=== PATIENT | female | born 1955 | race Caucasian/White ===

== ENCOUNTER → 2016-11-02 | Outpatient (CLI) | payer BC ==
[~2016-11-02] MED LIST: ACET-749 PO; AMB/10 PO; CALCTAB7 PO; CLR10 PO; DXM/4 PO; GLC/500 PO; LISI-461 PO; LORA-741 PO; LVNIS150; MULT-506 PO; RANI150T3 PO; SIMV-151 PO; WARF5TAB90 PO
[2016-11-02 10:01] LABS: ESTIMATED AVERAGE GLUCOSE 183 mg/dl; HA1C FLAG Normal (Normal)
== END | disposition home or self-care (01) ==
LOC: C.LAB 14:33
PROVIDERS: ATTEND Internal Medicine
DX: E11.9 Type 2 diabetes mellitus without complications (principal)

== ENCOUNTER → 2016-11-25 | Outpatient (CLI) | payer BC ==
[~2016-11-25] MED LIST changes: +OPTIRAY 320 IV PRN
--- NOTE | 2016-11-25 13:24 | DIAGNOSTIC IMAGING REPORT ---
CT SCAN OF THE ABDOMEN AND PELVIS WITH IV CONTRAST CLINICAL HISTORY: Ovarian cancer. COMPARISON STUDY: Abdominal CT dated 08/04/2016 and 09/11/2014. TECHNIQUE: Following the IV administration of 119 cc of Optiray 320, CT scan of the abdomen and pelvis is performed from the lung bases to the proximal femora. Images are reviewed in the axial, sagittal, and coronal planes. IV contrast was administered without complication. Automated dose control exposure was utilized. The examination is degraded by streak artifact from the left arm which could not be elevated above the abdomen. FINDINGS: Lung bases: The heart is top normal in size and without pericardial effusion. Scarring versus atelectasis is noted in the lingula. The lung bases are otherwise clear. There is a small hiatal hernia. Liver: The contrast-enhanced liver is enlarged, measuring 20.5 cm in length. The liver demonstrates diffusely diminished attenuation consistent with severe hepatic steatosis. There is no intrahepatic biliary ductal dilatation. The hepatic veins and portal veins are patent. Gallbladder: Surgically absent noting clips in the gallbladder fossa. Spleen: Normal in size and attenuation. The low-density splenic lesion seen on 08/04/2016 has decreased in size, now measuring 1.3 cm (previously measured 2.1 cm). Pancreas: Moderately atrophic. Adrenal glands: Unremarkable. Kidneys: The contrast enhanced kidneys demonstrate cortical atrophy and are without hydronephrosis. The kidneys enhance symmetrically. There is an 8.7 cm cyst in the interpolar left kidney. Abdominal vasculature: The abdominal aorta is normal in course and caliber noting scattered foci of atherosclerotic calcification. Bowel: The small bowel and colon are normal in course and caliber. There is mild colonic diverticulosis without CT evidence of acute diverticulitis. The appendix is well-visualized and normal. Peritoneum: There is no intraperitoneal free air or abdominal ascites. Findings suggest a history of previous ventral hernia repair. A small seroma in the ventral abdominal pannus has almost completely resolved from 08/04/2016. Lymphadenopathy: Metastatic lymphadenopathy has significantly improved as compared to 08/04/2016. The enlarged right cardiophrenic lymph node has almost completely resolved, now measuring up to 5 mm as seen on image #49 (previously measured 1.4 x 1.9 cm.) Left periaortic adenopathy and right pelvic sidewall adenopathy have resolved. A left external iliac chain node is significantly decreased in size, measuring 1.2 x 1.5 cm (previously measured 2.3 x 1.5 cm.) Pelvic viscera: The bladder is normal as visualized. The uterus is surgically absent. The cervical cuff is normal as imaged. The previously identified pelvic mass seen anterior to the rectum on 08/04/2016 has almost completely resolved. This now measures 0.8 x 1.3 cm (previously measured 2.6 x 3.5 cm). There is a fat-containing right inguinal hernia. Skeletal structures: The skeletal structures are osteopenic. Mild lumbosacral spondylosis is observed. No lytic or blastic lesions are seen. IMPRESSION: 1. Positive response to treatment, with near complete to complete resolution of the metastatic foci identified on 08/04/2016. See above. 2. The low-attenuation splenic lesion has significantly decreased in size from previous. 3. Hepatomegaly and hepatic steatosis. 4. Mild colonic diverticulosis without CT evidence of acute diverticulitis. 5. Additional changes as above. Electronically signed by: Mark Lux M.D. 11/25/2016 1:23 PM Dictated Date/Time: 11/25/2016 1:12 PM
--- NOTE | 2016-11-25 13:33 | DIAGNOSTIC IMAGING REPORT ---
CT OF THE CHEST WITH IV CONTRAST CLINICAL HISTORY: Ovarian cancer. COMPARISON STUDY: Chest CT August 04, 2016. TECHNIQUE: Following IV administration of 119 mL of Optiray-320, helical axial images of the chest were obtained. Images were viewed in the axial, sagittal and coronal planes. IV contrast was administered without complication. FINDINGS: A right internal jugular [id number] is in place. Thrombus along the catheter tip within the proximal SVC is noted. The thrombus measures 2.4 x 1.7 x 0.9 cm. In retrospect, this thrombus was probably present on prior exam but has increased in size. Mild cardiomegaly is noted. There is no pericardial effusion. The previously described right anterior diaphragmatic lymph node shown image 191 of [id number] has markedly decreased in size since exam of August 04, 2016. This node now measures 0.7 x 0.6 cm. It previously measured 1.6 x 1.6 cm. A splenic lesion is better depicted on the abdominal CT but is also decreased in size. No enlarged thoracic lymph nodes are present. The central airways are patent. There are no suspicious pulmonary nodule. No pneumothorax or pleural effusion is present. No suspicious osseous lesions are identified. No pulmonary emboli are identified on this examination. IMPRESSION: 1. 2.4 x 1.7 x 0.9 cm thrombus along the tip of the right internal jugular [id number]-[id number] within the proximal SVC. In retrospect, this thrombus was probably present on prior exam of August 04, 2016 but has increased in size. No pulmonary emboli identified. 2. Marked interval decrease in size of the previously described right anterior diaphragmatic lymph node as well as interval decrease in size of the splenic lesion. The findings represents a significant treatment response. Electronically signed by: Errol Leonardo M.D. 11/25/2016 1:31 PM Dictated Date/Time: 11/25/2016 1:11 PM
== END | disposition home or self-care (01) ==
LOC: C.CTS 12:15
PROVIDERS: ATTEND Nurse Practitioner Family
DX: C56.9 Malignant neoplasm of unspecified ovary (principal)

== ENCOUNTER → 2016-12-29 | Outpatient (CLI) | payer BC ==
[~2016-12-29] MED LIST changes: -LVNIS150; -OPTIRAY 320 IV PRN
[2016-12-29 09:49] LABS: ESTIMATED AVERAGE GLUCOSE 166 mg/dl; HA1C FLAG Normal (Normal)
== END | disposition home or self-care (01) ==
LOC: C.LAB 19:09
PROVIDERS: ATTEND Physician Assistant
DX: E11.9 Type 2 diabetes mellitus without complications (principal)

== ENCOUNTER → 2017-03-07 | Outpatient (CLI) | payer BC ==
[~2017-03-07] MED LIST changes: +OPTIRAY 320 IV PRN
--- NOTE | 2017-03-07 16:02 | DIAGNOSTIC IMAGING REPORT ---
CT ABD/PELVIS IV AND ORAL CONT CLINICAL HISTORY: Ovarian carcinoma COMPARISON STUDY: 11/25/2016 TECHNIQUE: Following the IV administration of 93 mL of Optiray-320, CT scan of the abdomen and pelvis was performed from the lung bases to the proximal femurs. Images are reviewed in the axial, sagittal, and coronal planes. IV contrast was administered without complication. CT DOSE: 1837.07 mGy.cm FINDINGS: Lower chest: The heart is normal in size and configuration, without pericardial effusion. The lung bases and pleural spaces are clear. Liver: There is hepatic steatosis. No focal masses are visualized. The portal vein is patent. Gallbladder: Surgically absent Spleen: Normal in size and attenuation. Pancreas: Unremarkable. Adrenal glands: Unremarkable. Kidneys: There is a stable 8.4 cm left renal cyst. Bowel: There are no transition zones indicate bowel obstruction. There is colonic diverticulosis. There are no acute peridiverticular inflammatory changes. The appendix appears normal. Peritoneum: There is no intraperitoneal free air or abdominal ascites. There is a small fat-containing right inguinal hernia. Vasculature: The abdominal aorta is normal in course and caliber. Adenopathy: The left external iliac lymph node has further decreased in size currently measuring 13 x 10 mm. Pelvic viscera: The uterus is surgically absent. The previously described nodule anterior the rectum measures 10 x 3 mm. Skeletal structures: No destructive osseous lesions are seen. IMPRESSION: 1. Hepatic steatosis 2. Further reduction in the size of the soft tissue nodule anterior to the rectum which currently measures 10 x 3 mm 3. Further decrease in the size of the left external iliac lymph node which probably measures 13 x 10 mm. No evidence of progressive lymphadenopathy. 4. No evidence of progressive metastatic disease Electronically signed by: Vinicius Maloney M.D. 03/07/2017 4:00 PM Dictated Date/Time: 03/07/2017 3:11 PM
--- NOTE | 2017-03-08 09:20 | DIAGNOSTIC IMAGING REPORT ---
CT OF THE CHEST WITH IV CONTRAST CLINICAL HISTORY: Ovarian cancer. COMPARISON STUDY: Chest CT November 25, 2016. TECHNIQUE: Following IV administration of 93 mL of Optiray-320, helical axial images of the chest were obtained. Images were viewed in the axial, sagittal and coronal planes. IV contrast was administered without complication. FINDINGS: Suspected thrombus along the tip of the right internal jugular Hkalsu-i-Lptn is similar to exam of November 25, 2016. The pulmonary arteries are suboptimally evaluated on this exam but there is no large central pulmonary embolus. The heart is mildly enlarged. There is no pericardial effusion. No enlarged axillary, mediastinal or hilar lymph nodes are present. The previously described right anterior diaphragmatic lymph node has continued to decrease in size. This now measures 4 mm in size. It previously measured 7 x 6 mm. The abdomen and pelvis will be reported separately but the previously described splenic lesion has decreased in size. This now measures 9 mm. It previously measured 1 cm. There are no suspicious osseous lesions. There are no suspicious pulmonary nodules. There is no pneumothorax or pleural effusion. IMPRESSION: 1. Findings consistent with a continued treatment response with interval decrease in size of the previously described right anterior diaphragmatic lymph node and the splenic lesion. 2. No significant change in suspected thrombus along the tip of the right internal jugular [id number] within the proximal SVC since prior exam. Electronically signed by: Errol Leonardo M.D. 03/08/2017 9:18 AM Dictated Date/Time: 03/07/2017 3:18 PM
== END | disposition home or self-care (01) ==
LOC: C.CTS 14:20
PROVIDERS: ATTEND Nurse Practitioner Family
DX: C56.9 Malignant neoplasm of unspecified ovary (principal); R91.8 Other nonspecific abnormal finding of lung field; K76.0 Fatty (change of) liver, not elsewhere classified

== ENCOUNTER → 2017-05-11 | Outpatient (CLI) | payer BC ==
[~2017-05-11] MED LIST changes: -CLR10 PO; -DXM/4 PO; -OPTIRAY 320 IV PRN; -RANI150T3 PO
--- NOTE | 2017-05-11 14:56 | MAMMOGRAPHY REPORT ---
BILATERAL DIGITAL SCREENING MAMMOGRAM TOMOSYNTHESIS WITH CAD: 05/11/2017 CLINICAL HISTORY: Routine screening. Patient has no complaints. TECHNIQUE: Breast tomosynthesis in addition to standard 2D mammography was performed. Current study was also evaluated with a Computer Aided Detection (CAD) system. COMPARISON: Comparison is made to exams dated: 01/27/2016 mammogram, 01/19/2016 mammogram, 01/16/2015 m ammogram, 08/27/2013 mammogram, 08/10/2012 mammogram, and 08/09/2011 mammogram - [facility]. BREAST COMPOSITION: The tissue of both breasts is almost entirely fatty. FINDINGS: No suspicious masses, calcifications, or areas of architectural distortion are noted in ei ther breast. There has been no significant interval change compared to prior exams. IMPRESSION: ACR BI-RADS CATEGORY 1: NEGATIVE There is no mammographic evidence of malignancy. A 1 year screening mammogram is recommended. The pa tient will receive written notification of the results. Approximately 10% of breast cancers are not detected with mammography. A negative mammographic report should not delay biopsy if a clinically suggestive mass is present. Tammy Rosa M.D. /:05/11/2017 13:20:34 Product Inspection Supervisor: Iraida Silva, M, [facility] letter sent: Normal 1/2 BI-RADS Code: ACR BI-RADS Category 1: Negative
== END | disposition home or self-care (01) ==
LOC: C.MAMM 12:20
PROVIDERS: ATTEND Obstetrics & Gynecology
DX: Z12.31 Encounter for screening mammogram for malignant neoplasm of breast (principal)

== ENCOUNTER → 2017-11-03 | Outpatient (CLI) | payer OTHER ==
[~2017-11-03] MED LIST changes: -ACET-749 PO
== END | disposition home or self-care (01) ==
LOC: C.LAB 13:39
PROVIDERS: ATTEND Obstetrics & Gynecology
DX: Z85.43 Personal history of malignant neoplasm of ovary (principal)

== ENCOUNTER → 2018-05-14 | Outpatient (CLI) | payer OTHER ==
[~2018-05-14] MED LIST changes: -WARF5TAB90 PO
--- NOTE | 2018-05-15 14:44 | MAMMOGRAPHY REPORT ---
BILATERAL DIGITAL SCREENING MAMMOGRAM TOMOSYNTHESIS WITH CAD: 05/14/2018 CLINICAL HISTORY: Routine screening. Patient has no complaints. TECHNIQUE: The study was acquired using full field digital technology and interpreted from soft copy. Breast tomosynthesis in addition to standard 2D mammography was performed. Current study was also ev aluated with a Computer Aided Detection (CAD) system. COMPARISON: Comparison is made to exams dated: 05/11/2017 mammogram, 01/27/2016 mammogram, 01/19/2016 ma mmogram, 01/16/2015 mammogram, 01/27/2016 ultrasound, and 08/10/2012 mammogram - [facility] enter. BREAST COMPOSITION: The tissue of both breasts is almost entirely fatty. FINDINGS: There are stable intramammary lymph nodes in the upper outer posterior left breast. A port ion of a MediPort hub is incompletely visualized in the superior, far posterior right breast, project ing over the pectoralis muscle on the MLO view. No suspicious mass, architectural distortion or clust er of microcalcifications is seen. IMPRESSION: ACR BI-RADS CATEGORY 1: NEGATIVE There is no mammographic evidence of malignancy. A 1 year screening mammogram is recommended.( 019) The patient will receive written notification of the results. Some breast cancers are not detected with mammography. A negative mammographic report should not benitez y biopsy if a clinically suggestive mass is present. Erica Monreal M.D. ay/:05/14/2018 16:14:50 Director Of Patient Financial Services: RT Sylvia(Iraida)(M), [facility] letter sent: Normal 1/2 BI-RADS Code: ACR BI-RADS Category 1: Negative
== END | disposition home or self-care (01) ==
LOC: C.MAMM 12:04
PROVIDERS: ATTEND Obstetrics & Gynecology
DX: Z12.31 Encounter for screening mammogram for malignant neoplasm of breast (principal)

== ENCOUNTER 2021-08-03 14:00 | Inpatient (IN) ==
--- NOTE | 2021-08-03 14:42 | Emergency Department Note ---
History of Present Illness General Chief complaint: Shortness of Breath/Dyspnea Stated complaint: BLOOD CLOT IN LUNG, SOB Time Seen by Provider: 08/03/21 14:20 Source: patient History of Present Illness Provider complaint: Chest pain and shortness of breath Onset (ago): week(s) 2 Location: chest Radiation: non-radiation Pain Consistency: + constant Maximum Pain Intensity: 7 Quality: + other (Like a knot in her chest) Relieved By: + none Exacerbated By: + other (Shortness of breath worsened with exertion) Associated symptoms: + chest pain, + cough and + shortness of breath; no fever/chills or no nausea/vomiting This is an 85-year-old female presents with chest pain and shortness of breath for the past 2 weeks. She describes the pain as a knot in her chest. It is located in the middle of her chest without radiation. She rates it a 7 out of 10 in severity. It is associated with shortness of breath. Her shortness of breath gets worse when she walks around. She has had a cough with the symptoms and was treated for a bronchitis. She had a negative Covid test 2 weeks ago. She had a CAT scan of the chest and abdomen pelvis today due to her history of lung cancer and she was found to have clots in her lungs. She does have a prior history of PE about 4 years ago. This occurred after she had a hysterectomy for ovarian cancer. She was on Coumadin for a time but is no longer on any anticoagulants. She did tolerate heparin as well as Coumadin well. No history of bleeding. She has noticed swelling to both of her feet over the past 2 weeks as well. She had some diarrhea which is now resolved. She denies any fever, abdominal pain, vomiting, urinary symptoms or black or bloody stools. Home Medications Medication Instructions Recorded Confirmed Type lisinopril 10 mg tablet 10 mg PO QAM 08/27/18 08/03/21 History lorazepam 0.5 mg tablet 0.5 mg PO TID PRN 08/27/18 08/03/21 History metformin 500 mg tablet 1,000 mg PO BID 08/27/18 08/03/21 History multivitamin 1 tab PO QAM 08/27/18 08/03/21 History simvastatin 20 mg tablet 20 mg PO PM 08/27/18 08/03/21 History zolpidem 10 mg tablet 1 tab PO HS 08/27/18 08/03/21 History prochlorperazine maleate 5 mg 5 mg PO TID PRN 06/18/21 08/03/21 History tablet (Compazine) olanzapine 2.5 mg tablet 2.5 mg PO HS 08/03/21 08/03/21 History oxycodone 5 mg tablet 5 mg PO .EVERY 4-6 HOURS PRN 08/03/21 08/03/21 History pantoprazole 40 mg tablet,delayed 40 mg PO QAM 08/03/21 08/03/21 History release prednisone 20 mg tablet 20 mg PO DAILY 08/03/21 08/03/21 History Allergies Allergy/AdvReac Type Severity Reaction Status Date / Time No Known Allergies Allergy Verified 08/03/21 15:53 Past Med/Surg History Medical History Anxiety CKD (chronic kidney disease), stage III Degenerative disc disease Diabetes mellitus, type 2 History of anesthesia reaction difficulty waking after cataract surgery Hyperlipidemia Hypertension Metastatic disease ovarian cancer with 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 Treated with systemic chemotherapy. Continued surveillance and finding of lymphadenopathy/nodule of the pelvis February 23, 2018 Status post fine-needle aspiration April 18, 2018 revealing metastatic adenocarcinoma consistent with ovarian origin. Status post completion of stereotactic body radiation therapy June 04, 2018. 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 Treated with systemic chemotherapy. Continued surveillance and finding of lymphadenopathy/nodule of the pelvis February 23, 2018 Status post fine-needle aspiration April 18, 2018 revealing metastatic adenocarcinoma consistent with ovarian origin." Surgical History History of bilateral cataract extraction History of cholecystectomy History of esophagogastroduodenoscopy (EGD) History of tonsillectomy and adenoidectomy History of tooth extraction wisdom teeth History of total abdominal hysterectomy and bilateral salpingo-oophorectomy 2013 Hx of inguinal hernia repair unsure which side Family History Grandmother Family history of diabetes mellitus maternal Social History Smoking Status: Former smoker Smoking End Date: quit 20 years ago; Second Hand Exposure: Yes (parents smoked); Hx Alcohol Use: No Hx Substance Use: No Preferred Language: Bur[place]ian Communication Ability: Effective Medication Care Manager Required: No Beliefs That Will Affect Care: None Current Living Situation: Alone Other Information That Helps Us Care for You: No Feels Safe at Home: Yes Safety Concerns: Feels Safe At This Time Assistive Devices: Glasses Review of Systems See HPI for pertinent positives & negatives. and A total of 10 systems reviewed and were otherwise negative Physical Exam Vital Signs Vital Signs - 24 hr 08/03/21 14:02 08/03/21 14:15 08/03/21 14:33 Temperature 36.4 C L Temperature Source Temporal Artery Scan Pulse Rate 108 H 108 H Pulse Rate from SpO2 Sensor Pulse Rhythm Regular Respiratory Rate 20 20 Respiratory Effort / Characteristics Non-Labored Spontaneous Respiratory Depth Normal Blood Pressure 106/71 Blood Pressure Mean 82 Blood Pressure Position Sitting Pulse Oximetry 93 93 Oxygen Delivery Method Room Air Room Air Room Air Sepsis Recent Fever Within 48 Hours No Sepsis New/Unexplained Change in Mental Status N/A Sepsis Action Taken by Nursing No Action Required 08/03/21 15:00 Temperature Temperature Source Pulse Rate 107 H Pulse Rate from SpO2 Sensor 104 H Pulse Rhythm Respiratory Rate 17 Respiratory Effort / Characteristics Respiratory Depth Blood Pressure 112/93 Blood Pressure Mean 99 Blood Pressure Position Pulse Oximetry 96 Oxygen Delivery Method Room Air Sepsis Recent Fever Within 48 Hours Sepsis New/Unexplained Change in Mental Status Sepsis Action Taken by Nursing Constitutional: Vital signs reviewed. Blood pressure is 137/84. Eyes: Pupils are equal round reactive to light. Conjunctiva are noninjected. ENT: Pharynx is clear without erythema or exudate. Mucous membranes are moist. Neck supple without meningeal signs. Respiratory: Clear to auscultation bilaterally. Breath sounds are equal bilaterally. Cardiovascular: Tachycardic. Heart rate 108. Regular rhythm. GI: Soft, nondistended and nontender. Bowel sounds are present. Musculoskeletal: Bilateral pedal edema. No lower extremity tenderness. Integumentary: No cyanosis. or jaundice. Neurological: The patient is awake and alert. No focal deficits. Psychiatric: Normal affect. Not anxious appearing. Course Administered Medications Heparin Sodium/Dextrose (Heparin Sodium/Dextrose) 25,000 units in 500 mls @ 24 mls/hr IV .[id number] [facility]; Protocol Stop: 09/02/21 15:14 Last Admin: 08/03/21 15:02 Dose: 1,200 units/hr, 24 mls/hr Documented by: [id number] Cosigned by: [id number] Sodium Chloride (Nss 1000ml) 1,000 mls @ 80 mls/hr IV .[id number] [facility] Stop: 09/02/21 18:29 Last Admin: 08/03/21 18:52 Dose: 80 mls/hr Documented by: [id number] Discontinued Medications Heparin Sodium (Porcine) (Heparin Sod (Porcine) 1000 Unit/Ml) 1 units IV NOW ONE Stop: 08/03/21 15:04 Last Admin: 08/03/21 15:02 Dose: 5,000 units Documented by: [id number] Cosigned by: [id number] Heparin Sodium/Dextrose (Heparin Iv Adult Wt-Based Standard With Bolus Protocol) 1 ea IV NOW STA; Protocol Stop: 08/03/21 14:49 Last Admin: 08/03/21 15:05 Dose: Not Given Documented by: [id number] Critical Care Time Critical Care Time: Yes Total Critical Care Time: 40 I have personally spent approximately 40 minutes of critical care time in the direct management of this patient. This includes bedside care, interpretation of diagnostic studies, and testing, discussion with consultants, patient, and family members, and other required patient management activities. These minutes are in excess of all separately billable procedures. Medical Decision Making Differential Diagnosis Pulmonary emboli, DVT, saddle embolus, right heart strain, pulmonary infarct Medical Records Attestation: I reviewed the patient's medical records. I did perform a limited focused review of portions of the patient's old chart on the electronic medical record. The patient had a CT scan of the chest and abdomen pelvis today which showed the followin. Extensive bilateral pulmonary emboli including a saddle embolus with mild right-sided heart strain. 2. Interval development of small bilateral pleural effusions. 3. Interval progression of the metastatic disease within the chest, abdomen, and pelvis as described above. 4. Interval development of mild right hydronephrosis to the level of the ureteropelvic junction. No ureteral stones identified. Metastatic disease at the ureteropelvic junction would be the diagnosis of exclusion. 5. A small right lower lobe pulmonary infarct. Home Medications Current Medication List: was personally reviewed by me Laboratory Data Attestation: I reviewed the patient's lab results. Result diagrams: 08/03/21 14:16 08/03/21 14:16 Lab Results 08/03/21 08/03/21 08/03/21 Range/Units 14:16 14:16 14:16 WBC 9.51 (4.8-10.8) K/uL RBC 3.00 L (4.2-5.4) M/uL Hgb 10.8 L (12.0-16.0) g/dL Hct 32.9 L (37-47) % MCV 109.7 H (80-100) fL MCH 36.0 H (25-34) pg MCHC 32.8 (32-36) g/dL RDW Std Deviation 80.9 H (36.4-46.3) fL RDW Coeff of Cely 20.1 H (11.5-14.5) % Plt Count 196 (130-400) K/uL MPV 10.2 (7.4-10.4) fL Immature Gran % (Auto) 0.2 % Neut % (Auto) 78.7 % Lymph % (Auto) 13.0 % Rowan % (Auto) 7.6 % Eos % (Auto) 0.4 % Baso % (Auto) 0.1 % Neut # (Auto) 7.48 H (1.4-6.5) K/uL Lymph # (Auto) 1.24 (1.2-3.4) K/uL Rowan # (Auto) 0.72 H (0.11-0.59) K/uL Eos # (Auto) 0.04 (0-0.5) K/uL Baso # (Auto) 0.01 (0-0.2) K/uL Immature Gran # (Auto) 0.02 (0.00-0.02) K/uL Polychromasia 1+ Anisocytosis Present Tear Drop Cells 1+ Ovalocytes 1+ PT 10.4 (9.0-12.0) Seconds INR 1.0 (0.9-1.1) APTT 21.8 (21.0-31.0) Seconds PTT Ratio 0.8 Sodium 133 L (136-145) mmol/L Potassium 4.3 (3.5-5.1) mmol/L Chloride 102 (98-107) mmol/L Carbon Dioxide 22 (21-32) mmol/L Anion Gap 9.0 (3-11) BUN 40 H (7-18) mg/dl Creatinine 1.55 H (0.6-1.2) mg/dl Est Cr Clr Drug Dosing 37.7 ml/min Est GFR ( Amer) 39.7 ml/min Est GFR (Non-Af Amer) 34.3 ml/min BUN/Creatinine Ratio 26.1 H (10-20) Glucose 121 H (70-99) mg/dl Calcium 9.1 (8.5-10.1) mg/dl Total Bilirubin 0.5 (0.2-1) mg/dl AST 47 H (15-37) U/L ALT 16 (12-78) U/L Alkaline Phosphatase 113 (45-117) U/L Troponin I < 0.015 (0-0.045) ng/ml NT-Pro-B Natriuret Pep 223 (0-900) pg/ml Total Protein 6.4 (6.4-8.2) gm/dl Albumin 2.5 L (3.4-5.0) gm/dl Globulin 3.9 (2.5-4.0) gm/dl Albumin/Globulin Ratio 0.6 L (0.9-2) COVID-19 Eval Order SARS-CoV-2 (PCR) (Negative) 08/03/21 08/03/21 Range/Units 14:20 14:20 WBC (4.8-10.8) K/uL RBC (4.2-5.4) M/uL Hgb (12.0-16.0) g/dL Hct (37-47) % MCV (80-100) fL MCH (25-34) pg MCHC (32-36) g/dL RDW Std Deviation (36.4-46.3) fL RDW Coeff of Cely (11.5-14.5) % Plt Count (130-400) K/uL MPV (7.4-10.4) fL Immature Gran % (Auto) % Neut % (Auto) % Lymph % (Auto) % Rowan % (Auto) % Eos % (Auto) % Baso % (Auto) % Neut # (Auto) (1.4-6.5) K/uL Lymph # (Auto) (1.2-3.4) K/uL Rowan # (Auto) (0.11-0.59) K/uL Eos # (Auto) (0-0.5) K/uL Baso # (Auto) (0-0.2) K/uL Immature Gran # (Auto) (0.00-0.02) K/uL Polychromasia Anisocytosis Tear Drop Cells Ovalocytes PT (9.0-12.0) Seconds INR (0.9-1.1) APTT (21.0-31.0) Seconds PTT Ratio Sodium (136-145) mmol/L Potassium (3.5-5.1) mmol/L Chloride (98-107) mmol/L Carbon Dioxide (21-32) mmol/L Anion Gap (3-11) BUN (7-18) mg/dl Creatinine (0.6-1.2) mg/dl Est Cr Clr Drug Dosing ml/min Est GFR ( Amer) ml/min Est GFR (Non-Af Amer) ml/min BUN/Creatinine Ratio (10-20) Glucose (70-99) mg/dl Calcium (8.5-10.1) mg/dl Total Bilirubin (0.2-1) mg/dl AST (15-37) U/L ALT (12-78) U/L Alkaline Phosphatase (45-117) U/L Troponin I (0-0.045) ng/ml NT-Pro-B Natriuret Pep (0-900) pg/ml Total Protein (6.4-8.2) gm/dl Albumin (3.4-5.0) gm/dl Globulin (2.5-4.0) gm/dl Albumin/Globulin Ratio (0.9-2) COVID-19 Eval Order Covid19 at [facility] SARS-CoV-2 (PCR) NEGATIVE (Negative) ECG Data Attestation: I personally reviewed and interpreted this ECG as follows: Indication: + chest pain and + SOB/dyspnea Rate (beats per minute): 102 Rhythm: + sinus tachycardia ECG ST segments: + T-wave inversions; no ST elevation ECG Findings: + Other (Low voltage QRS); no PVCs Comparison ECG Date: no prior available MDM Narrative I did evaluate the patient as noted above. She complains of a 2-week history of cough, chest pain and shortness of breath. She states she gets very short of breath from just walking short distances. She has a prior history of DVT and was on Coumadin after her hysterectomy 4 years ago. She denies any history of brain mets or any headaches or neurologic symptoms. I did discuss risks and benefits of anticoagulation with her and her family member and she was agreeable to treatment. I did discuss case with Dr. Khalil of pulmonology/critical care. As patient is hemodynamically stable at this time he did not feel the patient required transfer for embolectomy or TPA. Her port was accessed. I did start her on heparin IV with a bolus and continuous drip. I did place an order for continuous cardiac monitoring. The monitor showed sinus tachycardia at a rate of 102 bpm. I did order and personally review the patient's 12-lead EKG as described above. She does have T wave inversions in the septal leads with no ST elevations. A prior EKG is not available. I did discuss case with Dr. Madrid who approved a stat echocardiogram at the bedside. I did order and review the patient's blood work as noted in the electronic medical record. CBC demonstrates a chronic anemia with a hemoglobin 10.8. Platelet count is 196. Coags are unremarkable. CMP demonstrates a elevated creatinine at 1.55 with a BUN of 40. Sodium is 133. Troponin is negative. I did discuss the case with the hospitalist and medical case worker. Stat echocardiogram at the bedside was perf ormed and did not show any signs of significant right heart strain. The patient remained hemodynamically stable. She was admitted to the ICU for further care. Impression & Plan Acute saddle pulmonary embolism, Ovarian ca, Pulmonary emboli, Embolism, pulmonary with infarction, Chronic anemia, Elevated serum creatinine Discharge Plan Visit Data Chief Complaint: Shortness of Breath/Dyspnea Stated Complaint: BLOOD CLOT IN LUNG, SOB ED Provider: Fer Ramos Discharge Problem: Acute saddle pulmonary embolism, Ovarian ca, Pulmonary emboli, Embolism, pulm onary with infarction, Chronic anemia, Elevated serum creatinine Patient Disposition: Admitted As Inpatient Discharge Instructions Interventions: ED Discharge Assessment Last Done: 08/03/21 17:56 Discharge Problem: Acute saddle pulmonary embolism Qualifiers: Acute cor pulmonale presence: with acute cor pulmonale Qualified Code(s): I26.02 - Saddle embolus of pulmonary artery with acute cor pulmonale Ovarian ca Qualifiers: Laterality: unspecified laterality Qualified Code(s): C56.9 - Malignant neoplasm of unspecified ovary Pulmonary emboli Qualifiers: Pulmonary embolism type: unspecified Chronicity: acute Acute cor pulmonale presence: with acute cor pulmonale Qualified Code(s): I26.09 - Other pulmonary embolism with acute cor pulmonale
[2021-08-03] MEDS ORDERED: Heparin IV Adult Wt-Based Standard WITH Bolus Protocol IV STA (14:48)
[2021-08-03] MEDS: HEPARIN SODIUM/DEXTROSE 25,000 UNITS/500 ML BAG IV SCH (15:02)
[2021-08-03] MEDS ORDERED: HEPARIN SOD (PORCINE) 1000 UNIT/ML IV ONE (15:03)
[2021-08-03 15:04] LABS: Basophils # (auto) 0.01 K/uL (0-0.2); Basophils % (auto) 0.1 %; Eosinophils # (auto) 0.04 K/uL (0-0.5); Eosinophils % (auto) 0.4 %; Hematocrit (blood only) 32.9 % (37-47); Hemoglobin 10.8 g/dL (12.0-16.0); Immature Granulocytes # (auto) 0.02 K/uL (0.00-0.02); Immature Granulocytes % (auto) 0.2 %; Lymphocytes # (auto) 1.24 K/uL (1.2-3.4); Mean Corpuscular Hgb Conc 32.8 g/dL (32-36); Mean Corpuscular Volume 109.7 fL (80-100); Mean Platelet Volume 10.2 fL (7.4-10.4); Monocytes # (auto) 0.72 K/uL (0.11-0.59); Monocytes % (auto) 7.6 %; Neutrophils # (auto) 7.48 K/uL (1.4-6.5); Neutrophils % (auto) 78.7 %; Platelet Count 196 K/uL (130-400); RDW Coefficient of Variation 20.1 % (11.5-14.5); RDW Standard Deviation 80.9 fL (36.4-46.3); White Blood Count 9.51 K/uL (4.8-10.8)
[2021-08-03 15:14] LABS: Alanine Aminotransferase 16 U/L (12-78); Albumin Level 2.5 gm/dl (3.4-5.0); Aspartate Aminotransferase 47 U/L (15-37); BUN Creatinine Ratio 26.1 (10-20); Blood Urea Nitrogen 40 mg/dl (7-18); Calcium 9.1 mg/dl (8.5-10.1); Carbon Dioxide 22 mmol/L (21-32); Chloride 102 mmol/L (98-107); Creatinine Clr Calc Pharmacy 37.7 ml/min; Est GFR (African American) 39.7 ml/min; Est GFR (Non-African American) 34.3 ml/min; Glucose 121 mg/dl (70-99); Potassium 4.3 mmol/L (3.5-5.1); Sodium 133 mmol/L (136-145)
[2021-08-03 15:19] LABS: Partial Thromboplastin Ratio 0.8; Partial Thromboplastin Time 21.8 Seconds (21.0-31.0); Prothrombin Time 10.4 Seconds (9.0-12.0)
[2021-08-03 15:20] LABS: Albumin Globulin Ratio 0.6 (0.9-2); Alkaline Phosphatase 113 U/L (45-117); Bilirubin,Total 0.5 mg/dl (0.2-1); Globulin 3.9 gm/dl (2.5-4.0); NT Pro B Type Natriuretic Pept 223 pg/ml (0-900); Total Protein 6.4 gm/dl (6.4-8.2); Troponin I < 0.015 ng/ml (0-0.045)
[2021-08-03 15:31] LABS: Anisocytosis Present; Ovalocytes 1+; Polychromasia 1+; Tear Drop Cells 1+
--- NOTE | 2021-08-03 15:52 | History & Physical Report ---
Date of Service August 03, 2021 Assessment & Plan (1) Acute saddle pulmonary embolism: Plan: -Admit to ICU -Patient presenting by referral of outpatient oncologist after scheduled CT chest/ABD/pelvis showed acute saddle pulmonary embolism with mild right heart strain -In the ED, patient is hemodynamically stable and saturating well on room air -IV heparin has been started -Echo pending (2) Ovarian ca: (3) Metastatic disease: Plan: -Initial diagnosis in 2013 -Current treatment plan is p.o. Votrient -however on hold due to recent fatigue -Follows with Dr. 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 Patient reports being diagnosed with bronchitis a few weeks ago. She was placed on Augmentin. She reports improvement in cough however shortness of breath has gotten worse. She reports ongoing fatigue and poor appetite. She was placed on prednisone to try and stimulate her appetite which did not help. She was also told to hold Votrient for two weeks to see if that would improve her symptoms as well. Patient denies chest pain. No lightheadedness, dizziness, diaphoresis, or syncopal events. No abdominal pain, vomiting, or diarrhea. Denies fever and chills. No urinary symptoms. In the ED, patient is hemodynamically stable. She was started on IV heparin. Allergies Allergy/AdvReac Type Severity Reaction Status Date / Time No Known Allergies Allergy Verified 08/03/21 15:53 Home Medications Medication Instructions Recorded Confirmed Type lisinopril 10 mg tablet 10 mg PO QAM 08/27/18 08/03/21 History lorazepam 0.5 mg tablet 0.5 mg PO TID PRN 08/27/18 08/03/21 History metformin 500 mg tablet 1,000 mg PO BID 08/27/18 08/03/21 History multivitamin 1 tab PO QAM 08/27/18 08/03/21 History simvastatin 20 mg tablet 20 mg PO PM 08/27/18 08/03/21 History zolpidem 10 mg tablet 1 tab PO HS 08/27/18 08/03/21 History prochlorperazine maleate 5 mg 5 mg PO TID PRN 06/18/21 08/03/21 History tablet (Compazine) olanzapine 2.5 mg tablet 2.5 mg PO HS 08/03/21 08/03/21 History oxycodone 5 mg tablet 5 mg PO .EVERY 4-6 HOURS PRN 08/03/21 08/03/21 History pantoprazole 40 mg tablet,delayed 40 mg PO QAM 08/03/21 08/03/21 History release prednisone 20 mg tablet 20 mg PO DAILY 08/03/21 08/03/21 History Past Med/Surg History Medical History Anxiety CKD (chronic kidney disease), stage III Degenerative disc disease Diabetes mellitus, type 2 History of anesthesia reaction difficulty waking after cataract surgery Hyperlipidemia Hypertension Metastatic disease ovarian cancer with 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 Treated with systemic chemotherapy. Continued surveillance and finding of lymphadenopathy/nodule of the pelvis February 23, 2018 Status post fine-needle aspiration April 18, 2018 revealing metastatic adenocarcinoma consistent with ovarian origin. Status post completion of stereotactic body radiation therapy June 04, 2018. 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 Treated with systemic chemotherapy. Continued surveillance and finding of lymphadenopathy/nodule of the pelvis February 23, 2018 Status post fine-needle aspiration April 18, 2018 revealing metastatic adeno carcinoma consistent with ovarian origin." Surgical History History of bilateral cataract extraction History of cholecystectomy History of esophagogastroduodenoscopy (EGD) History of tonsillectomy and adenoidectomy History of tooth extraction wisdom teeth History of total abdominal hysterectomy and bilateral salpingo-oophorectomy 2013 Hx of inguinal hernia repair unsure which side Family History Grandmother Family history of diabetes mellitus maternal Social History Smoking Status: Former smoker Smoking End Date: quit 20 years ago; Second Hand Exposure: Yes (parents smoked); Hx Alcohol Use: No Hx Substance Use: No Preferred Language: Divehi Communication Ability: Effective Grain Trader Required: No Beliefs That Will Affect Care: None Current Living Situation: Alone Other Information That Helps Us Care for You: No Feels Safe at Home: Yes Safety Concerns: Feels Safe At This Time Assistive Devices: None Review of Systems Review of Systems: ROS per HPI, all other systems reviewed and negative Physical Exam Physical Exam: please refer to Dr. Li's addendum for physical exam Results & Data Results & Data ([facility]) Vital Signs (Past 12 Hours) Vital Signs Temp Pulse Resp BP Pulse Ox 08/03/21 15:00 107 H 17 112/93 96 08/03/21 14:33 108 H 20 93 08/03/21 14:02 36.4 C L 108 H 20 106/71 93 Laboratory Results Short CBC 08/03/21 Range/Units 14:16 WBC 9.51 (4.8-10.8) K/uL Hgb 10.8 L (12.0-16.0) g/dL Hct 32.9 L (37-47) % Plt Count 196 (130-400) K/uL BMP 08/03/21 14:16 Sodium 133 L Potassium 4.3 Chloride 102 Carbon Dioxide 22 BUN 40 H Creatinine 1.55 H Glucose 121 H Calcium 9.1 Cardiac Enzymes 08/03/21 Range/Units 14:16 Troponin I < 0.015 (0-0.045) ng/ml Liver Function 08/03/21 Range/Units 14:16 Total Bilirubin 0.5 (0.2-1) mg/dl AST 47 H (15-37) U/L ALT 16 (12-78) U/L Alkaline Phosphatase 113 (45-117) U/L Albumin 2.5 L (3.4-5.0) gm/dl Diagnostic Findings CT CHEST/ABD/PELVIS IMPRESSION: 1. Extensive bilateral pulmonary emboli including a saddle embolus with mild right-sided heart strain. 2. Interval development of small bilateral pleural effusions. 3. Interval progression of the metastatic disease within the chest, abdomen, and pelvis as described above. 4. Interval development of mild right hydronephrosis to the level of the ureteropelvic junction. No ureteral stones identified. Metastatic disease at the ureteropelvic junction would be the diagnosis of exclusion. 5. A small right lower lobe pulmonary infarct. Code Status & VTE Plan VTE Prophylaxis Plan VTE Prophylaxis will be ordered: Yes Supervising Physician Co-Signing Physician Notes Pt is 65 y/o F with hx of Metastatic Ovarian Ca, hx of PE (2015- was on Coumadin), HTn, HLD, DMII, CKD, Anxiety admitted for Saddle PE. Pt has been having cough and exertional SOB for 3 weeks. Exam: NAD, well developed Card: Normal S1/S2, no murmur Lungs: R sided chest port in place, CTA Abd: mild distention, soft and NT LE: mild pitting edema of the RLE but no erythema or warmth Psych: AAOx3 A/P: Saddle PE: -pt is not hypoxic -started on heparin gtt -admitted to ICU for now ---- if pt does well overnight will transfer to PCU -Echo: 60-65% and trop neg - will get a doppler of the RLE ANNIE: -last Cr as outpt was 1.27 -will monitor BMP Metastatic Ovarian Ca: -[facility]s [facility] -currently not on any treatment -will need chronic AC treatment due to current PE Agree with other plans as above by SHARITA Armstrong (1) Acute saddle pulmonary embolism Acute cor pulmonale presence: with acute cor pulmonale Qualified Code(s): I26.02 - Saddle embolus of pulmonary artery with acute cor pulmonale
[2021-08-03] MEDS ORDERED: DEXTROSE 50% 50 ML SYRINGE IV PRN (18:24)
[2021-08-03] MEDS ORDERED: CARBOHYDRATES FOR HYPOGLYCEMIA PO PRN (18:24)
[2021-08-03] MEDS ORDERED: ICU PROTOCOL FOR HYPERGLYCEMIA PRN (18:24)
[2021-08-03] MEDS ORDERED: GLUCOSE 40% GEL 15 GM TUBE PO PRN (18:24)
[2021-08-03] MEDS ORDERED: GLUCOSE 10 TABS/TUBE PO PRN (18:24)
[2021-08-03] MEDS ORDERED: GLUCAGON FOR INJ 1 MG VIAL SQ PRN (18:24)
[2021-08-03] MEDS: SODIUM CHLORIDE 0.9% 1000ML 1,000 ML IV SCH (18:52)
[2021-08-03] MEDS: INSULIN ASPART 100 UNITS/ML 3 ML PEN SC SCH ×2 (20:12→21:02)
--- NOTE | 2021-08-03 20:33 | Critical Care Consultation ---
Date of Consultation August 03, 2021 Assessment & Plan (1) Acute saddle pulmonary embolism: Impression: 65-year-old female with metastatic ovarian cancer presents to the ICU following discovery of acute saddle PE and currently on heparin drip. Neuro - [facility] ICU: Negative Anxietycontinue Zyprexa Cardiac - HTNhold lisinopril for now Tachycardiamild tachycardia with rate in the low 100s likely secondary to pulmonary embolism. No evidence of right heart strain on echo and troponin with in normal limits Continuous monitor on telemetry Respiratory - Acute saddle PECT chest showed extensive bilateral pulmonary emboli including a saddle embolus with mild right heart strain, small right lower lobe pulmonary infarct. Interval progression of metastatic disease within the chest abdomen pelvis was also noted -TTE without evidence of cor pulmonale and troponin negative, hemodynamically stable, no current indication for lysis -Continue with heparin drip for now -No current respiratory distress -Continuous monitoring on pulse ox GI - Diabetic diet Continue PPI RENAL/LYTES - ANNIE on CKD stage IIIcreatinine 1.55 with baseline of 1.13 on this admission -Suspect poor p.o. intake likely playing a role, patient is remained hemodynamically stable without episode of hypotension -CT abdomen and pelvis did show mild right hydronephrosis to ureteropelvic junction with no ureteral stones identified. Would question whether this is related to her metastatic disease -Continue with gentle fluid resuscitation -Trend BMP and monitor, consider nephrology consult if worsening -Hold lisinopril, renally adjust medications and avoid nephrotoxins - Strict I's and O's ENDO - DM type IIhold Metformin favor of sliding scale -ICU hyperglycemic protocol HEME - H&H stable, monitor routine CBCs ID - No indication for infectious process at this time LINES/IV ACCESS - Peripheral IVs DVT PROPHYLAXIS - SCDs, heparin drip Thank you for allowing us to participate in the care of this patient. Please refer to my attending physician's documentation for any further recommendations. 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 Patient recently underwent treatment for bronchitis with 10 days of Augmentin after she had reports of cough and shortness of breath. Recently shortness of breath had gotten worse and she felt increasingly fatigued, which was worsened with activity. She also complains of recent loss of appetite and weight loss and she had been placed on prednisone to try and stimulate appetite which she states did not improve. She is on Votrient and was held for 2 weeks to see if her symptoms improved. She was placed on heparin drip in the emergency department. Transthoracic echo did not show evidence of right heart strain and she is currently hemodynamically stable without respiratory distress. Patient did state that she had DVT and PE in the past and was on Coumadin at that time. Will monitor in ICU overnight, can likely downgrade tomorrow if patient remains hemodynamically stable Currently patient denies headaches, dizziness, fever, sore throat, productive cough, chest pain or palpitations. She does report some mild abdominal discomfort in the right lower quadrant of her abdomen which she states is an ongoing issue and thought to be related to her cancer. She had a recent episodes of diarrhea when she was on Augmentin but subsided once her 10-day regimen was complete. She states that she has severe dyspnea with activity and ambulation. Patient also states that she has had some edema in her lower extremities bilaterally which is new. She has a lower extremity Doppler pending. Allergies Allergy/AdvReac Type Severity Reaction Status Date / Time No Known Allergies Allergy Verified 08/03/21 15:53 Home Medications Medication Instructions Recorded Confirmed Type lisinopril 10 mg tablet 10 mg PO QAM 08/27/18 08/03/21 History lorazepam 0.5 mg tablet 0.5 mg PO TID PRN 08/27/18 08/03/21 History metformin 500 mg tablet 1,000 mg PO BID 08/27/18 08/03/21 History multivitamin 1 tab PO QAM 08/27/18 08/03/21 History simvastatin 20 mg tablet 20 mg PO PM 08/27/18 08/03/21 History zolpidem 10 mg tablet 1 tab PO HS 08/27/18 08/03/21 History prochlorperazine maleate 5 mg 5 mg PO TID PRN 06/18/21 08/03/21 History tablet (Compazine) olanzapine 2.5 mg tablet 2.5 mg PO HS 08/03/21 08/03/21 History oxycodone 5 mg tablet 5 mg PO .EVERY 4-6 HOURS PRN 08/03/21 08/03/21 History pantoprazole 40 mg tablet,delayed 40 mg PO QAM 08/03/21 08/03/21 History release prednisone 20 mg tablet 20 mg PO DAILY 08/03/21 08/03/21 History Patient History Medical History Anxiety CKD (chronic kidney disease), stage III Degenerative disc disease Diabetes mellitus, type 2 History of anesthesia reaction difficulty waking after cataract surgery Hyperlipidemia Hypertension Metastatic disease ovarian cancer with 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 Treated with systemic chemotherapy. Continued surveillance and finding of lymphadenopathy/nodule of the pelvis February 23, 2018 Status post fine-needle aspiration April 18, 2018 revealing metastatic adenocarcinoma consistent with ovarian origin. Status post completion of stereotactic body radiation therapy June 04, 2018. 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 Treated with systemic chemotherapy. Continued surveillance and finding of lymphadenopathy/nodule of the pelvis February 23, 2018 Status post fine-needle aspiration April 18, 2018 revealing metastatic adenocarcinoma consistent with ovarian origin." Surgical History History of bilateral cataract extraction History of cholecystectomy History of esophagogastroduodenoscopy (EGD) History of tonsillectomy and adenoidectomy History of tooth extraction wisdom teeth History of total abdominal hysterectomy and bilateral salpingo-oophorectomy 2014 Hx of inguinal hernia repair unsure which side Family History Grandmother Family history of diabetes mellitus maternal Social History Smoking Status: Former smoker Smoking End Date: quit 20 years ago; Second Hand Exposure: Yes (parents smoked); Hx Alcohol Use: No Hx Substance Use: No Preferred Language: Surinamese Communication Ability: Effective Yarn Finisher Required: No Beliefs That Will Affect Care: None Current Living Situation: Alone Other Information That Helps Us Care for You: No Feels Safe at Home: Yes Safety Concerns: Feels Safe At This Time Assistive Devices: None Review of Systems Review of Systems: All systems reviewed & are unremarkable except as noted in HPI & below Physical Exam Constitutional: cooperative and comfortable Eyes: PERRL, conjunctivae normal, anicteric sclerae ENMT: external ear and nose normal, oropharynx normal Neck: trachea midline, no thyromegaly Respiratory: normal respiratory effort, lungs clear to auscultation Cardiovascular: RRR, no murmur, no edema Rate/Rhythm: + tachycardic Heart Sounds: normal S1 and normal S2 Extremities: normal capillary refill and + edema (+1 edema bilateral lower extremities) Gastrointestinal (Abdomen): normal bowel sounds, soft, nontender, no hepatosplenomegaly Musculoskeletal: no cyanosis or clubbing, extremities motor strength 5/5 Skin: no rashes, warm and dry Neurologic: PERRL, EOMI, accommodation nl, no face palsy, no dysarthria Psychiatric: A+Ox3, euthymic affect Results & Data Results & Data ([facility]) Vital Signs (Past 12 Hours) Vital Signs Temp Pulse Pulse Resp BP BP Pulse Ox 08/03/21 18:31 100 H 08/03/21 18:29 36.6 C 100 H 14 131/90 96 08/03/21 18:00 101 H 19 131/72 97 08/03/21 17:56 99 H 18 106/74 99 08/03/21 17:30 99 H 18 106/74 99 08/03/21 17:00 105 H 18 166/87 H 96 08/03/21 16:30 98 H 19 136/85 97 08/03/21 16:00 111 H 20 134/87 100 08/03/21 15:30 102 H 22 124/75 97 08/03/21 15:00 107 H 17 112/93 96 08/03/21 14:33 108 H 20 93 08/03/21 14:02 36.4 C L 108 H 20 106/71 93 Coding Level of Care Code 41510 Inpt Consult Level 3 Diagnoses Chronic anemia D64.9 DVT prophylaxis Z29.9 CKD (chronic kidney disease), stage III N18.30 Diabetes mellitus, type 2 E11.9 Metastatic disease C79.9 Acute saddle pulmonary embolism I26.02 Acute cor pulmonale presence: with acute cor pulmonale (1) Acute saddle pulmonary embolism Acute cor pulmonale presence: with acute cor pulmonale Qualified Code(s): I26.02 - Saddle embolus of pulmonary artery with acute cor pulmonale
--- NOTE | 2021-08-03 20:59 | Ultrasound Report ---
BILATERAL LOWER EXTREMITY VENOUS DOPPLER HISTORY: Acute pain and swelling of the lower legs PE, right leg swelling COMPARISON STUDY: None. FINDINGS: Occlusive and partially occlusive thrombus is noted within the proximal aspect of the right superfici al femoral vein extending into the deep veins of the calf, likely acute. Nonocclusive thrombus in the left popliteal vein extends the posterior tibial vein. IMPRESSION: 1. Occlusive and partially occlusive likely acute deep venous thrombus of the right lower extremity. 2. Nonocclusive thrombi of the left lower extremity, possibly chronic. ACT 112: Negative or not required by law. Electronically signed by: Mariano Hurd M.D. 08/03/2021 8:58 PM
[2021-08-03] MEDS: OLANZAPINE 2.5 MG TAB PO SCH (21:01)
[2021-08-03] MEDS: SIMVASTATIN 20 MG TAB PO SCH (21:02)
[2021-08-03] MEDS: ZOLPIDEM TARTRATE 10 MG TAB PO SCH (21:02)
[2021-08-03 22:08] LABS: Partial Thromboplastin Ratio 4.2
[2021-08-03 22:11] LABS: Partial Thromboplastin Time 109.4 Seconds (21.0-31.0)
[2021-08-03] MEDS ORDERED: HEPARIN 100 UNIT/ML 5ML FLUSH FLUSH PRN (22:43)
[2021-08-04] MEDS ORDERED: SIMETHICONE 40 MG/0.6 ML 30ML PO PRN (00:35)
[2021-08-04 04:42] LABS: Hematocrit (blood only) 29.4 % (37-47); Hemoglobin 9.6 g/dL (12.0-16.0); Mean Corpuscular Hemoglobin 35.4 pg (25-34); Mean Corpuscular Hgb Conc 32.7 g/dL (32-36); Mean Corpuscular Volume 108.5 fL (80-100); Mean Platelet Volume 9.8 fL (7.4-10.4); Platelet Count 147 K/uL (130-400); RDW Coefficient of Variation 20.3 % (11.5-14.5); RDW Standard Deviation 80.6 fL (36.4-46.3); Red Blood Count 2.71 M/uL (4.2-5.4); White Blood Count 5.24 K/uL (4.8-10.8)
[2021-08-04 04:59] LABS: BUN Creatinine Ratio 28.5 (10-20); Calcium 8.1 mg/dl (8.5-10.1); Creatinine Clr Calc Pharmacy 47.7 ml/min; Est GFR (African American) 54.2 ml/min; Est GFR (Non-African American) 46.7 ml/min; Potassium 4.2 mmol/L (3.5-5.1)
[2021-08-04 05:05] LABS: Partial Thromboplastin Ratio 2.3
[2021-08-04 05:19] LABS: Partial Thromboplastin Time 59.4 Seconds (21.0-31.0)
--- NOTE | 2021-08-04 05:27 | Electrocardiogram Report ---
Test Reason : Blood Pressure : / mmHG Vent. Rate : 102 BPM Atrial Rate : 102 BPM P-R Int : 144 ms QRS Dur : 080 ms QT Int : 334 ms P-R-T Axes : 093 055 045 degrees QTc Int : 435 ms Sinus tachycardia Low voltage QRS Nonspecific T wave abnormality Abnormal ECG No previous ECGs available Confirmed by Jorden Armstrong ([id number]) on 08/04/2021 5:27:09 AM Referred By: ED Confirmed By:Jorden Armstrong
[2021-08-04 05:30] LABS: Magnesium 1.5 mg/dl (1.8-2.4); Phosphorus 3.9 mg/dl (2.5-4.9)
[2021-08-04 06:11] LABS: Basophils # (auto) 0.01 K/uL (0-0.2); Basophils % (auto) 0.2 %; Eosinophils # (auto) 0.07 K/uL (0-0.5); Eosinophils % (auto) 1.3 %; Immature Granulocytes # (auto) 0.01 K/uL (0.00-0.02); Immature Granulocytes % (auto) 0.2 %; Lymphocytes # (auto) 1.08 K/uL (1.2-3.4); Lymphocytes % (auto) 20.1 %; Monocytes # (auto) 0.51 K/uL (0.11-0.59); Monocytes % (auto) 9.5 %; Neutrophils # (auto) 3.68 K/uL (1.4-6.5); Neutrophils % (auto) 68.7 %
[2021-08-04 06:41] LABS: Anisocytosis Present
[2021-08-04] MEDS: SODIUM CHLORIDE 0.9% 1000ML 1,000 ML IV SCH (07:23)
[2021-08-04] MEDS: INSULIN ASPART 100 UNITS/ML 3 ML PEN SC SCH ×4 (09:20→21:39)
[2021-08-04] MEDS: PANTOprazole 40 MG TAB PO SCH (09:20)
--- NOTE | 2021-08-04 11:38 | Critical Care Progress Note ---
Date of Service August 04, 2021 Assessment & Plan (1) Acute saddle pulmonary embolism: Plan: Impression: 65-year-old female with metastatic ovarian cancer presents to the ICU following discovery of acute saddle PE and currently on heparin drip. Neuro - [facility] ICU: Negative Anxietycontinue Zyprexa Cardiac - HTNcontinue home meds. Respiratory - Acute saddle PECT chest showed extensive bilateral pulmonary emboli including a saddle embolus with mild right heart strain, small right lower lobe pulmonary infarct. Interval progression of metastatic disease within the chest abdomen pelvis was also noted -TTE without evidence of cor pulmonale and troponin negative, hemodynamically stable, no current indication for lysis -Continue with heparin drip for now -No current respiratory distress -Continuous monitoring on pulse ox GI - Diabetic diet Continue PPI RENAL/LYTES - ANNIE resolved. - Strict I's and O's ENDO - DM type IIhold Metformin favor of sliding scale -ICU hyperglycemic protocol HEME - H&H stable, monitor routine CBCs. Followed by oncology for history of ovarian cancer. Recommend palliative care consultation. ID - No indication for infectious process at this time LINES/IV ACCESS - Peripheral IVs DVT PROPHYLAXIS - SCDs, heparin drip Patient stable for transfer to med telemetry. (2) Chronic anemia: (3) DVT prophylaxis: (4) CKD (chronic kidney disease), stage III: (5) Diabetes mellitus, type 2: (6) Metastatic disease: Admission and Anticipated Discharge Date Admission Date: August 03, 2021 Subjective Patient seen and examined at bedside. No significant overnight events. Hemodynamically stable on room air. Review of Systems Review of Systems: All systems reviewed & are unremarkable except as noted in HPI & below Physical Exam Constitutional: cooperative and comfortable Eyes: PERRL, conjunctivae normal, anicteric sclerae ENMT: external ear and nose normal, oropharynx normal Neck: trachea midline, no thyromegaly Respiratory: normal respiratory effort, lungs clear to auscultation Cardiovascular: RRR, no murmur, no edema Rate/Rhythm: + tachycardic Heart Sounds: normal S1 and normal S2 Extremities: normal capillary refill and + edema (+1 edema bilateral lower extremities) Gastrointestinal (Abdomen): normal bowel sounds, soft, nontender, no hepatosplenomegaly Musculoskeletal: no cyanosis or clubbing, extremities motor strength 5/5 Skin: no rashes, warm and dry Neurologic: PERRL, EOMI, accommodation nl, no face palsy, no dysarthria Psychiatric: A+Ox3, euthymic affect Results & Data Results & Data ([facility]) Vital Signs (Past 12 Hours) Vital Signs Temp Pulse Resp BP Pulse Ox 08/04/21 05:00 89 20 112/81 95 08/04/21 04:00 98.1 F 92 H 21 121/85 95 08/04/21 03:00 92 H 25 H 97/72 L 92 08/04/21 02:00 98.1 F 95 H 25 H 111/75 91 08/04/21 01:00 96 H 26 H 91/66 L 91 08/04/21 00:00 99 H 25 H 103/70 91 Coding Level of Care Code 83590 Subseq Hosp Care Lvl 2 Diagnoses Acute saddle pulmonary embolism I26.02 Acute cor pulmonale presence: with acute cor pulmonale Chronic anemia D64.9 DVT prophylaxis Z29.9 CKD (chronic kidney disease), stage III N18.30 Diabetes mellitus, type 2 E11.9 Metastatic disease C79.9 (1) Acute saddle pulmonary embolism Acute cor pulmonale presence: with acute cor pulmonale Qualified Code(s): I26.02 - Saddle embolus of pulmonary artery with acute cor pulmonale
[2021-08-04] MEDS: MAGNESIUM SULFATE / D5W 1 GM/100 ML BAG IV SCH ×2 (11:44→13:32)
[2021-08-04] MEDS: PROMETHAZINE HCL 12.5 MG in SODIUM CHLORIDE 0.9% 50 ML IV PRN ×2 (12:37→22:55)
[2021-08-04] MEDS: HEPARIN SODIUM/DEXTROSE 25,000 UNITS/500 ML BAG IV SCH (17:09)
--- NOTE | 2021-08-04 17:14 | Hospitalist Progress Note ---
Date of Service August 04, 2021 delayed entry date of service noted above Assessment & Plan (1) Acute saddle pulmonary embolism: Plan: per SHARITA Rojas's notes with addendum: -Admit to ICU -Patient presenting by referral of outpatient oncologist after scheduled CT chest/ABD/pelvis showed acute saddle pulmonary embolism with mild right heart strain -In the ED, patient is hemodynamically stable and saturating well on room air -IV heparin has been started 08/04 stable overall BP and respiratory status stable echo: no pulmonary hypertension, RV function normal continue IV heparin Oncologist consulted Dysphagia to solids - Speech therapist consulted - for Barium swallow and VFS tomorrow clear liquids for now (2) Ovarian ca: (3) Metastatic disease: Plan: -Initial diagnosis in 2013 -Current treatment plan is p.o. Votrient -however on hold due to recent fatigue -Follows with Dr. Weinberg and Misti Zamorano PA-C -Unfortunately CT shows progression of disease (4) Diabetes mellitus, type 2: Plan: -Hgb A1c 5.4 03/2021 -Hold oral agents, NovoLog per protocol while hospitalized (5) CKD (chronic kidney disease), stage III: Plan: -Baseline creatinine runs in the low 1's -Creatinine 1.5 on admission crea back to baseline after IV fluids (6) DVT prophylaxis: Plan: -On IV heparin as above Admission and Anticipated Discharge Date Admission Date: August 03, 2021 Subjective ff up for saddle PE, etc seen resting in bed, sitting up, not in distress states she feels improved less dyspnea, no chest pain, dizziness, palpitations no bleeding reports dysphagia to solids for weeks now also had some nausea today no other symptoms Review of Systems Review of Systems: all noted and negative except for above Physical Exam Physical Exam: General- oriented x 3, not in distress, speaks in sentences with no effort or accessory muscle use Head- atraumatic Eyes- PERRL, EOMI, anicteric ENT- oropharynx clear Neck- supple, no JVD, no adenopathy, no thyromegaly; carotids +2/2, no bruits appreciated Lungs- clear to auscultation bilaterally, no rales/wheezes Heart- normal rate, regular rhythm; no murmur, no gallop, no rub appreciated Abdomen- normal bowel sounds, nondistended, soft, nontender, no masses or hepatosplenomegaly Extremities- no pretibial edema, no calf tenderness; peripheral pulses intact Neuro- alert, oriented x 3; CN 2-12 grossly intact; motor 5/5 bilaterally;sensation 100% on all extremities; no other gross focal neurologic deficits Skin- warm & dry Results & Data Results & Data ([facility]) Vital Signs (Past 12 Hours) Vital Signs Pulse Resp BP Pulse Ox 08/04/21 14:00 110 H 26 H 96 08/04/21 13:00 110 H 39 H 97 08/04/21 12:00 114 H 23 115/84 96 08/04/21 11:00 102 H 30 H 115/73 96 08/04/21 10:00 100 H 26 H 107/77 96 08/04/21 09:00 93 H 24 124/79 96 08/04/21 08:00 92 H 44 H 111/77 95 08/04/21 07:00 93 H 15 125/77 94 08/04/21 06:00 92 H 28 H 94 all noted and reviewed including below (1) Ovarian ca Laterality: unspecified laterality Qualified Code(s): C56.9 - Malignant neoplasm of unspecified ovary (2) Acute saddle pulmonary embolism Acute cor pulmonale presence: with acute cor pulmonale Qualified Code(s): I26.02 - Saddle embolus of pulmonary artery with acute cor pulmonale
--- NOTE | 2021-08-04 18:16 | Consultation Report ---
CONSULTATION FOR HEMATOLOGY DATE OF SERVICE: 08/04/2021 REASON FOR CONSULT: PE in the setting of metastatic ovarian cancer. HISTORY OF PRESENT ILLNESS: Ms. Hoskins is a pleasant 65-year-old female with history of metastatic ovarian cancer for which she has received multiple therapies. She was initially diagnosed with stage IIIC ovarian cancer in 2013, for which she is status post cytoreductive surgery on 06/19/2014. This was followed by adjuvant IV/IP cisplatin/Taxol for 6 cycles, which she completed in 10/2014. In 07/2016, she was found to have metastatic disease, for which she resumed systemic therapy with carboplatin/paclitaxel with great response to treatment. She unfortunately recurred in 02/2018 in the pelvic cul-de-sac and received SBRT completed in 05/2018. Since then, she has had multiple recurrences, for which she was treated with carboplatin/Doxil followed by maintenance rucaparib and more recently Votrient. Recently, developed multiple symptoms including dyspnea on exertion, weight loss, poor appetite and lower extremity swelling, thought to possibly be due to chemotherapy related side effects and so Votrient was discontinued. CT chest, abdomen and pelvis was ordered for restaging, which was performed yesterday. CT scan revealed extensive bilateral PE including a saddle embolus with mild right heart strain, interval development of small bilateral pleural effusions, progression of the metastatic disease in her chest, abdomen and pelvis, small right lower lobe pulmonary infarct and interval development of mild right hydronephrosis to the level of the ureteropelvic junction. Given the findings of saddle embolus, she was called by oncology to present to the ED where she was started on therapeutic UFH.. During my evaluation of patient today, she complains of dyspnea on exertion, which started about 1 month ago. Also, complains of lower extremity swelling, worse on the right side, which also started around the same time. She also endorses poor appetite and more than 20 pounds weight loss over the past 1 month as well as occasional diarrhea. Denies chest pain, abdominal pain, fever, chills, headaches, dizziness, or any other symptoms. PAST MEDICAL HISTORY: CKD stage III, diabetes mellitus type 2, hyperlipidemia, hypertension, metastatic ovarian cancer, history of DVT/PE. PAST SURGICAL HISTORY: History of cholecystectomy, tonsillectomy and adenoidectomy, NATHANAEL/BSO. MEDICATIONS PRIOR TO ADMISSION: 1. Lisinopril 10 mg p.o. daily. 2. Lorazepam 0.5 mg t.i.d. p.r.n. 3. Metformin 1000 mg p.o. b.i.d. 4. Multivitamin 1 tab p.o. daily. 5. Simvastatin 20 mg p.o. daily. 6. Zolpidem 10 mg p.o. at night. 7. Compazine 5 mg p.o. t.i.d. p.r.n. 8. Olanzapine 2.5 mg as needed for nausea. 9. Oxycodone 5 mg p.o. every 4-6 hours as needed for pain. 10. Pantoprazole 40 mg p.o. daily. 11. Prednisone 20 mg p.o. daily. ALLERGIES: No known drug allergies. SOCIAL HISTORY: Former smoker. Quit smoking about 20 years ago. Denies alcohol or illicit drug use. FAMILY HISTORY: Nonsignificant. REVIEW OF SYSTEMS: CONSTITUTIONAL: Endorses fatigue and weight loss. Denies fever or chills. EYES: Negative for change in vision. ENT: Negative for epistaxis, sore throat or nasal discharge. CARDIOVASCULAR: Denies chest pain, palpitations, dizziness, or diaphoresis. RESPIRATORY: Endorses dyspnea on exertion. Denies hemoptysis or cough. GASTROINTESTINAL: Endorses diarrhea and nausea. Denies vomiting. SKIN: Denies rash. GENITOURINARY: Denies urinary frequency, urgency, hematuria or dysuria. NEUROLOGIC: Denies headaches, dizziness, seizure activity or weakness. LYMPHATICS/HEMATOLOGIC: Denies abnormal bleeding or new adenopathy. MUSCULOSKELETAL: Denies any new joint pain or back pain. PHYSICAL EXAMINATION: VITAL SIGNS: Blood pressure 112/81, heart rate 89, respiratory rate 20, saturation on room air 95%. CONSTITUTIONAL: Appears comfortable, in no obvious painful or respiratory distress. EYES: Conjunctivae normal, anicteric. ENT: External exam negative for masses. NECK: Negative for masses or adenopathy. RESPIRATORY: Lung sounds were generally clear bilaterally. CARDIOVASCULAR: Heart was regular rate and rhythm without significant murmur, gallops or rubs. GASTROINTESTINAL: Normal bowel sounds. Soft, nontender with no palpable hepatosplenomegaly. LYMPHATIC SYSTEM: There was no palpable peripheral lymphadenopathy. EXTREMITIES: Mild bilateral pitting edema. LABORATORY STUDIES: Significant for normal white count of 5.24 with hemoglobin of 9.6, MCV of 108.5, and platelet count was within normal limits at 145. IMAGING STUDIES: CT chest, abdomen and pelvis on 08/03/2021 1. Extensive bilateral pulmonary emboli including a saddle embolus with mild right heart strain. 2. Interval development of small bilateral pleural effusions. 3. Interval progression of the metastatic disease within the chest, abdomen and pelvis as described above. 4. Interval development of mild right hydronephrosis to the level of the ureteropelvic junction. 5. A small right lower lobe pulmonary infarct. Venous Doppler study performed on 08/03/2021 1. Occlusive and partially occlusive likely acute deep vein thrombus of the right lower extremity. 2. Nonocclusive thrombi of the left lower extremity, possibly chronic. IMPRESSION: 1. Bilateral pulmonary emboli with saddle embolus. 2. Metastatic ovarian carcinoma with disease progression following multiple lines of treatment. 3. Acute right lower extremity deep venous thrombosis and chronic left lower extremity deep venous thrombosis. PLAN: Appreciate great care by ICU team. Would recommend continuing with therapeutic unfractionated heparin drip for another 24 hours and if she remains hemodynamically stable, can switch to therapeutic low-molecular weight heparin/Lovenox weight-based dosing, which I would recommend she continues for at least 1 month prior to considering possibility of switching to DOAC, such as apixaban or rivaroxaban, most especially given large clot burden noted on imaging. Regarding her ovarian cancer, which appears to have progressed on Votrient, we will plan to see the patient back in oncology clinic next week to discuss starting next line of systemic therapy . Thank you for this consult. Job ID: [id number] [facility]ORTH HOSPITALDenise
[2021-08-04] MEDS: ZOLPIDEM TARTRATE 10 MG TAB PO SCH (21:32)
[2021-08-04] MEDS: SIMVASTATIN 20 MG TAB PO SCH (21:32)
[2021-08-04] MEDS: OLANZAPINE 2.5 MG TAB PO SCH (21:32)
[2021-08-05 06:32] LABS: Partial Thromboplastin Ratio 2.4
[2021-08-05 07:03] LABS: Partial Thromboplastin Time 64.3 Seconds (21.0-31.0)
[2021-08-05] MEDS: PANTOprazole 40 MG TAB PO SCH (08:24)
[2021-08-05] MEDS: INSULIN ASPART 100 UNITS/ML 3 ML PEN SC SCH ×4 (08:24→20:07)
[2021-08-05 10:18] LABS: Basophils # (auto) 0.01 K/uL (0-0.2); Basophils % (auto) 0.2 %; Eosinophils # (auto) 0.05 K/uL (0-0.5); Eosinophils % (auto) 0.9 %; Hematocrit (blood only) 29.5 % (37-47); Hemoglobin 9.6 g/dL (12.0-16.0); Immature Granulocytes # (auto) 0.02 K/uL (0.00-0.02); Immature Granulocytes % (auto) 0.4 %; Lymphocytes # (auto) 0.96 K/uL (1.2-3.4); Lymphocytes % (auto) 17.2 %; Mean Corpuscular Hemoglobin 35.4 pg (25-34); Mean Corpuscular Hgb Conc 32.5 g/dL (32-36); Mean Corpuscular Volume 108.9 fL (80-100); Mean Platelet Volume 9.7 fL (7.4-10.4); Monocytes # (auto) 0.55 K/uL (0.11-0.59); Monocytes % (auto) 9.9 %; Neutrophils # (auto) 3.99 K/uL (1.4-6.5); Neutrophils % (auto) 71.4 %; Platelet Count 163 K/uL (130-400); RDW Coefficient of Variation 20.2 % (11.5-14.5); RDW Standard Deviation 80.4 fL (36.4-46.3); Red Blood Count 2.71 M/uL (4.2-5.4); White Blood Count 5.58 K/uL (4.8-10.8)
[2021-08-05 10:22] LABS: BUN Creatinine Ratio 26.9 (10-20); Calcium 7.9 mg/dl (8.5-10.1); Creatinine Clr Calc Pharmacy 49.7 ml/min; Est GFR (Non-African American) 49.2 ml/min
[2021-08-05 10:38] LABS: Macrocytosis Present; Ovalocytes 1+
--- NOTE | 2021-08-05 12:37 | Hospitalist Progress Note ---
Date of Service August 05, 2021 Assessment & Plan (1) Acute saddle pulmonary embolism: Plan: per SHARITA Rojas's notes with addendum: -Admit to ICU -Patient presenting by referral of outpatient oncologist after scheduled CT chest/ABD/pelvis showed acute saddle pulmonary embolism with mild right heart strain -In the ED, patient is hemodynamically stable and saturating well on room air -IV heparin has been started 08/05 remains stable overall BP and respiratory status stable echo: no pulmonary hypertension, RV function normal Oncologist Dr. Rose recommends to transition to Lovenox BID x 1 month, then NOACs as outpatient Dysphagia to solids - Speech therapist consulted - for Barium swallow and VFS clear liquids for now (2) Ovarian ca: (3) Metastatic disease: Plan: -Initial diagnosis in 2013 -Current treatment plan is p.o. Votrient -however on hold due to recent fatigue -Follows with Dr. Weinberg and Misti Zamorano PA-C -Unfortunately CT shows progression of disease (4) Diabetes mellitus, type 2: Plan: -Hgb A1c 5.4 03/2021 -Hold oral agents, NovoLog per protocol while hospitalized (5) CKD (chronic kidney disease), stage III: Plan: -Baseline creatinine runs in the low 1's -Creatinine 1.5 on admission crea back to baseline after IV fluids (6) DVT prophylaxis: Plan: -On IV heparin as above Admission and Anticipated Discharge Date Admission Date: August 03, 2021 Subjective ff up for saddle PE, etc seen resting in bed, sitting up in good spirits states she continues to feel better no chest pain, dyspnea, palpitations, dizziness no bleeding tolerating clear liquids well no other symptoms Review of Systems Review of Systems: all noted and negative except for above Physical Exam Physical Exam: General- oriented x 3, not in distress, speaks in sentences with no effort or accessory muscle use Eyes- anicteric Neck- no JVD Lungs- clear breath sounds bilaterally, no rales/wheezes Heart- normal rate, regular rhythm; no murmurs Abdomen- normal bowel sounds, nondistended, soft, nontender Extremities- no pretibial edema, no calf tenderness Neuro- alert, oriented x 3; no gross focal neurologic deficits Skin- warm & dry Results & Data Results & Data ([facility]) Vital Signs (Past 12 Hours) Vital Signs Temp Pulse Resp BP Pulse Ox 08/05/21 11:22 36.5 C 103 H 17 127/85 94 08/05/21 07:13 36.6 C 92 H 18 119/79 95 08/05/21 03:32 36.7 C 91 H 22 112/70 94 all noted and reviewed including below (1) Acute saddle pulmonary embolism Acute cor pulmonale presence: with acute cor pulmonale Qualified Code(s): I26.02 - Saddle embolus of pulmonary artery with acute cor pulmonale (2) Ovarian ca Laterality: unspecified laterality Qualified Code(s): C56.9 - Malignant neoplasm of unspecified ovary
[2021-08-05] MEDS: ENOXAPARIN 80 MG/0.8 ML SYR SQ SCH ×2 (13:32→20:07)
--- NOTE | 2021-08-05 14:05 | Fluoroscopy Report ---
FL barium swallow CLINICAL HISTORY: globus sensation with solids x few weeks TECHNIQUE: The patient was observed drinking thick and thin barium under fluoroscopic observation in both the upright and recumbent positions. Total fluoroscopy time: 1.5 minutes. COMPARISON: None available at the time of this dictation. FINDINGS: The patient had no problem initiating the swallowing mechanism. There was no evidence of aspiration. Dysmotility was seen with incomplete clearance of esophageal contents. There was no evidence of strictures, filling defects, or outpouchings. Contrast flowed readily from t he esophagus into the stomach. No hiatal hernia was identified. There was no evidence of gastroesopha geal reflux. The patient was unable to swallow a 13 mm barium pill. IMPRESSION: Dysphagia is seen with incomplete clearance of contrast from the esophagus. The patient did not attem pt swallowing the pill. ACT 112: Negative or not required by law. Electronically signed by: Roberto Carlos Sutherland M.D. 08/05/2021 2:03 PM
[2021-08-05] MEDS: ONDANSETRON INJ 2 MG/ML 2 ML VIAL IV PRN (19:19)
[2021-08-05] MEDS: ZOLPIDEM TARTRATE 10 MG TAB PO SCH (20:06)
[2021-08-05] MEDS: SIMVASTATIN 20 MG TAB PO SCH (20:06)
[2021-08-05] MEDS: OLANZAPINE 2.5 MG TAB PO SCH (20:06)
[2021-08-06] MEDS: PROMETHAZINE HCL 12.5 MG in SODIUM CHLORIDE 0.9% 50 ML IV PRN ×3 (01:46→20:13)
[2021-08-06 07:31] LABS: Basophils # (auto) 0.01 K/uL (0-0.2); Basophils % (auto) 0.2 %; Eosinophils # (auto) 0.03 K/uL (0-0.5); Eosinophils % (auto) 0.6 %; Hematocrit (blood only) 28.2 % (37-47); Hemoglobin 9.2 g/dL (12.0-16.0); Immature Granulocytes # (auto) 0.01 K/uL (0.00-0.02); Immature Granulocytes % (auto) 0.2 %; Lymphocytes # (auto) 0.73 K/uL (1.2-3.4); Lymphocytes % (auto) 14.3 %; Mean Corpuscular Hemoglobin 35.1 pg (25-34); Mean Corpuscular Hgb Conc 32.6 g/dL (32-36); Mean Corpuscular Volume 107.6 fL (80-100); Mean Platelet Volume 9.6 fL (7.4-10.4); Monocytes # (auto) 0.42 K/uL (0.11-0.59); Monocytes % (auto) 8.2 %; Neutrophils % (auto) 76.5 %; Platelet Count 174 K/uL (130-400); RDW Coefficient of Variation 19.9 % (11.5-14.5); RDW Standard Deviation 78.1 fL (36.4-46.3); Red Blood Count 2.62 M/uL (4.2-5.4)
[2021-08-06] MEDS: ONDANSETRON INJ 2 MG/ML 2 ML VIAL IV PRN (07:41)
[2021-08-06 07:56] LABS: BUN Creatinine Ratio 24.2 (10-20); Calcium 8.4 mg/dl (8.5-10.1); Est GFR (African American) 46.6 ml/min; Est GFR (Non-African American) 40.2 ml/min; Magnesium 1.9 mg/dl (1.8-2.4); Potassium 3.9 mmol/L (3.5-5.1)
[2021-08-06 08:17] LABS: Partial Thromboplastin Ratio 1.2; Partial Thromboplastin Time 32.6 Seconds (21.0-31.0)
[2021-08-06] MEDS: INSULIN ASPART 100 UNITS/ML 3 ML PEN SC SCH ×4 (08:20→21:00)
[2021-08-06] MEDS: SODIUM CHLORIDE 0.9% 1000ML 1,000 ML IV SCH ×2 (08:32→20:15)
[2021-08-06] MEDS: PANTOprazole 40 MG TAB PO SCH (08:32)
[2021-08-06] MEDS: ENOXAPARIN 80 MG/0.8 ML SYR SQ SCH ×2 (08:33→20:59)
--- NOTE | 2021-08-06 12:37 | Progress Notes ---
HEMATOLOGY FOLLOWUP NOTE DATE OF SERVICE: 08/06/2021 DIAGNOSES: 1. Bilateral pulmonary emboli with saddle embolus. 2. Metastatic ovarian cancer with disease progression following multiple lines of therapy. 3. Acute right lower extremity deep venous thrombosis and chronic left lower extremity deep venous thrombosis. SUBJECTIVE: Ania states that her shortness of breath has significantly improved. She is currently on therapeutic low-molecular heparin with Lovenox 80 mg subcutaneously b.i.d. She complains of difficulty swallowing, which started several weeks ago. States that difficulty swallowing is with both solids and liquids. Also, endorses one episode of diarrhea today. She had barium swallow performed yesterday, which revealed dysphagia with incomplete clearance of contrast from the esophagus. She otherwise denies chest pain, abdominal pain, fever, chills, or any other symptoms. OBJECTIVE: GENERAL: A middle-aged lady sitting up in bed, in no obvious respiratory or painful distress. VITAL SIGNS: Temperature 36.7 degrees Celsius, pulse rate 101, respiratory rate 20, pulse oximetry on room air 94%, blood pressure 118/73. LABORATORY DATA: White cell count 5, hemoglobin 9.2, platelet count 174,000. BUN 33 and creatinine 1.36. RADIOGRAPHIC DATA: Barium swallow performed on 08/05/2021 revealed dysphagia with incomplete clearance of contrast from the esophagus. The patient did not attempt swallowing the pill. CT chest, abdomen and pelvis performed on 08/03/2021 revealed thickening of the distal esophagus near the GE junction consistent with serosal deposits of metastatic disease along with extensive bilateral PE including saddle embolus with mild right heart strain, disease progression in the chest, abdomen and pelvis as well as Interval development of small bilateral pleural effusions. IMPRESSION: 1. Dysphagia. 2. Extensive bilateral pulmonary emboli with saddle embolus. 3. Bilateral deep venous thrombosis. 4. Metastatic ovarian carcinoma with disease progression. PLAN: Suspect that her dysphagia is possibly due to GE junction narrowing from serosal deposit of metastatic disease. Would recommend evaluation by gastroenterology as she will probably need EGD with biopsy as well as possible stent placement /dilation depending on EGD findings. Otherwise, recommend continuing therapeutic Lovenox as mentioned in the initial consult note for at least 1 month, after which we will consider switching to a NOAC as an outpatient. She is scheduled to see me next week to start single agent paclitaxel given evidence of disease progression on recent scan. Thank you. Please feel free to call if you have any further questions. Job ID: [id number] FERNANDO
--- NOTE | 2021-08-06 14:20 | Hospitalist Progress Note ---
Date of Service August 06, 2021 Assessment & Plan (1) Acute saddle pulmonary embolism: Plan: Acute Saddle Pulmonary Embolism per SHARITA Rojas's notes with addendum: -Admit to ICU -Patient presenting by referral of outpatient oncologist after scheduled CT chest/ABD/pelvis showed acute saddle pulmonary embolism with mild right heart strain -In the ED, patient is hemodynamically stable and saturating well on room air -IV heparin has been started 08/06 remains stable overall BP and respiratory status stable no hypoxia, even with ambulation echo: no pulmonary hypertension, RV function normal Oncologist Dr. Rose recommends to transition to Lovenox BID x 1 month, then NOACs as outpatient tolerating Lovenox now Dysphagia to solids - Ba swallow: Dysphagia is seen with incomplete clearance of contrast from the esophagus. The patient did not attempt swallowing the pill. - Speech Eval: Esoph dysmotility - on regular diet did not tolerate solids or liquids today - CT abd/pelv: Thickening of the distal esophagus near the gastroesophageal junction consistent with a serosal deposit of metastatic disease. - will consult GI, discussed with LAUREN Calvin NPO for now (2) Ovarian ca: (3) Metastatic disease: Plan: -Initial diagnosis in 2013 -Current treatment plan is p.o. Votrient -however on hold due to recent fatigue -Follows with Dr. Weinberg and Misti Zamorano PA-C -Unfortunately CT shows progression of disease (4) Diabetes mellitus, type 2: Plan: -Hgb A1c 5.4 03/2021 -Hold oral agents, NovoLog per protocol while hospitalized (5) CKD (chronic kidney disease), stage III: Plan: -Baseline creatinine runs in the low 1's -Creatinine 1.5 on admission - crea 1.3 IV NSS ordered (6) DVT prophylaxis: Plan: -On IV heparin as above Admission and Anticipated Discharge Date Admission Date: August 03, 2021 Subjective ff up for acute PE, dysphagia, etc seen resting in bed, comfortable not in distress however, unable to eat since this morning had 2 bites of egg for breakfast, but threw up after had 2-3 spoons of broth, then became nauseated no abdominal pain had 1 BM today, liquid no chest pain, dyspnea, palpitations, dizziness ambulated in the hallways, no hypoxia or any symptoms no other symptoms Review of Systems Review of Systems: all noted and negative except for above Physical Exam Physical Exam: General- oriented x 3, not in distress, speaks in sentences with no effort or accessory muscle use Eyes- anicteric Neck- no JVD Lungs- clear BS BL Heart- normal rate, regular rhythm; no murmurs Abdomen- normal bowel sounds, nondistended, soft, nontender Extremities- no pretibial edema, no calf tenderness Neuro- alert, oriented x 3; no gross focal neurologic deficits Skin- warm & dry Results & Data Results & Data ([facility]) Vital Signs (Past 12 Hours) Vital Signs Temp Pulse Pulse Pulse Pulse Resp Resp 08/06/21 11:57 36.7 C 101 H 20 08/06/21 10:37 129 H 119 H 105 H 26 H 08/06/21 07:31 36.6 C 90 18 08/06/21 03:38 36.6 C 96 H 17 Resp Resp BP Pulse Ox Pulse Ox Pulse Ox Pulse Ox 08/06/21 11:57 118/73 94 08/06/21 10:37 28 H 24 96 95 94 08/06/21 07:31 115/74 93 08/06/21 03:38 106/74 96 (1) Acute saddle pulmonary embolism Acute cor pulmonale presence: with acute cor pulmonale Qualified Code(s): I26.02 - Saddle embolus of pulmonary artery with acute cor pulmonale (2) Ovarian ca Laterality: unspecified laterality Qualified Code(s): C56.9 - Malignant neoplasm of unspecified ovary
--- NOTE | 2021-08-06 15:56 | Gastrointestinal Consultation ---
Date of Consultation August 06, 2021 Assessment & Plan (1) Dysphagia: (2) Nausea & vomiting: (3) Metastatic disease: This is a 65 y/o female with h/o metastatic ovarian cancer admitted w/ acute saddle PE, GI consulted for dysphagia to solids/liquids, n/v; consider EGD/ ? stent. Barium swallow indicated incomplete clearance of contrast from the esophagus. CT imaging concerning for distal esophageal thickening near the GE; ? serosal mets vs esophagitis. Her symptoms by history seem intermittent as she was able to tolerate solid foods the other day but not today. On exam abd is soft; resting comfortably in bed. - Given her acute PE she would be considered high risk for anesthesia. - We will do trial of IV PPI bolus then gtt over the weekend to see if this improves her symptoms. If improved would continue PPI. If she does not improve will need to involve anesthesia and pulmonary input as to appropriateness/clearance/timing for possible EGD. - Can have clear liquids - Antiemetics PRN - Appreciate primary team mgmt of her co-morbids - Will re-evaluate her on Monday Thank you for allowing us to participate in the care of this patient. Please call with any acute changes, questions or concerns. Please see addendum below with additional recommendation from my supervising physician. Supervising Physician Co-Signing Physician Notes I performed a history and physical examination of the patient today, including specifically on physical exam - soft abdomen. I have discussed the patient's management with the advanced practitioner. Please refer to the nurse practitioner's note for the documented findings and plan of care. Dysphagia with CT scan showing thickened distal esophagus, DDx esophagitis Vs malignancy. Trial of IV PPI. If not improved then EGD on Monday. History of Present Illness Reason for Consultation: dysphagia, nausea/vomiting, ovarian CA Requesting Physician: Dr. Steinberg Attending Physician: Reyes Nunn MD History of Present Illness This is a 65 y/o female with h/o metastatic ovarian cancer dx'd 2013, DM, CKD, admitted with acute saddle pulmonary embolus, and GI asked to evaluate for dysphagia. Initially was on heparin now on Lovenox. She describes several weeks of intermittent symptoms of gagging, dysphagia to solids/liquids and nausea/vomiting. Symptoms can be intermittent; the other day tolerated roast beef and carrots; today she couldn't tolerate eggs and broth. Had barium swallow w/ incomplete clearance of contrast from the esophagus. CT indicated distal esophageal thickening near the GE junction c/w serosal deposit of mets; has progression of metastatic disease in the chest/abd/pelvis. Currently no n/v, abd pain. Having cough and SOB w/ PE. No melena, hematochezia, hematemesis. Having brown formed stool. Satting well on RA; slightly tachy pulse 101. Stable chronic anemia. Allergies Allergy/AdvReac Type Severity Reaction Status Date / Time No Known Allergies Allergy Verified 08/03/21 15:53 Home Medications Medication Instructions Recorded Confirmed Type lisinopril 10 mg tablet 10 mg PO QAM 08/27/18 08/03/21 History lorazepam 0.5 mg tablet 0.5 mg PO TID PRN 08/27/18 08/03/21 History metformin 500 mg tablet 1,000 mg PO BID 08/27/18 08/03/21 History multivitamin 1 tab PO QAM 08/27/18 08/03/21 History simvastatin 20 mg tablet 20 mg PO PM 08/27/18 08/03/21 History zolpidem 10 mg tablet 1 tab PO HS 08/27/18 08/03/21 History prochlorperazine maleate 5 mg 5 mg PO TID PRN 06/18/21 08/03/21 History tablet (Compazine) olanzapine 2.5 mg tablet 2.5 mg PO HS 08/03/21 08/03/21 History oxycodone 5 mg tablet 5 mg PO .EVERY 4-6 HOURS PRN 08/03/21 08/03/21 History pantoprazole 40 mg tablet,delayed 40 mg PO QAM 08/03/21 08/03/21 History release prednisone 20 mg tablet 20 mg PO DAILY 08/03/21 08/03/21 History enoxaparin 80 mg/0.8 mL 80 mg SUBCUT BID 30 Days #48 ml 08/05/21 Rx subcutaneous syringe (Lovenox) Patient History Medical History Anxiety CKD (chronic kidney disease), stage III Degenerative disc disease Diabetes mellitus, type 2 History of anesthesia reaction difficulty waking after cataract surgery Hyperlipidemia Hypertension Metastatic disease ovarian cancer with 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 Treated with systemic chemotherapy. Continued surveillance and finding of lymphadenopathy/nodule of the pelvis February 23, 2018 Status post fine-needle aspiration April 18, 2018 revealing metastatic adenocarcinoma consistent with ovarian origin. Status post completion of stereotactic body radiation therapy June 04, 2018. 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 Treated with systemic chemotherapy. Continued surveillance and finding of lymphadenopathy/nodule of the pelvis February 23, 2018 Status post fine-needle aspiration April 18, 2018 revealing metastatic adenocarcinoma consistent with ovarian origin." Surgical History History of bilateral cataract extraction History of cholecystectomy History of esophagogastroduodenoscopy (EGD) History of tonsillectomy and adenoidectomy History of tooth extraction wisdom teeth History of total abdominal hysterectomy and bilateral salpingo-oophorectomy 2013 Hx of inguinal hernia repair unsure which side Family History Grandmother Family history of diabetes mellitus maternal Social History Smoking Status: Former smoker Smoking End Date: quit 20 years ago; Second Hand Exposure: Yes (parents smoked); Hx Alcohol Use: No Hx Substance Use: No Preferred Language: Micronesian Communication Ability: Effective Certified Ophthalmic Surgical Assistant Required: No Beliefs That Will Affect Care: None marital status: Current Living Situation: Alone Other Information That Helps Us Care for You: No Feels Safe at Home: Yes Safety Concerns: Feels Safe At This Time Assistive Devices: Glasses Review of Systems Review of Systems: All systems reviewed & are unremarkable except as noted in Subjective Physical Exam Constitutional: WD/WN, vitals as above Eyes: sclera anicteric Cardiovascular: Rate/Rhythm: regular rhythm slightly tachycardic Gastrointestinal (Abdomen): normal bowel sounds, soft, nontender, no hepatosplenomegaly Skin: no rashes, warm and dry Psychiatric: A+Ox3, euthymic affect Results & Data ([facility]) Vital Signs (Past 12 Hours) Vital Signs Temp Pulse Pulse Pulse Pulse Resp Resp 08/06/21 15:45 36.4 C L 101 H 18 08/06/21 11:57 36.7 C 101 H 20 08/06/21 10:37 129 H 119 H 105 H 26 H 08/06/21 07:31 36.6 C 90 18 Resp Resp BP Pulse Ox Pulse Ox Pulse Ox Pulse Ox 08/06/21 15:45 117/75 95 08/06/21 11:57 118/73 94 08/06/21 10:37 28 H 24 96 95 94 08/06/21 07:31 115/74 93 Laboratory Results 08/06/21 08/06/21 08/06/21 Range/Units 16:11 11:28 07:39 WBC (4.8-10.8) K/uL RBC (4.2-5.4) M/uL Hgb (12.0-16.0) g/dL Hct (37-47) % MCV (80-100) fL MCH (25-34) pg MCHC (32-36) g/dL RDW Std Deviation (36.4-46.3) fL RDW Coeff of Cely (11.5-14.5) % Plt Count (130-400) K/uL MPV (7.4-10.4) fL Immature Gran % (Auto) % Neut % (Auto) % Lymph % (Auto) % Sharp % (Auto) % Eos % (Auto) % Baso % (Auto) % Neut # (Auto) (1.4-6.5) K/uL Lymph # (Auto) (1.2-3.4) K/uL Sharp # (Auto) (0.11-0.59) K/uL Eos # (Auto) (0-0.5) K/uL Baso # (Auto) (0-0.2) K/uL Immature Gran # (Auto) (0.00-0.02) K/uL APTT (21.0-31.0) Seconds PTT Ratio Sodium (136-145) mmol/L Potassium (3.5-5.1) mmol/L Chloride (98-107) mmol/L Carbon Dioxide (21-32) mmol/L Anion Gap (3-11) BUN (7-18) mg/dl Creatinine (0.6-1.2) mg/dl Est Cr Clr Drug Dosing ml/min Est GFR ( Amer) ml/min Est GFR (Non-Af Amer) ml/min BUN/Creatinine Ratio (10-20) Glucose (70-99) mg/dl POC Glucose 126 H 139 H 114 H (70-99) mg/dl Calcium (8.5-10.1) mg/dl Magnesium (1.8-2.4) mg/dl 08/06/21 08/06/21 08/06/21 Range/Units 06:41 06:41 06:41 WBC 5.10 (4.8-10.8) K/uL RBC 2.62 L (4.2-5.4) M/uL Hgb 9.2 L (12.0-16.0) g/dL Hct 28.2 L (37-47) % MCV 107.6 H (80-100) fL MCH 35.1 H (25-34) pg MCHC 32.6 (32-36) g/dL RDW Std Deviation 78.1 H (36.4-46.3) fL RDW Coeff of Cely 19.9 H (11.5-14.5) % Plt Count 174 (130-400) K/uL MPV 9.6 (7.4-10.4) fL Immature Gran % (Auto) 0.2 % Neut % (Auto) 76.5 % Lymph % (Auto) 14.3 % Sharp % (Auto) 8.2 % Eos % (Auto) 0.6 % Baso % (Auto) 0.2 % Neut # (Auto) 3.90 (1.4-6.5) K/uL Lymph # (Auto) 0.73 L (1.2-3.4) K/uL Sharp # (Auto) 0.42 (0.11-0.59) K/uL Eos # (Auto) 0.03 (0-0.5) K/uL Baso # (Auto) 0.01 (0-0.2) K/uL Immature Gran # (Auto) 0.01 (0.00-0.02) K/uL APTT 32.6 H (21.0-31.0) Seconds PTT Ratio 1.2 Sodium 136 (136-145) mmol/L Potassium 3.9 (3.5-5.1) mmol/L Chloride 105 (98-107) mmol/L Carbon Dioxide 22 (21-32) mmol/L Anion Gap 9.0 (3-11) BUN 33 H (7-18) mg/dl Creatinine 1.36 H (0.6-1.2) mg/dl Est Cr Clr Drug Dosing 42.0 ml/min Est GFR ( Amer) 46.6 ml/min Est GFR (Non-Af Amer) 40.2 ml/min BUN/Creatinine Ratio 24.2 H (10-20) Glucose 115 H (70-99) mg/dl POC Glucose (70-99) mg/dl Calcium 8.4 L (8.5-10.1) mg/dl Magnesium 1.9 (1.8-2.4) mg/dl 08/05/21 08/05/21 Range/Units 19:52 16:18 WBC (4.8-10.8) K/uL RBC (4.2-5.4) M/uL Hgb (12.0-16.0) g/dL Hct (37-47) % MCV (80-100) fL MCH (25-34) pg MCHC (32-36) g/dL RDW Std Deviation (36.4-46.3) fL RDW Coeff of Cely (11.5-14.5) % Plt Count (130-400) K/uL MPV (7.4-10.4) fL Immature Gran % (Auto) % Neut % (Auto) % Lymph % (Auto) % Sharp % (Auto) % Eos % (Auto) % Baso % (Auto) % Neut # (Auto) (1.4-6.5) K/uL Lymph # (Auto) (1.2-3.4) K/uL Sharp # (Auto) (0.11-0.59) K/uL Eos # (Auto) (0-0.5) K/uL Baso # (Auto) (0-0.2) K/uL Immature Gran # (Auto) (0.00-0.02) K/uL APTT (21.0-31.0) Seconds PTT Ratio Sodium (136-145) mmol/L Potassium (3.5-5.1) mmol/L Chloride (98-107) mmol/L Carbon Dioxide (21-32) mmol/L Anion Gap (3-11) BUN (7-18) mg/dl Creatinine (0.6-1.2) mg/dl Est Cr Clr Drug Dosing ml/min Est GFR ( Amer) ml/min Est GFR (Non-Af Amer) ml/min BUN/Creatinine Ratio (10-20) Glucose (70-99) mg/dl POC Glucose 146 H 136 H (70-99) mg/dl Calcium (8.5-10.1) mg/dl Magnesium (1.8-2.4) mg/dl Diagnostic Findings Barium swallow: FINDINGS: The patient had no problem initiating the swallowing mechanism. There was no evidence of aspiration. Dysmotility was seen with incomplete clearance of esophageal contents. There was no evidence of strictures, filling defects, or outpouchings. Contrast flowed readily from the esophagus into the stomach. No hiatal hernia was identified. There was no evidence of gastroesophageal reflux. The patient was unable to swallow a 13 mm barium pill. IMPRESSION: Dysphagia is seen with incomplete clearance of contrast from the esophagus. The patient did not attempt swallowing the pill. CT PE: Chest CT: Interval development of extensive bilateral pulmonary emboli involving the majority of the pulmonary arteries including a saddle embolus at the main pulmonary arteries. The main pulmonary artery is dilated up to 3.4 cm. There is flattening of the intraventricular septum suggestive of mild right-sided heart strain. The heart is normal in size. No hilar lymphadenopathy. There is a small hiatus hernia. Right jugular Port-A-Cath which terminates in the SVC. Small bilateral pleural effusions. Increase in size in the mid to distal paraesophageal lymphadenopathy consistent with metastatic disease. Increase in size in the lymph nodes/metastatic deposits within the pericardial/anterior diaphragmatic locations. Thickening of the distal esophagus near the gastroesophageal junction consistent with a serosal deposit of metastatic disease. No suspicious lytic or blastic osseous lesions. Small peripheral wedge- shaped density within the right lung base on image 194 measures 2 cm. This may demonstrate central cavitation. This favors a pulmonary infarct. Left basilar linear densities consistent with subsegmental atelectasis. No pneumothorax. The central airways are patent. Abdomen/pelvis CT: Significant progression of metastatic disease demonstrated by extensive omental/peritoneal/and serosal implants as well as progressive small to moderate ascites. This is consistent with peritoneal carcinomatosis. There is mild mass effect along the hepatic and liver surface due to the ascites. Hepatic and splenic metastatic lesions are again noted and are stable slightly increased in size. Large left renal cyst, unchanged. There is mild right hydronephrosis to the level of the ureteropelvic junction which is new from the prior study. This could be due to metastatic disease at the UPJ. Increase in size in the retroperitoneal and mesenteric lymph nodes consistent with metastatic disease. There is also progressive pelvic lymphadenopathy along the right pelvic sidewall consistent with metastatic disease. Serosal implants seen along the stomach consistent with metastatic disease. Peritoneal metastatic implant within the deep pelvis primarily along the vaginal cuff. The bladder is underdistended. Serosal implants within the transverse colon. The main portal vein is patent. Normal caliber abdominal aorta. Colonic diverticulosis. No evidence for acute diverticulitis. No bowel wall thickening or obstruction. Mild body wall edema. No suspicious lytic or blastic osseous lesions. Prior cholecystectomy. IMPRESSION: 1. Extensive bilateral pulmonary emboli including a saddle embolus with mild right-sided heart strain. 2. Interval development of small bilateral pleural effusions. 3. Interval progression of the metastatic disease within the chest, abdomen, and pelvis as described above. 4. Interval development of mild right hydronephrosis to the level of the ureteropelvic junction. No ureteral stones identified. Metastatic disease at the ureteropelvic junction would be the diagnosis of exclusion. 5. A small right lower lobe pulmonary infarct.
[2021-08-06] MEDS ORDERED: PANTOPRAZOLE BOLUS/DRIP 1 EA IV STA (16:17)
[2021-08-06] MEDS ORDERED: PANTOprazole 80 MG in DEXTROSE 5% 100 ML IV ONE (16:30)
[2021-08-06] MEDS: PANTOprazole 40 MG in DEXTROSE 5% 100 ML IV SCH ×2 (17:15→22:15)
[2021-08-06] MEDS: ZOLPIDEM TARTRATE 10 MG TAB PO SCH (20:59)
[2021-08-06] MEDS: OLANZAPINE 2.5 MG TAB PO SCH (20:59)
[2021-08-06] MEDS: SIMVASTATIN 20 MG TAB PO SCH (20:59)
[2021-08-07] MEDS: PANTOprazole 40 MG in DEXTROSE 5% 100 ML IV SCH ×4 (04:32→19:08)
[2021-08-07 06:31] LABS: Basophils # (auto) 0.01 K/uL (0-0.2); Basophils % (auto) 0.2 %; Eosinophils # (auto) 0.05 K/uL (0-0.5); Hematocrit (blood only) 26.5 % (37-47); Hemoglobin 8.6 g/dL (12.0-16.0); Immature Granulocytes # (auto) 0.02 K/uL (0.00-0.02); Immature Granulocytes % (auto) 0.4 %; Lymphocytes # (auto) 0.61 K/uL (1.2-3.4); Lymphocytes % (auto) 12.7 %; Mean Corpuscular Hemoglobin 35.5 pg (25-34); Mean Corpuscular Hgb Conc 32.5 g/dL (32-36); Mean Corpuscular Volume 109.5 fL (80-100); Mean Platelet Volume 9.4 fL (7.4-10.4); Monocytes # (auto) 0.47 K/uL (0.11-0.59); Monocytes % (auto) 9.8 %; Neutrophils # (auto) 3.63 K/uL (1.4-6.5); Neutrophils % (auto) 75.9 %; Platelet Count 178 K/uL (130-400); RDW Standard Deviation 80.8 fL (36.4-46.3); Red Blood Count 2.42 M/uL (4.2-5.4); White Blood Count 4.79 K/uL (4.8-10.8)
[2021-08-07 06:55] LABS: Anisocytosis Present; Polychromasia 1+; Tear Drop Cells 1+
[2021-08-07 07:00] LABS: BUN Creatinine Ratio 24.3 (10-20); Calcium 8.2 mg/dl (8.5-10.1); Creatinine Clr Calc Pharmacy 43.5 ml/min; Est GFR (African American) 47.4 ml/min; Est GFR (Non-African American) 40.9 ml/min; Potassium 3.7 mmol/L (3.5-5.1)
[2021-08-07] MEDS: ENOXAPARIN 80 MG/0.8 ML SYR SQ SCH ×2 (08:18→20:35)
[2021-08-07] MEDS: SODIUM CHLORIDE 0.9% 1000ML 1,000 ML IV SCH ×2 (08:18→20:00)
[2021-08-07] MEDS: INSULIN ASPART 100 UNITS/ML 3 ML PEN SC SCH ×4 (09:05→20:39)
[2021-08-07] MEDS: PROMETHAZINE HCL 12.5 MG in SODIUM CHLORIDE 0.9% 50 ML IV PRN (11:20)
--- NOTE | 2021-08-07 13:13 | Hospitalist Progress Note ---
Date of Service August 07, 2021 Assessment & Plan (1) Acute saddle pulmonary embolism: Plan: Acute Saddle Pulmonary Embolism per SHARITA Rojas's notes with addendum: -Admit to ICU -Patient presenting by referral of outpatient oncologist after scheduled CT chest/ABD/pelvis showed acute saddle pulmonary embolism with mild right heart strain -In the ED, patient is hemodynamically stable and saturating well on room air -IV heparin has been started 08/07 remains stable overall BP and respiratory status stable no hypoxia, even with ambulation echo: no pulmonary hypertension, RV function normal Oncologist Dr. Rose recommends to transition to Lovenox BID x 1 month, then NOACs as outpatient tolerating Lovenox n continue to monitor Dysphagia to solids - Ba swallow: Dysphagia is seen with incomplete clearance of contrast from the esophagus. The patient did not attempt swallowing the pill. - Speech Eval: Esoph dysmotility - on regular diet did not tolerate solids or liquids today - CT abd/pelv: Thickening of the distal esophagus near the gastroesophageal junction consistent with a serosal deposit of metastatic disease. - GI consulted trial of Protonix IV drip full liquid diet--> tolerating so far continue to monitor (2) Ovarian ca: (3) Metastatic disease: Plan: -Initial diagnosis in 2013 -Current treatment plan is p.o. Votrient -however on hold due to recent fatigue -Follows with Dr. Weinberg and Misti Zamorano PA-C -Unfortunately CT shows progression of disease (4) Diabetes mellitus, type 2: Plan: -Hgb A1c 5.4 03/2021 -Hold oral agents, NovoLog per protocol while hospitalized (5) CKD (chronic kidney disease), stage III: Plan: -Baseline creatinine runs in the low 1's -Creatinine 1.5 on admission - crea 1.3 IV NSS ordered (6) DVT prophylaxis: Plan: -On IV heparin as above Admission and Anticipated Discharge Date Admission Date: August 03, 2021 Subjective ff up for acute PE, dysphagia etc seen resting in bedside chair, comfortable states she feels improved this morning no nausea/vomiting, abdominal pain, tolerating full liquid diet no chest pain, dyspnea, palpitations, dizziness no other symptoms no bleeding Review of Systems Review of Systems: all noted and negative except for above Physical Exam Physical Exam: General- oriented x 3, not in distress, speaks in sentences with no effort or accessory muscle use Eyes- anicteric Neck- no JVD Lungs- clear BS BL Heart- normal rate, regular rhythm; no murmurs Abdomen- normal bowel sounds, nondistended, soft, nontender Extremities- no pretibial edema, no calf tenderness Neuro- alert, oriented x 3; no gross focal neurologic deficits Skin- warm & dry Results & Data Results & Data ([facility]) Vital Signs (Past 12 Hours) Vital Signs Temp Pulse Pulse Resp BP Pulse Ox 08/07/21 12:03 36.4 C L 92 H 20 116/73 96 08/07/21 08:00 87 08/07/21 07:47 36.9 C 86 17 121/77 94 08/07/21 03:36 36.7 C 88 19 111/66 92 all noted and reviewed including below (1) Acute saddle pulmonary embolism Acute cor pulmonale presence: with acute cor pulmonale Qualified Code(s): I26.02 - Saddle embolus of pulmonary artery with acute cor pulmonale (2) Ovarian ca Laterality: unspecified laterality Qualified Code(s): C56.9 - Malignant n eoplasm of unspecified ovary
[2021-08-07] MEDS: ACETAMINOPHEN 1,000 MG/100 ML VIAL IV PRN (19:08)
[2021-08-07] MEDS: SIMVASTATIN 20 MG TAB PO SCH (20:35)
[2021-08-07] MEDS: ZOLPIDEM TARTRATE 10 MG TAB PO SCH (20:35)
[2021-08-07] MEDS: OLANZAPINE 2.5 MG TAB PO SCH (20:35)
[2021-08-08] MEDS: PANTOprazole 40 MG in DEXTROSE 5% 100 ML IV SCH ×5 (01:36→21:04)
[2021-08-08 08:02] LABS: Basophils # (auto) 0.01 K/uL (0-0.2); Basophils % (auto) 0.2 %; Eosinophils # (auto) 0.07 K/uL (0-0.5); Eosinophils % (auto) 1.3 %; Hematocrit (blood only) 29.2 % (37-47); Hemoglobin 9.4 g/dL (12.0-16.0); Immature Granulocytes # (auto) 0.02 K/uL (0.00-0.02); Immature Granulocytes % (auto) 0.4 %; Lymphocytes # (auto) 0.72 K/uL (1.2-3.4); Mean Corpuscular Hemoglobin 35.5 pg (25-34); Mean Corpuscular Hgb Conc 32.2 g/dL (32-36); Mean Corpuscular Volume 110.2 fL (80-100); Mean Platelet Volume 9.6 fL (7.4-10.4); Monocytes # (auto) 0.49 K/uL (0.11-0.59); Monocytes % (auto) 8.8 %; Neutrophils # (auto) 4.24 K/uL (1.4-6.5); Neutrophils % (auto) 76.3 %; Platelet Count 204 K/uL (130-400); RDW Standard Deviation 80.1 fL (36.4-46.3); Red Blood Count 2.65 M/uL (4.2-5.4); White Blood Count 5.55 K/uL (4.8-10.8)
[2021-08-08] MEDS: INSULIN ASPART 100 UNITS/ML 3 ML PEN SC SCH ×4 (08:15→21:21)
[2021-08-08] MEDS: ENOXAPARIN 80 MG/0.8 ML SYR SQ SCH ×2 (08:17→22:02)
[2021-08-08 08:21] LABS: Anisocytosis Present; Macrocytosis Present; Polychromasia 1+; Tear Drop Cells 1+
[2021-08-08 08:27] LABS: BUN Creatinine Ratio 21.2 (10-20); Calcium 8.3 mg/dl (8.5-10.1); Creatinine Clr Calc Pharmacy 41.1 ml/min; Est GFR (African American) 43.8 ml/min; Est GFR (Non-African American) 37.8 ml/min; Potassium 3.7 mmol/L (3.5-5.1)
[2021-08-08] MEDS: SODIUM CHLORIDE 0.9% 1000ML 1,000 ML IV SCH (09:35)
--- NOTE | 2021-08-08 11:29 | XRay Report ---
XR chest 1V portable CLINICAL HISTORY: shortness of breath, r/o pulmonary edema, effusion TECHNIQUE: Single frontal radiograph of the chest was obtained. Comparison: None available at the time of this dictation. FINDINGS: Right portacatheter is seen. The cardiomediastinal silhouette is normal. There are bilateral lower susan ng airspace opacities. Bilateral small pleural effusions. IMPRESSION: Bilateral small pleural effusions are seen. Bilateral airspace opacities may represent atelectasis, p neumonia, and/or aspiration. ACT 112: Negative or not required by law. Electronically signed by: Roberto Carlos Sutherland M.D. 08/08/2021 11:28 AM
[2021-08-08] MEDS ORDERED: FUROSEMIDE INJ 20 MG/2 ML VIAL IV ONE (14:01)
--- NOTE | 2021-08-08 14:01 | Hospitalist Progress Note ---
Date of Service August 08, 2021 Assessment & Plan (1) Acute saddle pulmonary embolism: Plan: Acute Saddle Pulmonary Embolism per SAHRITA Rojas's notes with addendum: -Admit to ICU -Patient presenting by referral of outpatient oncologist after scheduled CT chest/ABD/pelvis showed acute saddle pulmonary embolism with mild right heart strain -In the ED, patient is hemodynamically stable and saturating well on room air -IV heparin has been started 08/07 remains stable overall BP and respiratory status stable no hypoxia, even with ambulation echo: no pulmonary hypertension, RV function normal Oncologist Dr. Rose recommends to transition to Lovenox BID x 1 month, then NOACs as outpatient tolerating Lovenox n continue to monitor Pleural Effusion - d/c IV fluids Lasix 20mg IV one dose monitor crea Dysphagia to solids - Ba swallow: Dysphagia is seen with incomplete clearance of contrast from the esophagus. The patient did not attempt swallowing the pill. - Speech Eval: Esoph dysmotility - on regular diet did not tolerate solids or liquids today - CT abd/pelv: Thickening of the distal esophagus near the gastroesophageal junction consistent with a serosal deposit of metastatic disease. - GI consulted trial of Protonix IV drip full liquid diet--> tolerating so far continue to monitor plan of care discussed with patient in detail and at length all questions answered she is understanding, agreeable, comfortable with the plan of care (2) Ovarian ca: (3) Metastatic disease: Plan: -Initial diagnosis in 2013 -Current treatment plan is p.o. Votrient -however on hold due to recent fatigue -Follows with Dr. Weinberg and Misti Zamorano PA-C -Unfortunately CT shows progression of disease (4) Diabetes mellitus, type 2: Plan: -Hgb A1c 5.4 03/2021 -Hold oral agents, NovoLog per protocol while hospitalized (5) CKD (chronic kidney disease), stage III: Plan: -Baseline creatinine runs in the low 1's -Creatinine 1.5 on admission - crea 1.4 (+) pleural effusion patient reports dyspnea on exertion monitor (6) DVT prophylaxis: Plan: -On IV heparin as above Admission and Anticipated Discharge Date Admission Date: August 03, 2021 Subjective ff up for acute PE, dysphagia, etc seen resting in bed, sitting up states she feels ok overall reports some dyspnea, with exertion, no cough/fever/chills no abdominal pain has occasional nausea, none since this morning tolerating clears no other symptoms Review of Systems Review of Systems: all noted and negative except for above Physical Exam Physical Exam: General- oriented x 3, not in distress, speaks in sentences with no effort or accessory muscle use Eyes- anicteric Neck- no JVD Lungs- mild rales at the bases no wheezing Heart- normal rate, regular rhythm; no murmurs Abdomen- normal bowel sounds, nondistended, soft, nontender Extremities- trace pretibial edema, no calf tenderness Neuro- alert, oriented x 3; no gross focal neurologic deficits Skin- warm & dry Results & Data Results & Data ([facility]) Vital Signs (Past 12 Hours) Vital Signs Temp Pulse Pulse Resp BP Pulse Ox 08/08/21 10:47 36.7 C 105 H 17 118/81 95 08/08/21 08:00 86 08/08/21 07:58 36.8 C 98 H 20 112/74 95 08/08/21 03:20 36.6 C 82 16 130/78 92 all noted and reviewed including below (1) Ovarian ca Laterality: unspecified laterality Qualified Code(s): C56.9 - Malignant neoplasm of unspecified ovary (2) Acute saddle pulmonary embolism Acute cor pulmonale presence: with acute cor pulmonale Qualified Code(s): I26.02 - Saddle embolus of pulmonary artery with acute cor pulmonale
[2021-08-08] MEDS: PROMETHAZINE HCL 12.5 MG in SODIUM CHLORIDE 0.9% 50 ML IV PRN (20:50)
[2021-08-08] MEDS: ZOLPIDEM TARTRATE 10 MG TAB PO SCH (22:02)
[2021-08-08] MEDS: SIMVASTATIN 20 MG TAB PO SCH (22:02)
[2021-08-08] MEDS: OLANZAPINE 2.5 MG TAB PO SCH (22:02)
[2021-08-09] MEDS: PANTOprazole 40 MG in DEXTROSE 5% 100 ML IV SCH ×5 (01:46→20:30)
[2021-08-09 07:05] LABS: Basophils # (auto) 0.02 K/uL (0-0.2); Basophils % (auto) 0.4 %; Eosinophils # (auto) 0.06 K/uL (0-0.5); Eosinophils % (auto) 1.2 %; Hematocrit (blood only) 28.5 % (37-47); Hemoglobin 9.2 g/dL (12.0-16.0); Immature Granulocytes # (auto) 0.01 K/uL (0.00-0.02); Immature Granulocytes % (auto) 0.2 %; Lymphocytes # (auto) 0.88 K/uL (1.2-3.4); Lymphocytes % (auto) 17.2 %; Mean Corpuscular Hemoglobin 35.4 pg (25-34); Mean Corpuscular Hgb Conc 32.3 g/dL (32-36); Mean Corpuscular Volume 109.6 fL (80-100); Mean Platelet Volume 9.6 fL (7.4-10.4); Monocytes # (auto) 0.48 K/uL (0.11-0.59); Monocytes % (auto) 9.4 %; Neutrophils # (auto) 3.67 K/uL (1.4-6.5); Neutrophils % (auto) 71.6 %; Platelet Count 202 K/uL (130-400); RDW Coefficient of Variation 19.8 % (11.5-14.5); White Blood Count 5.12 K/uL (4.8-10.8)
[2021-08-09 07:56] LABS: BUN Creatinine Ratio 20.1 (10-20); Creatinine Clr Calc Pharmacy 39.8 ml/min; Est GFR (African American) 41.7 ml/min
[2021-08-09] MEDS: ENOXAPARIN 80 MG/0.8 ML SYR SQ SCH ×2 (08:47→20:11)
[2021-08-09] MEDS: INSULIN ASPART 100 UNITS/ML 3 ML PEN SC SCH ×4 (08:49→21:12)
[2021-08-09] MEDS: ONDANSETRON INJ 2 MG/ML 2 ML VIAL IV PRN ×2 (08:54→23:39)
--- NOTE | 2021-08-09 09:12 | Gastroenterology Progress Note ---
Date of Service August 09, 2021 Assessment & Plan (1) Dysphagia: (2) Nausea & vomiting: (3) Metastatic disease: Plan: 65 y/o female with h/o metastatic ovarian cancer admitted w/ acute saddle PE, GI consulted for dysphagia to solids/liquids. Barium swallow indicated incomplete clearance of contrast from the esophagus. CT imaging concerning for distal esophageal thickening near the GE; ? serosal mets vs esophagitis. - Pulmonary evaluation - Anesthesia evaluation - Tentative plan for EGD in OR Monday - Can continue IV PPI as ordered - Antiemetics PRN - Continue supportive measures Thank you for allowing us to participate in the care of this patient. Please call with any acute changes, questions or concerns. Please see addendum below with additional recommendation from my supervising physician. Admission and Anticipated Discharge Date Admission Date: August 03, 2021 Supervising Physician Co-Signing Physician Notes I performed a history and physical examination of the patient today, including specifically on physical exam - soft abdomen. I have discussed the patient's management with the advanced practitioner. Please refer to the nurse practitioner's note for the documented findings and plan of care. Dysphagia did not improve despite IV PPI. Plan for EGD tomorrow in OR in case an esophageal stent is needed. Subjective Pt was seen and evaluated, chart reviewed. Persistent symptoms despite adequate trial of IV PPI. Solid and liquids dysphagia. Review of Systems Review of Systems: All systems reviewed & are unremarkable except as noted in HPI & below Physical Exam Constitutional: WD/WN, vitals as above Neck: trachea midline, no thyromegaly Respiratory: normal respiratory effort, lungs clear to auscultation Cardiovascular: RRR, no murmur, no edema Gastrointestinal (Abdomen): normal bowel sounds, soft, nontender, no hepatosplenomegaly Skin: no rashes, warm and dry Results & Data ([facility]) Vital Signs (Past 12 Hours) Vital Signs Temp Pulse Pulse Resp BP Pulse Ox 08/09/21 07:40 36.5 C 90 16 116/80 96 08/09/21 03:21 36.7 C 87 20 98/62 L 94 08/09/21 00:01 99 H 08/08/21 23:36 36.7 C 105 H 19 118/81 95 Laboratory Results 08/09/21 08/09/21 08/09/21 Range/Units 07:07 06:21 06:21 WBC 5.12 (4.8-10.8) K/uL RBC 2.60 L (4.2-5.4) M/uL Hgb 9.2 L (12.0-16.0) g/dL Hct 28.5 L (37-47) % MCV 109.6 H (80-100) fL MCH 35.4 H (25-34) pg MCHC 32.3 (32-36) g/dL RDW Std Deviation 80.0 H (36.4-46.3) fL RDW Coeff of Cely 19.8 H (11.5-14.5) % Plt Count 202 (130-400) K/uL MPV 9.6 (7.4-10.4) fL Immature Gran % (Auto) 0.2 % Neut % (Auto) 71.6 % Lymph % (Auto) 17.2 % [place] % (Auto) 9.4 % Eos % (Auto) 1.2 % Baso % (Auto) 0.4 % Neut # (Auto) 3.67 (1.4-6.5) K/uL Lymph # (Auto) 0.88 L (1.2-3.4) K/uL [place] # (Auto) 0.48 (0.11-0.59) K/uL Eos # (Auto) 0.06 (0-0.5) K/uL Baso # (Auto) 0.02 (0-0.2) K/uL Immature Gran # (Auto) 0.01 (0.00-0.02) K/uL Sodium 138 (136-145) mmol/L Potassium 4.0 (3.5-5.1) mmol/L Chloride 109 H (98-107) mmol/L Carbon Dioxide 21 (21-32) mmol/L Anion Gap 8.0 (3-11) BUN 30 H (7-18) mg/dl Creatinine 1.49 H (0.6-1.2) mg/dl Est Cr Clr Drug Dosing 39.8 ml/min Est GFR ( Amer) 41.7 ml/min Est GFR (Non-Af Amer) 36.0 ml/min BUN/Creatinine Ratio 20.1 H (10-20) Glucose 104 H (70-99) mg/dl POC Glucose 131 H (70-99) mg/dl Calcium 8.0 L (8.5-10.1) mg/dl 08/08/21 08/08/21 08/08/21 Range/Units 20:35 16:09 11:11 WBC (4.8-10.8) K/uL RBC (4.2-5.4) M/uL Hgb (12.0-16.0) g/dL Hct (37-47) % MCV (80-100) fL MCH (25-34) pg MCHC (32-36) g/dL RDW Std Deviation (36.4-46.3) fL RDW Coeff of Cely (11.5-14.5) % Plt Count (130-400) K/uL MPV (7.4-10.4) fL Immature Gran % (Auto) % Neut % (Auto) % Lymph % (Auto) % [place] % (Auto) % Eos % (Auto) % Baso % (Auto) % Neut # (Auto) (1.4-6.5) K/uL Lymph # (Auto) (1.2-3.4) K/uL [place] # (Auto) (0.11-0.59) K/uL Eos # (Auto) (0-0.5) K/uL Baso # (Auto) (0-0.2) K/uL Immature Gran # (Auto) (0.00-0.02) K/uL Sodium (136-145) mmol/L Potassium (3.5-5.1) mmol/L Chloride (98-107) mmol/L Carbon Dioxide (21-32) mmol/L Anion Gap (3-11) BUN (7-18) mg/dl Creatinine (0.6-1.2) mg/dl Est Cr Clr Drug Dosing ml/min Est GFR ( Amer) ml/min Est GFR (Non-Af Amer) ml/min BUN/Creatinine Ratio (10-20) Glucose (70-99) mg/dl POC Glucose 113 H 119 H 177 H (70-99) mg/dl Calcium (8.5-10.1) mg/dl
--- NOTE | 2021-08-09 09:34 | Pulmonology Progress Note ---
Date of Service August 09, 2021 Assessment & Plan (1) Acute saddle pulmonary embolism: Plan: Impression: 65-year-old female with metastatic ovarian cancer initially admitted to ICU with saddle PE. There was no right heart strain and patient was only tr eated with heparin drip and downgraded on 08/04/2021 --Acute hypoxic respiratory failure Secondary to acute saddle PE CT chest showed extensive bilateral pulmonary emboli including a saddle embolus with mild right heart strain, small right lower lobe pulmonary infarct. Interval progression of metastatic disease within the chest abdomen pelvis was also noted -TTE without evidence of cor pulmonale and troponin negative, hemodynamically stable, no current indication for lysis Plan: In a patient who had saddle PE recently I would recommend to defer any elective procedures for at least 3 months but in patient's case she has significant dysphagia and she is not able to eat. If the EGD is going to change diagnosis and/or is therapeutic for something would recommend holding Lovenox for at least 12 hours prior to the procedure Transition to heparin drip and holding heparin if 4 hours prior to the procedure can also be thought of Patient will be moderate to high risk given the recent saddle PE This information was relayed to the patient as well All questions queries of the patient were answered in depth Case discussed with RN Please note the above document was generated using voice recognition software. It may contain grammatical, syntax or spelling errors.Any formal questions or concerns about the content, text or information contained within the body of this dictation should be directly addressed to the provider for clarification. Acute cor pulmonale presence: with acute cor pulmonale Qualified Code(s): I26.02 - Saddle embolus of pulmonary artery with acute cor pulmonale (2) Metastatic disease: (3) Acute respiratory failure with hypoxia: Admission and Anticipated Discharge Date Admission Date: August 03, 2021 Subjective 65-year-old with past medical history of stage IV metastatic ovarian CA init faith presented to hospital with shortness of breath and was found to have saddle PE No heart strain was appreciated on the 2D echo and patient was treated conservatively with heparin drip She was transferred out of the ICU 08/04/2021 Pulmonary were consulted as patient had dysphagia and is planned to have EGD tomorrow At the time of examination patient was saturating 94% on room air She was not in any respiratory distress She did state she gets short of breath on exertion. Denies any chest pain, no dizziness, no palpitation at that time No dysuria, no hematuria, no hematochezia She does complain of dysphagia which can be to solids or liquids. She has been burping a lot Denies any significant odynophagia Social history: [id number] smoking history quit at the age of 38 Review of Systems Review of Systems: All systems reviewed & are unremarkable except as noted in Subjective Physical Exam Physical Exam: Constitutional: No acute distress HEENT: EOMI, PERRLA Respiratory system: Decreased air entry bilaterally, no wheeze, no rhonchi, no crackles CVS: S1-S2 positive, no murmurs or gallops, right-sided Port-A-Cath Abdomen: Soft, nontender, nondistended, positive bowel sounds x4 Extremities: +2 pulses bilaterally radialis/ dorsalis pedis, no cyanosis, no edema Neuro: Awake alert oriented x3 Psych: Normal mood and affect G/U: No Chan Skin: no rashes, warm and dry Lymphatic: no cervical or axillary lymphadenopathy Results & Data Results & Data ([facility]) Vital Signs (Past 12 Hours) Vital Signs Temp Pulse Pulse Resp BP Pulse Ox 08/09/21 07:40 36.5 C 90 16 116/80 96 08/09/21 03:21 36.7 C 87 20 98/62 L 94 08/09/21 00:01 99 H 08/08/21 23:36 36.7 C 105 H 19 118/81 95 08/09/21 06:21 08/09/21 06:21 PG Care Time/CCT Total # of Minutes Spent Total Time Spent with Patient: Total time spent is greater than 50% in coordination of care (as documented) at patient's floor/unit and/or counseling patient: Coding [place] [address] Subseq Hosp Care Lvl 3 Patient Type Established Diagnoses Acute saddle pulmonary embolism I26.02 Acute cor pulmonale presence: with acute cor pulmonale Metastatic disease C79.9 Acute respiratory failure with hypoxia J96.01
[2021-08-09] MEDS ORDERED: FUROSEMIDE INJ 20 MG/2 ML VIAL IV ONE (17:17)
--- NOTE | 2021-08-09 17:27 | Hospitalist Progress Note ---
Date of Service August 09, 2021 Assessment & Plan (1) Acute saddle pulmonary embolism: Plan: Acute Saddle Pulmonary Embolism per SHARITA Rojas's notes with addendum: -Admit to ICU -Patient presenting by referral of outpatient oncologist after scheduled CT chest/ABD/pelvis showed acute saddle pulmonary embolism with mild right heart strain -In the ED, patient is hemodynamically stable and saturating well on room air -IV heparin has been started 08/09 remains stable overall BP and respiratory status stable no hypoxia, even with ambulation echo: no pulmonary hypertension, RV function normal Oncologist Dr. Rose recommends to transition to Lovenox BID x 1 month, then NOACs as outpatient tolerating Lovenox Discussing with GI, if patient is going to have EGD tomorrow, will need to hold Lovenox dose tonight Pleural Effusion - d/c IV fluids Lasix 20mg IV additional dose today Creatinine 1.4 monitor crea Dysphagia to solids - Ba swallow: Dysphagia is seen with incomplete clearance of contrast from the esophagus. The patient did not attempt swallowing the pill. - Speech Eval: Esoph dysmotility - on regular diet did not tolerate solids or liquids today - CT abd/pelv: Thickening of the distal esophagus near the gastroesophageal junction consistent with a serosal deposit of metastatic disease. - GI consulted trial of Protonix IV drip full liquid diet--> tolerating so far -Pulmonary service consulted for possible EGD tomorrow, recommend holding Lovenox tonight if patient was to proceed with EGD Discussed with GI, they are confirming plans for EGD tomorrow plan of care discussed with patient in detail and at length all questions answered she is understanding, agreeable, comfortable with the plan of care (2) Ovarian ca: (3) Metastatic disease: Plan: -Initial diagnosis in 2013 -Current treatment plan is p.o. Votrient -however on hold due to recent fatigue -Follows with Dr. Weinberg and Misti Zamorano PA-C -Unfortunately CT shows progression of disease (4) Diabetes mellitus, type 2: Plan: -Hgb A1c 5.4 03/2021 -Hold oral agents, NovoLog per protocol while hospitalized (5) CKD (chronic kidney disease), stage III: Plan: -Baseline creatinine runs in the low 1's -Creatinine 1.5 on admission - crea 1.4 (+) pleural effusion patient reports dyspnea on exertion monitor (6) DVT prophylaxis: Plan: -On IV heparin as above Admission and Anticipated Discharge Date Admission Date: August 03, 2021 Subjective Follow-up for acute PE, dysphagia, etc. Seen resting in bed, comfortable, not in distress Has mild dyspnea on exertion No chest pain, palpitations, bleeding Tolerating full liquid diet in small quantities at a time No abdominal pain, has loose stools No fevers or chills No other symptoms Review of Systems Review of Systems: all noted and negative except for above Physical Exam Physical Exam: General- oriented x 3, not in distress, speaks in sentences with no effort or accessory muscle use Eyes- anicteric Neck- no JVD Lungs-mild decreased breath sounds at the bases, no crackles or wheezing Heart- normal rate, regular rhythm; no murmurs Abdomen- normal bowel sounds, nondistended, soft, nontender Extremities-mild pretibial edema, no calf tenderness Neuro- alert, oriented x 3; no gross focal neurologic deficits Skin- warm & dry Results & Data Results & Data ([facility]) Vital Signs (Past 12 Hours) Vital Signs Temp Pulse Pulse Resp BP Pulse Ox 08/09/21 16:00 95 H 08/09/21 15:10 36.7 C 96 H 17 123/84 95 08/09/21 10:58 36.8 C 96 H 19 121/81 96 08/09/21 08:00 97 H 08/09/21 07:40 36.5 C 90 16 116/80 96 all noted and reviewed including below (1) Acute saddle pulmonary embolism Acute cor pulmonale presence: with acute cor pulmonale Qualified Code(s): I26.02 - Saddle embolus of pulmonary artery with acute cor pulmonale (2) Ovarian ca Laterality: unspecified laterality Qualified Code(s): C56.9 - Malignant neoplasm of unspecified ovary
--- NOTE | 2021-08-09 18:42 | Anesthesiology Consultation ---
Date of Service August 09, 2021 The patient was admitted on 08/03/21 with acute pulmonary saddle embolism. She is hemodynamically stable now. Pulmonology evaluated her and recommends to wait at least three months before any elective procedure. However, the patient is unable to eat due to significant dysphagia making the procedure urgent. She is a moderate to high risk for anesthesia so her procedure will be done in the main OR rather than the endoscopy suite. Assessment & Plan Chart Review Chart Review: Acceptable Risk for Surgery (necessary procedure) and Patient NOT seen in Pre Admission Testing Consults Requested none pulmonology and medicine are following the patient ASA ASA4 History Surgery Operation Date: 08/10/21 07:00 Proposed Procedures p Esophagogastroduodenoscopy - Goyo Villareal MD Operation Date: 08/10/21 08:30 Proposed Procedures p Esophagogastroduodenoscopy Dr Villareal - Goyo Villareal MD Height/Weight Height: 5 ft 5 in Weight: 86.5 kg Allergies Allergy/AdvReac Type Severity Reaction Status Date / Time No Known Allergies Allergy Verified 08/03/21 15:53 Medications Home Medications Medication Instructions Recorded Confirmed Last Taken lisinopril 10 mg tablet 10 mg PO QAM 08/27/18 08/03/21 08/03/21 lorazepam 0.5 mg tablet 0.5 mg PO TID PRN 08/27/18 08/03/21 08/22/18 21:00 metformin 500 mg tablet 1,000 mg PO BID 08/27/18 08/03/21 08/02/21 on hold for testing multivitamin 1 tab PO QAM 08/27/18 08/03/21 08/03/21 simvastatin 20 mg tablet 20 mg PO PM 08/27/18 08/03/21 08/02/21 zolpidem 10 mg tablet 1 tab PO HS 08/27/18 08/03/21 08/02/21 prochlorperazine maleate 5 mg 5 mg PO TID PRN 06/18/21 08/03/21 Unknown tablet (Compazine) olanzapine 2.5 mg tablet 2.5 mg PO HS 08/03/21 08/03/21 08/02/21 oxycodone 5 mg tablet 5 mg PO .EVERY 4-6 HOURS PRN 08/03/21 08/03/21 Unknown pantoprazole 40 mg tablet,delayed 40 mg PO QAM 08/03/21 08/03/21 08/03/21 release prednisone 20 mg tablet 20 mg PO DAILY 08/03/21 08/03/21 Unknown enoxaparin 80 mg/0.8 mL 80 mg SUBCUT BID 30 Days #48 ml 08/05/21 Unknown subcutaneous syringe (Lovenox) Active Medications Generic Name Dose Route Start Last Admin Trade Name Freq PRN Reason Stop Dose Admin Enoxaparin Sodium 80 mg 08/05/21 13:30 08/09/21 08:47 Enoxaparin 80 Mg/0.8 Ml Syr SQ 09/04/21 13:29 80 mg BID FERNANDO Administration Promethazine HCl 12.5 mg/ 50.5 mls @ 202 mls/hr 08/04/21 12:06 08/08/21 21:05 Sodium Chloride IV 09/03/21 12:05 Infused Q6H PRN Infusion Nausea And Vomiting Pantoprazole Sodium 40 mg/ 100 mls @ 20 mls/hr 08/06/21 16:45 08/09/21 17:02 Dextrose IV 09/05/21 16:44 8 mg/hr Q5H FERNANDO 20 mls/hr Administration 8 MG/HR Acetaminophen 1,000 mg in 100 mls @ 400 mls/hr 08/07/21 18:39 08/07/21 19:23 Ofirmev IV 08/10/21 18:38 Infused Q8H PRN Infusion pain/fever Protocol Insulin Aspart 0 units 08/03/21 18:30 08/09/21 17:02 Insulin Aspart 100 Units/Ml 3 Ml Pen SC 09/02/21 18:29 Not Given ACHS FERNANDO Olanzapine 2.5 mg 08/03/21 21:00 08/08/21 22:02 Olanzapine 2.5 Mg Tab PO 09/02/21 20:59 2.5 mg HS FERNANDO Administration Ondansetron HCl 4 mg 08/04/21 17:07 08/09/21 08:54 Ondansetron Inj 2 Mg/Ml 2 Ml Vial IV 09/03/21 17:06 4 mg Q6H PRN Administration Nausea And Vomiting Simethicone 125 mg 08/04/21 00:35 08/08/21 03:17 Simethicone 40 Mg/0.6 Ml 30ml PO 09/03/21 00:34 125 mg Q6H PRN Administration Gas or Constipation Simvastatin 20 mg 08/03/21 21:00 08/08/21 22:02 Simvastatin 20 Mg Tab PO 09/02/21 20:59 20 mg PM FERNANDO Administration Zolpidem Tartrate 10 mg 08/03/21 21:00 08/08/21 22:02 Zolpidem Tartrate 10 Mg Tab PO 09/02/21 20:59 10 mg HS FERNANDO Administration Past Medical History Medical History (Updated 08/09/21 @ 18:51 by Cas Cordon MD) Acute saddle pulmonary embolism 08/03/21 Anemia Anxiety CKD (chronic kidney disease), stage III Degenerative disc disease Diabetes mellitus, type 2 History of anesthesia reaction difficulty waking after cataract surgery Hyperlipidemia Hypertension Metastatic disease ovarian cancer with 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 Treated with systemic chemotherapy. Continued surveillance and finding of lymphadenopathy/nodule of the pelvis February 23, 2018 Status post fine-needle aspiration April 18, 2018 revealing metastatic adenocarcinoma consistent with ovarian origin. Status post completion of stereotactic body radiation therapy June 04, 2018. 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 Treated with systemic chemotherapy. Continued surveillance and finding of lymphadenopathy/nodule of the pelvis February 23, 2018 Status post fine-needle aspiration April 18, 2018 revealing metastatic lalita nocarcinoma consistent with ovarian origin." Past Family History Family History Grandmother Family history of diabetes mellitus maternal Past Surgical History Surgical History History of bilateral cataract extraction History of cholecystectomy History of esophagogastroduodenoscopy (EGD) History of tonsillectomy and adenoidectomy History of tooth extraction wisdom teeth History of total abdominal hysterectomy and bilateral salpingo-oophorectomy 2014 Hx of inguinal hernia repair unsure which side Social History Smoking Status: Former smoker Smoking End Date: quit 20 years ago Hx Alcohol Use: No Hx Substance Use: No substance use type: does not use Physical Exam Vital Signs Last Vital Signs Temp 36.7 C 08/09/21 15:10 Pulse 95 H 08/09/21 16:00 Resp 17 08/09/21 15:10 BP 123/84 08/09/21 15:10 Pulse Ox 95 08/09/21 15:10 Testing Laboratory Results 08/09/21 06:21 08/09/21 06:21 PT 10.4 Seconds (9.0-12.0) 08/03/21 14:16 INR 1.0 (0.9-1.1) 08/03/21 14:16 APTT 32.6 Seconds (21.0-31.0) H 08/06/21 06:41 08/09/21 08/09/21 08/09/21 16:14 11: 07:07 POC Glucose 125 H 125 H 131 H Electrocardiogram Date: 09/03/21 DICTATED BY:Jorden Armstrong MD Test Reason : Blood Pressure : / mmHG Vent. Rate : 102 BPM Atrial Rate : 102 BPM P-R Int : 144 ms QRS Dur : 080 ms QT Int : 334 ms P-R-T Axes : 093 055 045 degrees QTc Int : 435 ms Sinus tachycardia Low voltage QRS Nonspecific T wave abnormality Abnormal ECG No previous ECGs available Confirmed by Jorden Armstrong ([id number]) on 08/04/2021 5:27:09 AM Referred By: ED Confirmed By:Jorden Armstrong Signed By: 08/04/21 0527 Dictated:08/03/21 1417 Chest X-Ray Date: 08/08/21 XR chest 1V portable CLINICAL HISTORY: shortness of breath, r/o pulmonary edema, effusion TECHNIQUE: Single frontal radiograph of the chest was obtained. Comparison: None available at the time of this dictation. FINDINGS: Right portacatheter is seen. The cardiomediastinal silhouette is normal. There are bilateral lower lung airspace opacities. Bilateral small pleural effusions. IMPRESSION: Bilateral small pleural effusions are seen. Bilateral airspace opacities may represent atelectasis, pneumonia, and/or aspiration. ACT 112: Negative or not required by law. Electronically signed by: Roberto Carlos Sutherland M.D. 08/08/2021 11:28 AM Dictated:08/08/211122 Transcribed: 08/08/211122 Echocardiogram Date: 08/03/21 EF: 60-65 LV Function: normal mild pulmonic regurgitation, no evidence of pulmonary HTN Other Testing CHEST CT WITH INTRAVENOUS CONTRAST, ABDOMEN AND PELVIS CT WITH IV AND ORAL CONTRAST CT DOSE: 1427.89 mGy.cm HISTORY: Ovarian cancer. Follow-up. TECHNIQUE: Multiaxial CT images of the chest, abdomen and pelvis were performed following the use of intravenous and oral contrast. A dose lowering technique was utilized adhering to the principles of ALARA. COMPARISON STUDY: Chest CT and Abdomen and pelvis CT 05/10/2021. FINDINGS: Chest CT: Interval development of extensive bilateral pulmonary emboli involving the majority of the pulmonary arteries including a saddle embolus at the main pulmonary arteries. The main pulmonary artery is dilated up to 3.4 cm. There is flattening of the intraventricular septum suggestive of mild right-sided heart strain. The heart is normal in size. No hilar lymphadenopathy. There is a small hiatus hernia. Right jugular Port-A-Cath which terminates in the SVC. Small bilateral pleural effusions. Increase in size in the mid to distal paraesophageal lymphadenopathy consistent with metastatic disease. Increase in s ize in the lymph nodes/metastatic deposits within the pericardial/anterior diaphragmatic locations. Thickening of the distal esophagus near the gastroesophageal junction consistent with a serosal deposit of metastatic disease. No suspicious lytic or blastic osseous lesions. Small peripheral wedge-shaped density within the right lung base on image 194 measures 2 cm. This may demonstrate central cavitation. This favors a pulmonary infarct. Left basilar linear densities consistent with subsegmental atelectasis. No pneumothorax. The central airways are patent. Abdomen/pelvis CT: Significant progression of metastatic disease demonstrated by extensive omental/peritoneal/and serosal implants as well as progressive small to moderate ascites. This is consistent with peritoneal carcinomatosis. There is mild mass effect along the hepatic and liver surface due to the ascites. Hepatic and splenic metastatic lesions are again noted and are stable slightly increased in size. Large left renal cyst, unchanged. There is mild right hydronephrosis to the level of the ureteropelvic junction which is new from the prior study. This could be due to metastatic disease at the UPJ. Increase in size in the r etroperitoneal and mesenteric lymph nodes consistent with metastatic disease. There is also progressive pelvic lymphadenopathy along the right pelvic sidewall consistent with metastatic disease. Serosal implants seen along the stomach consistent with metastatic disease. Peritoneal metastatic implant within the deep pelvis primarily along the vaginal cuff. The bladder is underdistended. Serosal implants within the transverse colon. The main portal vein is patent. Normal caliber abdominal aorta. Colonic diverticulosis. No evidence for acute diverticulitis. No bowel wall thickening or obstruction. Mild body wall edema. No suspicious lytic or blastic osseous lesions. Prior cholecystectomy. IMPRESSION: 1. Extensive bilateral pulmonary emboli including a saddle embolus with mild right-sided heart strain. 2. Interval development of small bilateral pleural effusions. 3. Interval progression of the metastatic disease within the chest, abdomen, and pelvis as described above. 4. Interval development of mild right hydronephrosis to the level of the ureteropelvic junction. No ureteral stones identified. Metastatic disease at the ureteropelvic junction would be the diagnosis of exclusion. 5. A small right lower lobe pulmonary infarct. 6. These findings were discussed with Dr. Segundo at 1:35 PM on 08/03/2021. ACT 112: Negative or not required by law. Electronically signed by: Cas Arcos M.D. 08/03/2021 1:43 PM Dictated:08/03/21 1319 Transcribed: 08/03/21 1319
[2021-08-09] MEDS: PROMETHAZINE HCL 12.5 MG in SODIUM CHLORIDE 0.9% 50 ML IV PRN (20:10)
[2021-08-09] MEDS: ZOLPIDEM TARTRATE 10 MG TAB PO SCH (20:30)
[2021-08-09] MEDS: OLANZAPINE 2.5 MG TAB PO SCH (20:30)
[2021-08-09] MEDS: SIMVASTATIN 20 MG TAB PO SCH (20:31)
[2021-08-09] MEDS: ACETAMINOPHEN 1,000 MG/100 ML VIAL IV PRN (23:40)
[2021-08-10] MEDS: PROMETHAZINE HCL 12.5 MG in SODIUM CHLORIDE 0.9% 50 ML IV PRN ×3 (01:42→23:58)
[2021-08-10] MEDS: PANTOprazole 40 MG in DEXTROSE 5% 100 ML IV SCH ×4 (02:07→17:05)
[2021-08-10 06:22] LABS: Basophils # (auto) 0.02 K/uL (0-0.2); Basophils % (auto) 0.4 %; Eosinophils # (auto) 0.07 K/uL (0-0.5); Eosinophils % (auto) 1.4 %; Hematocrit (blood only) 29.2 % (37-47); Hemoglobin 9.5 g/dL (12.0-16.0); Immature Granulocytes # (auto) 0.04 K/uL (0.00-0.02); Immature Granulocytes % (auto) 0.8 %; Lymphocytes # (auto) 0.79 K/uL (1.2-3.4); Lymphocytes % (auto) 15.3 %; Mean Corpuscular Hemoglobin 35.7 pg (25-34); Mean Corpuscular Hgb Conc 32.5 g/dL (32-36); Mean Corpuscular Volume 109.8 fL (80-100); Mean Platelet Volume 9.7 fL (7.4-10.4); Monocytes # (auto) 0.46 K/uL (0.11-0.59); Monocytes % (auto) 8.9 %; Neutrophils # (auto) 3.77 K/uL (1.4-6.5); Neutrophils % (auto) 73.2 %; Platelet Count 203 K/uL (130-400); RDW Coefficient of Variation 20.1 % (11.5-14.5); RDW Standard Deviation 80.4 fL (36.4-46.3); Red Blood Count 2.66 M/uL (4.2-5.4); White Blood Count 5.15 K/uL (4.8-10.8)
[2021-08-10] MEDS: ONDANSETRON INJ 2 MG/ML 2 ML VIAL IV PRN ×2 (06:25→17:45)
[2021-08-10 06:50] LABS: Anisocytosis Present; Macrocytosis Present; Polychromasia 1+
[2021-08-10] MEDS: INSULIN ASPART 100 UNITS/ML 3 ML PEN SC SCH ×4 (07:41→20:56)
[2021-08-10 07:54] LABS: BUN Creatinine Ratio 19.6 (10-20); Calcium 8.3 mg/dl (8.5-10.1); Creatinine Clr Calc Pharmacy 35.3 ml/min; Est GFR (African American) 36.6 ml/min; Est GFR (Non-African American) 31.6 ml/min; Potassium 3.6 mmol/L (3.5-5.1)
[2021-08-10] MEDS ORDERED: fentaNYL citrate 100 MCG/2 ML VIAL ONE ×2 (09:01→10:53)
--- NOTE | 2021-08-10 09:08 | Gastroenterology Progress Note ---
Date of Service August 10, 2021 Assessment & Plan (1) Dysphagia: Plan: EGD today by Dr. Villareal (2) Nausea & vomiting: (3) Metastatic disease: Plan: 65 y/o female with h/o metastatic ovarian cancer admitted w/ acute saddle PE, GI consulted for dysphagia to solids/liquids. Barium swallow indicated incomplete clearance of contrast from the esophagus. CT imaging concerning for distal esophageal thickening near the GE; ? serosal mets vs esophagitis. EGD today by Dr. Villareal in the OR. Further recommendations to follow endoscopy. Thank you for allowing us to participate in the care of this patient. Please call with any acute changes, questions or concerns. Please see addendum below with additional recommendation from my supervising physician. Admission and Anticipated Discharge Date Admission Date: August 03, 2021 Supervising Physician Co-Signing Physician Notes I performed a history and physical examination of the patient today, including specifically on physical exam - soft abdomen. I have discussed the patient's management with the advanced practitioner. Please refer to the nurse practitioner's note for the documented findings and plan of care. Subjective 65 y/o female with h/o metastatic ovarian cancer admitted w/ acute saddle PE, GI consulted for progressive dysphagia to solids/liquids of one month duration. Barium swallow indicated incomplete clearance of contrast from the esophagus. CT imaging concerning for distal esophageal thickening near the GE; ? serosal mets vs esophagitis. No events overnight. Pt awake, alert this morning, Denies any CP, SOB. HR 80's, Normotensive, afebrile. Hbstable at 9.5. Passing brown soft BMs. Platelets 203. On Lovenox, most recent last evening. Review of Systems Review of Systems: ROS: Gen: + weight loss, + mild weakness; no fevers Eyes: No eye redness, or pain, no recent vision changes Resp: No SOB, no cough Cardio: No palpitations/irregular beats, no chest pain GI: + feels like foods get held up at the base of the neck and/or at the lower chest. No abdominal pain, no nausea/vomiting : Denies pain on urination Skin: No jaundice, itching or new rashes Physical Exam Constitutional: well developed, + ill appearing and cooperative Eyes: PERRL, conjunctivae normal, anicteric sclerae Respiratory: normal respiratory effort and able to speak in complete sentences; no respiratory distress, no labored breathing, does not use accessory muscles and no cough decreased breath sounds in the right lower posteriorly; no adventitious sounds Cardiovascular: RRR, no murmur, no edema Gastrointestinal (Abdomen): normal bowel sounds, soft, nontender, no hepatosplenomegaly Inspection/Auscultation: abdomen normal to inspection and normal bowel sounds; abdomen not distended and no abdominal edema Skin: no rashes, warm and dry normal turgor and + pallor Neurologic: PERRL, EOMI, accommodation nl, no face palsy, no dysarthria awake; not confused Psychiatric: A+Ox3, euthymic affect Orientation: alert, oriented x 3 and cooperative Results & Data ([facility]) Vital Signs (Past 12 Hours) Vital Signs Temp Pulse Pulse Resp BP Pulse Ox 08/10/21 07:56 36.5 C 88 18 117/76 95 08/10/21 07:11 88 08/10/21 01:37 35 C L 89 18 111/75 93 08/09/21 23:22 36.3 C L 106 H 19 127/85 95 08/09/21 23:00 93 H Laboratory Results WBC 5, Hb 9.5, Hct 29.2, Plts 203, Na 138, K 3.6, Cl 108, CO2 20, BUN 33, Cr 1.66, Plats 124. Diagnostic Findings Barium swallow 08/03/21:The patient had no problem initiating the swallowing mechanism. There was no evidence of aspiration. Dysmotility was seen with incomplete clearance of esophageal contents. There was no evidence of strictures, filling defects, or outpouchings. Contrast flowed readily from the esophagus into the stomach. No hiatal hernia was identified. There was no evidence of gastroesophageal reflux. The patient was unable to swallow a 13 mm barium pill. IMPRESSION: Dysphagia is seen with incomplete clearance of contrast from the esophagus. The patient did not attempt swallowing the pill.
--- NOTE | 2021-08-10 09:18 | History & Physical Bridge Note ---
Date of Service August 10, 2021 History & Physical Bridge Note I have examined the patient, reviewed the History & Physical and in the interval since the performance of the History & Physical I have noted the following changes of clinical significance: no changes noted EGD with possible esophageal stent placement. Patient was explained in detail regarding risks, benefits, limitations and alternatives of the above endoscopic procedure. Risks of intravenous sedation used for procedure were also explained. Risks include, but not limited to perforation, bleeding, infection, respiratory distress, cardiac arrest and . Patient is also aware about the possibility of missed lesion. Patient's questions were answered. The patient verbalized understanding the information and agreed to undergo the procedure.
[2021-08-10] MEDS ORDERED: ATROPINE SULFATE 0.1 MG/ML 10ML SYR IV PRN ×2 (09:49→10:54)
[2021-08-10] MEDS ORDERED: ePHEDrine sulfate 50 MG/ML AMP IV PRN ×2 (09:49→10:54)
--- NOTE | 2021-08-10 10:17 | Operative Report ---
Post Operative Report Pre & Post Diagnosis Operation Date: 08/10/21 07:00 Pre-Op Diagnosis: SADDLE EMBOLI Post-Op Diagnosis: SADDLE EMBOLI Operation Date: 08/10/21 08:30 <No data on this case meets the specified criteria> I identified the patient and participated in the time-out.: Yes Procedure Operation Date: 08/10/21 07:00 Actual Procedures p Esophagogastroduodenoscopy(Not Applicable) - Goyo Villareal MD Operation Date: 08/10/21 08:30 <No data on this case meets the specified criteria> Surgeon Goyo Villareal MD Escrow Assistant None Estimated Blood Loss 0 Findings See Below (distal Esophageal stenosis due to submucosal malignant infiltration) Specimens None Description of Procedure EGD with esophageal stent I attest to the content of the Intraoperative Record and any orders documented therein. Any exceptions are noted below.
[2021-08-10] MEDS ORDERED: LIDOCAINE 2% 2 ML VIAL/AMP(20MG/ML) INFIL ONE (10:34)
[2021-08-10] MEDS ORDERED: PROPOFOL IV EMULSION 10 MG/ML 20 ML VIAL IV ONE (10:34)
[2021-08-10] MEDS ORDERED: ONDANSETRON INJ 2 MG/ML 2 ML VIAL ONE (10:34)
--- NOTE | 2021-08-10 10:40 | GI REPORT ---
Patient Name: Ania Hoskins Procedure Date: 08/10/2021 9:10 AM Date of : 1955 Admit Type: Inpatient Age: 65 Gender: Female Attending MD: Goyo Villareal MD Procedure: Upper GI endoscopy Providers: Goyo Villareal MD Referring MD: Misti Zamorano Pa-c Indications: Dysphagia Medicines: Propofol per Anesthesia Complications: No immediate complications. Estimated Blood Loss: Estimated blood loss: none. Procedure: Pre-Anesthesia Assessment: - Prior to the procedure, a History and Physical was performed, and patient medications, allergies and sensitivities were reviewed. The patient's tolerance of previous anesthesia was reviewed. - The risks and benefits of the procedure and the sedation options and risks were discussed with the patient. All questions were answered and informed consent was obtained. - Patient identification and proposed procedure were verified prior to the procedure by the physician and the nurse. The procedure was verified in the procedure room. - Pre-procedure physical examination revealed no contraindications to sedation. After obtaining informed consent, the endoscope was passed under direct vision. Throughout the procedure, the patient's blood pressure, pulse, and oxygen saturations were monitored continuously. The Endoscope was introduced through the mouth, and advanced to the second part of duodenum. The upper GI endoscopy was accomplished without difficulty. The patient tolerated the procedure well. Findings: One extrinsic moderate (circumferential scarring or stenosis; an endoscope may pass) stenosis was found at the gastroesophageal junction with evidence of submucosal infiltration by underlying ovarian malignancy. This stenosis measured 8 mm (inner diameter) x 2 cm (in length). The stenosis was traversed. The Cardia was successfully injected with 2 mL of contrast for fluoroscopic marking. Placement of a long 0.035 inch Stiff Jagwire was attempted. This passed successfully. This was stented with a 20 mm x 12.5 cm Evolution partially covered controlled-release stent with a 25 mm flange under fluoroscopic guidance. For stent fixation, two hemostatic clips were successfully placed. Mildly congested mucosa was found in the gastric body, could also be malignant infiltration. The duodenal bulb and second portion of the duodenum were normal. 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 Esophageal stent was placed. - Gastritis. - Normal duodenal bulb and second portion of the duodenum. - No specimens collected. Recommendation: - [facility]. - Clear liquid diet for 2 days, then advance as tolerated to full liquid diet for 2 days then soft diet. - PO PPI. - There is high risk of stent migration to the stomach due to the nature and etiology of the stenosis. If this happens then patient will need to consider PEG tube placement. Goyo Villareal MD 08/10/2021 10:39:53 AM This report has been signed electronically. Note Initiated On: 08/10/2021 9:10 AM Number of Addenda: 0 I attest to the content of the Intraoperative Record and orders documented therein, exceptions below {[id number]}
[2021-08-10] MEDS ORDERED: fentaNYL citrate 100 MCG/2 ML VIAL IV PRN (10:53)
[2021-08-10] MEDS ORDERED: ONDANSETRON INJ 2 MG/ML 2 ML VIAL IV PRN (10:54)
[2021-08-10] MEDS: fentaNYL citrate 100 MCG/2 ML VIAL IV PRN ×3 (10:59→11:11)
--- NOTE | 2021-08-10 11:15 | Anesthesiology Progress Note ---
Date of Service August 10, 2021 Anesthesia Post Procedure Vital Signs Vital Signs: Temp Pulse Pulse Resp BP BP Pulse Ox 08/10/21 11:07 91 H 18 138/92 98 08/10/21 10:45 93 H 19 150/90 H 98 08/10/21 10:35 92 H 18 129/93 100 08/10/21 10:28 37.1 C 96 H 16 139/87 96 08/10/21 09:17 36.7 C 96 H 18 128/88 95 08/10/21 07:56 36.5 C 88 18 117/76 95 08/10/21 07:11 88 08/10/21 01:37 35 C L 89 18 111/75 93 08/09/21 23:22 36.3 C L 106 H 19 127/85 95 08/09/21 23:00 93 H 08/09/21 19:48 36.7 C 92 H 18 122/84 95 08/09/21 16:00 95 H 08/09/21 15:10 36.7 C 96 H 17 123/84 95 Pain Intensity Chest: Pain Intensity: 6 Tongue: Pain Intensity: 6 Throat: Pain Intensity: 6 Transfer of Care Handoff Completed per policy Notes Mental Status: alert / awake / arousable and participated in evaluation Patient Amnestic to Procedure: Yes Nausea / Vomiting: adequately controlled Pain: adequately controlled Airway Patency, RR, SpO2: stable & adequate BP & HR: stable & adequate Hydration State: stable & adequate Anesthetic Complications: no major complications apparent and Pt Satisfied with anesthetic care
[2021-08-10] MEDS: ENOXAPARIN 80 MG/0.8 ML SYR SQ SCH ×2 (12:52→20:42)
[2021-08-10] MEDS ORDERED: ALUMINUM/MAGNESIUM SUSP 30 ML UDC PO PRN (15:35)
--- NOTE | 2021-08-10 16:13 | Pulmonology Progress Note ---
Date of Service August 10, 2021 Assessment & Plan (1) Acute saddle pulmonary embolism: Plan: Impression: 65-year-old female with metastatic ovarian cancer initially admitted to ICU with saddle PE. There was no right heart strain and patient was only tr eated with heparin drip and downgraded on 08/04/2021 --Acute hypoxic respiratory failure Secondary to acute saddle PE CT chest showed extensive bilateral pulmonary emboli including a saddle embolus with mild right heart strain, small right lower lobe pulmonary infarct. Interval progression of metastatic disease within the chest abdomen pelvis was also noted -TTE without evidence of cor pulmonale and troponin negative, hemodynamically stable, no current indication for lysis Plan: Patient tolerated the esophageal stent placement well She was saturating 94% on room air after the procedure Rest of the management as per the primary team Recommend lifelong anticoagulation given the patient has metastatic cancer Lovenox would be preferred No further recommendation from pulmonary perspective. Will sign off. Please call directly with any questions Please note the above document was generated using voice recognition software. It may contain grammatical, syntax or spelling errors.Any formal questions or concerns about the content, text or information contained within the body of this dictation should be directly addressed to the provider for clarification. Acute cor pulmonale presence: with acute cor pulmonale Qualified Code(s): I26.02 - Saddle embolus of pulmonary artery with acute cor pulmonale (2) Metastatic disease: (3) Acute respiratory failure with hypoxia: Admission and Anticipated Discharge Date Admission Date: August 03, 2021 Subjective Patient seen and examined at bedside. Patient is status post OR and stent placement in the esophagus She denied any shortness of breath She has been complaining of nausea and vomiting which is especially worse after getting pain medication Denies any significant chest pain Was not able to tolerate anything by mouth so far She was saturating 94% room air at the time of examination Review of Systems Review of Systems: All systems reviewed & are unremarkable except as noted in Subjective Physical Exam Physical Exam: Constitutional: No acute distress HEENT: EOMI, PERRLA Respiratory system: Decreased air entry bilaterally, no wheeze, no rhonchi, no crackles CVS: S1-S2 positive, no murmurs or gallops, right-sided Port-A-Cath Abdomen: Soft, nontender, nondistended, positive bowel sounds x4 Extremities: +2 pulses bilaterally radialis/ dorsalis pedis, no cyanosis, no edema Neuro: Awake alert oriented x3 Psych: Normal mood and affect G/U: No Chan Skin: no rashes, warm and dry Lymphatic: no cervical or axillary lymphadenopathy Results & Data Results & Data ([facility]) Vital Signs (Past 12 Hours) Vital Signs Temp Pulse Pulse Resp BP BP Pulse Ox 08/10/21 15:42 36.5 C 88 17 122/87 96 08/10/21 12:30 37 C 88 16 137/72 98 08/10/21 11:35 36.4 C L 92 H 19 139/78 97 08/10/21 11:25 92 H 19 140/94 98 08/10/21 11:15 93 H 20 127/77 98 08/10/21 11:05 91 H 15 129/84 98 08/10/21 10:55 91 H 18 138/92 98 08/10/21 10:45 93 H 19 150/90 H 98 08/10/21 10:35 92 H 18 129/93 100 08/10/21 10:28 37.1 C 96 H 16 139/87 96 08/10/21 09:17 36.7 C 96 H 18 128/88 95 08/10/21 07:56 36.5 C 88 18 117/76 95 08/10/21 07:11 88 08/10/21 05:49 08/10/21 05:49 PG Care Time/CCT Total # of Minutes Spent Total Time Spent with Patient: Total time spent is greater than 50% in coordination of care (as documented) at patient's floor/unit and/or counseling patient: Coding Level of Care Code 78017 Subseq Hosp Care Lvl 2 Diagnoses Acute saddle pulmonary embolism I26.02 Acute cor pulmonale presence: with acute cor pulmonale Metastatic disease C79.9 Acute respiratory failure with hypoxia J96.01
--- NOTE | 2021-08-10 16:56 | Hospitalist Progress Note ---
Date of Service August 10, 2021 Assessment & Plan (1) Acute saddle pulmonary embolism: Plan: Acute Saddle Pulmonary Embolism per SHARITA Rojas's notes with addendum: -Admit to ICU -Patient presenting by referral of outpatient oncologist after scheduled CT chest/ABD/pelvis showed acute saddle pulmonary embolism with mild right heart strain -In the ED, patient is hemodynamically stable and saturating well on room air -IV heparin has been started 08/10/2021 remains stable overall BP and respiratory status stable no hypoxia, even with ambulation echo: no pulmonary hypertension, RV function normal Oncologist Dr. Rose recommends to transition to Lovenox BID x 1 month, then NOACs as outpatient tolerating Lovenox Dysphagia to solids - Ba swallow: Dysphagia is seen with incomplete clearance of contrast from the esophagus. The patient did not attempt swallowing the pill. - Speech Eval: Esoph dysmotility - on regular diet did not tolerate solids or liquids today - CT abd/pelv: Thickening of the distal esophagus near the gastroesophageal junction consistent with a serosal deposit of metastatic disease. - GI consulted trial of Protonix IV drip done over the weekend Still having dysphagia Status post EGD today: Positive esophageal stenosis, stent placed Clear liquids x2 days, full liquids x2 days per GI Continue to monitor Bilateral pleural Effusion -3 days ago patient was reporting dyspnea on exertion Repeat chest x-ray showing bilateral pleural effusion, Likely from IV fluids, Protonix - d/c IV fluids Given 2 doses of Lasix 20 mg IV for the past 2 days However creatinine is increasing to 1.6 Hold Lasix today We will consult nephrology (2) Ovarian ca: (3) Metastatic disease: Plan: -Initial diagnosis in 2013 -Current treatment plan is p.o. Votrient -however on hold due to recent fatigue -Follows with Dr. Weinberg and Misti Zamorano PA-C -Unfortunately CT shows progression of disease (4) Diabetes mellitus, type 2: Plan: -Hgb A1c 5.4 03/2021 -Hold oral agents, NovoLog per protocol while hospitalized (5) CKD (chronic kidney disease), stage III: Plan: -Baseline creatinine runs in the low 1's -Creatinine 1.5 on admission - crea 1.4 (+) pleural effusion patient reports dyspnea on exertion monitor (6) DVT prophylaxis: Plan: -On IV heparin as above Disposition Pending anticipate discharge to home medically stable Admission and Anticipated Discharge Date Admission Date: August 03, 2021 Subjective Follow-up for acute PE, severe dysphagia, etc. Seen sitting up in bed, comfortable, not in distress Still has some dyspnea on exertion, but no chest pain No bleeding Only tolerating some liquids No abdominal pain or nausea this morning Awaiting EGD this morning No other symptoms Review of Systems Review of Systems: all noted and negative except for above Physical Exam Physical Exam: General- oriented x 3, not in distress, speaks in sentences with no effort or accessory muscle use Eyes- anicteric Neck- no JVD Lungs-mild decreased breath sounds at the bases, no wheezing Heart- normal rate, regular rhythm; no murmurs Abdomen- normal bowel sounds, nondistended, soft, nontender Extremities-mild pretibial edema, no calf tenderness Neuro- alert, oriented x 3; no gross focal neurologic deficits Skin- warm & dry Results & Data Results & Data ([facility]) Vital Signs (Past 12 Hours) Vital Signs Temp Pulse Pulse Resp BP BP Pulse Ox 08/10/21 15:42 36.5 C 88 17 122/87 96 08/10/21 12:30 37 C 88 16 137/72 98 08/10/21 11:35 36.4 C L 92 H 19 139/78 97 08/10/21 11:25 92 H 19 140/94 98 08/10/21 11:15 93 H 20 127/77 98 08/10/21 11:05 91 H 15 129/84 98 08/10/21 10:55 91 H 18 138/92 98 08/10/21 10:45 93 H 19 150/90 H 98 08/10/21 10:35 92 H 18 129/93 100 08/10/21 10:28 37.1 C 96 H 16 139/87 96 08/10/21 09:17 36.7 C 96 H 18 128/88 95 08/10/21 07:56 36.5 C 88 18 117/76 95 08/10/21 07:11 88 all noted and reviewed including below (1) Acute saddle pulmonary embolism Acute cor pulmonale presence: with acute cor pulmonale Qualified Code(s): I26.02 - Saddle embolus of pulmonary artery with acute cor pulmonale (2) Ovarian ca Laterality: unspecified laterality Qualified Code(s): C56.9 - Malignant neoplasm of unspecified ovary
[2021-08-10] MEDS ORDERED: PROMETHAZINE HCL 12.5 MG in SODIUM CHLORIDE 0.9% 50 ML IV STA (17:55)
[2021-08-10] MEDS ORDERED: FOSAPREPITANT DIMEGLUMINE 115 MG in 0.9 % SODIUM CHLORIDE 111.1667 ML IV ONE (18:15)
[2021-08-10] MEDS ORDERED: LORazepam 0.25 MG/0.5 ML VIAL IV STA (20:56)
[2021-08-10] MEDS ORDERED: PANTOprazole 40 MG in SYRINGE 0 ML IV STA (20:56)
--- NOTE | 2021-08-10 21:13 | Consultation Report ---
NEPHROLOGY CONSULTATION NOTE DATE OF CONSULTATION: 08/10/2021. REASON FOR CONSULTATION: Acute renal failure. HISTORY OF PRESENT ILLNESS: The patient is a 65-year-old female who was admitted 6 days ago when she presented to the hospital because of some shortness of breath. She had an outpatient CT chest, abdomen and pelvis, which showed acute saddle pulmonary embolism with mild right heart strain. She did receive IV contrast on that day. 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 At this time, the patient does not appear to be in any major shortness of breath and is not even requiring any oxygen. She just had a GI procedure done and came from the operating room, and she is having some nausea and vomiting. She had EGD under sedation and esophageal stent placement. Because of the metastatic cancer, she has not been able to eat and is getting very malnourished. Creatinine 4 days ago was at baseline of 1.2 and since then has slowly gone up to 1.66 over a span of 4 days. She is making urine and in a 24-hour time period yesterday, she made 1020 mL of urine. 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 ALLERGIES: None. MEDICATIONS: Home medication list was reviewed in detail and it includes metformin, simvastatin, zolpidem, Compazine, olanzapine, oxycodone, Protonix, prednisone, lisinopril. Her current inpatient list was also reviewed in detail. She did have one dose of Lasix yesterday. FAMILY HISTORY: Negative for renal disease or dialysis. SOCIAL HISTORY: Former smoker, quit 20 years ago. She lives by herself at this time. She is not on any oxygen. No alcohol use. REVIEW OF SYSTEMS: As detailed in HPI, unless stated otherwise 12 systems reviewed and negative. Currently positive review of systems includes nausea, vomiting, some abdominal discomfort and some shortness of breath. PHYSICAL EXAMINATION: GENERAL: Elderly white female who looks lot older than her stated age. She appears malnourished. She is awake, alert and oriented. VITAL SIGNS: Blood pressure is 139/78, pulse rate 90-97% on 2 liter nasal cannula, respiratory rate 19. HEENT: Mucous membrane is dry. NECK: Supple. No jugular venous distention. CHEST: Bilateral decreased breath sounds at the bases. HEART: S1 and S2, regular. ABDOMEN: Distended with significant ascites. EXTREMITIES: Show 1+ edema in the right and trace on the left abdominal wall edema. NEUROLOGIC: Awake, alert and oriented. Moving all 4 extremities. LABORATORY TEST: Hemoglobin 9.5, platelet count 203, creatinine was 1.2 four days ago and since then steadily going up and this morning is 1.66, BUN is 33, chloride 108, bicarbonate 20. Sodium 138, potassium 3.6. Chest x-ray shows bilateral small pleural effusion. ASSESSMENT AND PLAN: A 65-year-old female with metastatic ovarian cancer and is very widespread, now admitted with acute saddle pulmonary embolism and right lower extremity deep venous thrombosis. I have been consulted for rising creatinine/acute renal failure. Acute renal failure: Creatinine was 1.2 four days ago and since then it has slowly gone up to 1.66. Considering that she has fairly massive pulmonary embolism, contrast exposure, Lasix exposure in a very susceptible patient, current rise of creatinine is to be expected. There was also mention of mild hydronephrosis on the CT scan, but I doubt this is the predominant cause as creatinine usually goes up very fast in case of hydronephrosis. I would continue to hold lisinopril and metformin. I do not think she needs any Lasix at this time, nor any IV fluid. Continue to do daily labs. I will continue to follow. expect the creat to rise in the coming days. Job ID: [id number] [facility]
[2021-08-10] MEDS: PANTOprazole 40 MG TAB PO SCH (21:50)
[2021-08-10] MEDS: SIMVASTATIN 20 MG TAB PO SCH (21:50)
[2021-08-11] MEDS: OLANZAPINE 2.5 MG TAB PO SCH ×2 (00:14→20:43)
[2021-08-11] MEDS: ZOLPIDEM TARTRATE 10 MG TAB PO SCH ×2 (00:14→20:42)
[2021-08-11] MEDS: ONDANSETRON INJ 2 MG/ML 2 ML VIAL IV PRN ×2 (03:14→10:57)
[2021-08-11 07:57] LABS: BUN Creatinine Ratio 20.4 (10-20); Calcium 8.6 mg/dl (8.5-10.1); Creatinine Clr Calc Pharmacy 32.3 ml/min; Est GFR (African American) 32.9 ml/min; Est GFR (Non-African American) 28.4 ml/min; Potassium 3.8 mmol/L (3.5-5.1)
[2021-08-11] MEDS: INSULIN ASPART 100 UNITS/ML 3 ML PEN SC SCH ×4 (08:02→21:32)
--- NOTE | 2021-08-11 09:49 | Nephrology Progress Note ---
Date of Service August 11, 2021 Assessment & Plan Admission and Anticipated Discharge Date Admission Date: August 03, 2021 Subjective No new issues. Feels weak. PHYSICAL EXAMINATION: GENERAL: Elderly white female who looks lot older than her stated age. She appears malnourished. She is awake, alert and oriented. HEENT: Mucous membrane is dry. NECK: Supple. No jugular venous distention. CHEST: Bilateral decreased breath sounds at the bases. HEART: S1 and S2, regular. ABDOMEN: Distended with significant ascites. EXTREMITIES: Show 1+ edema in the right and trace on the left abdominal wall edema. NEUROLOGIC: Awake, alert and oriented. Moving all 4 extremities. LABORATORY TEST: Creat up a bit to 1.8 today ASSESSMENT AND PLAN: A 65-year-old female with metastatic ovarian cancer and is very widespread, now admitted with acute saddle pulmonary embolism and right lower extremity deep venous thrombosis. I have been consulted for rising creatinine/acute renal failure. Acute renal failure: Creatinine was 1.2 four days ago and since then it has slowly gone up to 1.8 today. Considering that she has fairly massive pulmonary embolism, contrast exposure, Lasix exposure in a very susceptible patient, current rise of creatinine is to be expected. There was also mention of mild hydronephrosis on the CT scan, but I doubt this is the predominant cause as creatinine usually goes up very fast in case of hydronephrosis. I would continue to hold lisinopril and metformin. I do not think she needs any Lasix at this time, nor any IV fluid. Continue to do daily labs. I will continue to follow. expect the creat to rise in the coming days bu hopefully will peak soon and starts improving Results & Data ([facility]) Vital Signs (Past 12 Hours) Vital Signs Temp Pulse Pulse Resp BP Pulse Ox 08/11/21 07:43 35.0 C L 95 H 18 124/83 94 08/11/21 03:10 36.3 C L 98 H 20 100/74 93 08/10/21 23:37 36.5 C 90 18 108/73 94 08/10/21 23:00 97 H
[2021-08-11] MEDS: ENOXAPARIN 80 MG/0.8 ML SYR SQ SCH ×2 (09:55→20:42)
[2021-08-11] MEDS: PANTOprazole 40 MG TAB PO SCH ×2 (10:39→20:43)
[2021-08-11] MEDS ORDERED: CALCIUM CARBONATE 500 MG CHEWABLE TAB PO ONE (10:51)
[2021-08-11] MEDS: PROMETHAZINE HCL 12.5 MG in SODIUM CHLORIDE 0.9% 50 ML IV PRN ×2 (15:23→22:14)
--- NOTE | 2021-08-11 17:03 | CT Scan Report ---
CT chest diagnostic wo con CT DOSE: 237.27 mGy.cm HISTORY: Follow-up pleural effusion TECHNIQUE: Multiaxial CT images of the chest were performed without contrast. A dose lowering techni que was utilized adhering to the principles of ALARA. COMPARISON: Chest CT 08/03/2021. FINDINGS: Mild respiratory motion artifact. The central airways are patent. No pneumothorax. Stable 1 cm tubular density seen within the lateral segmental bronchus of the right middle lobe best seen on image 111. Increase in size in the small bilateral pleural effusions. Opacities within the bilateral lower lobes have also progressed and may represent compressive atelectasis from the pleural effusions . No pneumothorax. No suspicious lytic or blastic osseous lesions. Limited views the upper abdomen de monstrate progressive moderate ascites and multiple metastatic lesions within the liver and spleen. O mental/peritoneal spread of tumor within the upper abdomen is again noted. There is persistent thicke saurabh at the gastroesophageal junction with interval placement of a distal esophageal stent with trave rses the area of thickening. The stent is fluid-filled. The distal portion of the stent is not entire ly included on this study. The proximal to mid esophagus is also mildly distended and filled with flu id and gas. Normal caliber thoracic aorta. The heart is normal in size. Small anterior diaphragmatic lymph nodes remain unchanged. IMPRESSION: 1. Slight increase in size in the small bilateral pleural fusions and moderate ascites. 2. Metastatic disease within the chest and abdomen is again noted. 3. Interval placement of a distal esophageal stent which traverses the area of thickening at the ramona roesophageal junction. The stent is fluid-filled. The proximal esophagus is also mildly distended and fluid-filled. Therefore, this raises the possibility of a partial stent obstruction. Of note, the di stal portion of the stent is not included on this study. 4. Stable 1 cm tubular density within the lateral segmental bronchus of the right middle lobe. This f avors a partially impacted bronchus. However, this bears watching on future examinations. ACT 112: Negative or not required by law. Electronically signed by: Cas Arcos M.D. 08/11/2021 5:02 PM
[2021-08-11] MEDS ORDERED: METOCLOPRAMIDE HCL INJ 5 MG/ML 2 ML VIAL IV PRN (17:39)
[2021-08-11] MEDS ORDERED: LORazepam 0.5 MG TAB PO PRN (19:32)
[2021-08-11] MEDS: SIMVASTATIN 20 MG TAB PO SCH (20:43)
--- NOTE | 2021-08-11 23:46 | Hospitalist Progress Note ---
Date of Service August 11, 2021 Assessment & Plan (1) Acute saddle pulmonary embolism: Plan: Acute Saddle Pulmonary Embolism Present on admission notified by outpatient oncology after obtaining CTA chest due to worsening shortness of breath that showed acute saddle pulmonary embolism mild right heart strain In the ED, patient is hemodynamically stable and saturating well on room air Patient was admitted in the ICU for close monitor In the ED, patient is hemodynamically stable and saturating well on room air She was started on IV heparin drip and transition to Lovenox as per oncology Dr. Rose Oncologist Dr. Rose recommended to transition to Lovenox BID x 1 month, then NOACs as outpatient Clinically stable Dysphagia to solids -Ba swallow: Dysphagia is seen with incomplete clearance of contrast from the e sophagus. The patient did not attempt swallowing the pill. -Speech Eval: Esoph dysmotility - CT abd/pelv: Thickening of the distal esophagus near the gastroesophageal junction consistent with a serosal deposit of metastatic disease. - GI consulted - Status post EGD donewith Positive esophageal stenosis, stent placed -GI recommended clear liquids x2 days, full liquids x2 days per GI -Continue to have worsening nausea -Repeat CT abdomen/pelvis Interval placement of a distal esophageal stent which traverses the area of thickening at the gastroesophageal junction. The stent is fluid-filled. The proximal esophagus is also mildly distended and fluid-filled. Therefore, this raises the possibility of a partial stent obstruction. Of note, the distal portion of the stent is not included on this study. CT finding discussed with GI Dr. Quintanilla that recommended to continue monitor for worsening GI symptoms Continue clear liquid diet Bilateral pleural Effusion Repeat chest x-ray showing bilateral pleural effusion, CT chest showed Slight increase in size in the small bilateral pleural fusions and moderate ascites. Given 2 doses of Lasix 20 mg IV for the past 2 days, However creatinine is increasing to 1.8 Hold Lasix today Nephrology on board for fluid management Continue to hold Lasix for now (2) Ovarian ca: (3) Metastatic disease: Plan: -Initial diagnosis in 2013 -Current treatment plan is p.o. Votrient -however on hold due to recent fatigue -Follows with Dr. Weinberg and Misti Zamorano PA-C -Unfortunately CT shows progression of disease (4) Diabetes mellitus, type 2: Plan: -Hgb A1c 5.4 03/2021 -Hold oral agents, NovoLog per protocol while hospitalized (5) CKD (chronic kidney disease), stage III: Plan: ANNIE on CKD stage III -Baseline creatinine runs in the low 1's -Creatinine 1.5 on admission Creatinine worsening to 1.8 today Continue to hold Lasix, lisinopril and Metformin Nephrology on board (6) DVT prophylaxis: Plan: -On IV heparin as above Disposition Pending anticipate discharge to home medically stable Admission and Anticipated Discharge Date Admission Date: August 03, 2021 Subjective Patient was seen and examined for follow-up of nausea and vomiting Lying in bed in no acute distress Patient said she continues to have severe nausea She said Zofran, emend and Phenergan does not help She said she is having mild abdominal discomfort Denies any chest pain, palpitation, dizziness, shortness of breath. Review of Systems Review of Systems: All systems reviewed & are unremarkable except as noted in Subjective Physical Exam Physical Exam: General- No acute distress Head- atraumatic Eyes- PERRL, EOMI, ENT- oropharynx clear Neck- supple, no JVD Lungs- clear to auscultation Heart- regular rhythm; no murmur Abdomen- normal bowel sounds, soft, +mild tender with palpation Extremities- RLE edema Neuro- alert, oriented x 3; PERRL, EOMI; no facial palsy; no dysarthria Skin- warm & dry Results & Data Results & Data ([facility]) Vital Signs (Past 12 Hours) Vital Signs Temp Pulse Pulse Resp BP Pulse Ox 08/11/21 23:07 36.6 C 100 H 18 111/75 93 08/11/21 19:22 36.6 C 100 H 18 133/86 96 08/11/21 16:00 103 H 08/11/21 15:16 36.4 C L 103 H 16 114/75 95 (1) Ovarian ca Laterality: unspecified laterality Qualified Code(s): C56.9 - Malignant neoplasm of unspecified ovary (2) Acute saddle pulmonary embolism Acute cor pulmonale presence: with acute cor pulmonale Qualified Code(s): I26.02 - Saddle embolus of pulmonary artery with acute cor pulmonale
[2021-08-12] MEDS: ONDANSETRON INJ 2 MG/ML 2 ML VIAL IV PRN (04:22)
[2021-08-12] MEDS: PROMETHAZINE HCL 12.5 MG in SODIUM CHLORIDE 0.9% 50 ML IV PRN (07:21)
[2021-08-12 07:52] LABS: Hematocrit (blood only) 32.2 % (37-47); Hemoglobin 10.6 g/dL (12.0-16.0); Mean Corpuscular Hemoglobin 35.6 pg (25-34); Mean Corpuscular Hgb Conc 32.9 g/dL (32-36); Mean Corpuscular Volume 108.1 fL (80-100); Mean Platelet Volume 9.9 fL (7.4-10.4); Nucleated RBC # (auto) 0.03 K/uL (0-0); Nucleated RBC % (auto) 0.3 %; Platelet Count 256 K/uL (130-400); RDW Coefficient of Variation 20.4 % (11.5-14.5); RDW Standard Deviation 79.2 fL (36.4-46.3); Red Blood Count 2.98 M/uL (4.2-5.4)
[2021-08-12 08:38] LABS: BUN Creatinine Ratio 19.8 (10-20); Calcium 8.6 mg/dl (8.5-10.1); Creatinine Clr Calc Pharmacy 24.3 ml/min; Est GFR (African American) 23.4 ml/min; Est GFR (Non-African American) 20.2 ml/min; Potassium 4.2 mmol/L (3.5-5.1)
[2021-08-12 08:45] LABS: Albumin Globulin Ratio 0.5 (0.9-2); Bilirubin,Total 0.5 mg/dl (0.2-1); Globulin 3.9 gm/dl (2.5-4.0); Total Protein 5.9 gm/dl (6.4-8.2)
[2021-08-12] MEDS ORDERED: FOSAPREPITANT DIMEGLUMINE 115 MG in 0.9 % SODIUM CHLORIDE 111.1667 ML IV ONE (08:56)
--- NOTE | 2021-08-12 08:57 | Communication Note ---
Date of Service: August 12, 2021 Pt was seen this AM for persistent nausea,vomiting and fluid filled stent. She believes her symptoms are secondary to medication reaction from analgesia. She is now feeling better. Last emesis was around 0500. Is hungry and started clear tray this AM. Tolerated so far. Wants to go home. Recommend dose of emend. If nausea/vomiting improved, no GI contraindication to stent diet as tolerated and discharge home.
[2021-08-12] MEDS ORDERED: FOSAPREPITANT DIMEGLUMINE 150 MG in SODIUM CHLORIDE 0.9% 145 ML IV ONE (09:45)
[2021-08-12] MEDS: ENOXAPARIN 80 MG/0.8 ML SYR SQ SCH (10:39)
[2021-08-12] MEDS: PANTOprazole 40 MG TAB PO SCH (10:39)
[2021-08-12] MEDS: INSULIN ASPART 100 UNITS/ML 3 ML PEN SC SCH ×2 (11:16→13:02)
--- NOTE | 2021-08-12 12:00 | Progress Notes ---
HEMATOLOGY PROGRESS NOTE DATE OF SERVICE: 08/12/2021 DIAGNOSES: 1. Bilateral pulmonary emboli with saddle embolus. 2. Metastatic ovarian cancer with disease progression following multiple lines of treatment. 3. Acute right lower extremity deep venous thrombosis and chronic left lower extremity deep venous thrombosis. 4. Dysphagia secondary to esophageal stenosis due to submucosal malignant infiltration, status post stent placement. SUBJECTIVE: Ania states that she has been feeling a lot better since stent was placed on 08/10/2021. She is able to tolerate liquids now without nausea or vomiting. Yesterday, she had several episodes of nausea and vomiting, possibly due to a reaction from medication given prior to stent placement. She denies shortness of breath, chest pain or any other symptoms. Kidney function continues to worsen possibly pre renal/ contrast induced for which nephrology has been consulted OBJECTIVE: GENERAL: A middle-aged lady, sitting up in bed, in no obvious respiratory or painful distress. VITAL SIGNS: Blood pressure 115/79, pulse rate 100, respiratory rate 18, temperature 36.4, saturating 92% on room air. LABORATORY DATA: White cell count 11,000, hemoglobin 10.6, hematocrit 32.2, platelet count 256. Chemistry: Sodium 136, potassium 4.2, chloride 108, carbon dioxide 19, BUN 48 with creatinine of 2.4. IMPRESSION: 1. Gastroesophageal junction stenosis secondary to malignant infiltration, status post stent placement on 08/10/2021. 2. Extensive bilateral pulmonary embolism with saddle embolus. 3. Bilateral deep venous thrombosis. 4. Metastatic ovarian cancer with disease progression. 5. Acute kidney injury likely pre renal / BENJI PLAN: Given worsening kidney function and since Lovenox is renally cleared , it would be reasonable to switch from Lovenox to therapeutic dosing of apixaban 5mg po B.I.D most especially since PE symptoms have significantly improved in preparation for discharge. She is scheduled to be seen in oncology clinic on 08/18/2021 to start systemic therapy with paclitaxel. Thank you. Please feel free to call if you have any further questions. Job ID: [id number] [facility]
--- NOTE | 2021-08-12 15:02 | Hospitalist Progress Note ---
Date of Service August 12, 2021 Assessment & Plan (1) Acute saddle pulmonary embolism: Plan: Acute Saddle Pulmonary Embolism Present on admission notified by outpatient oncology after obtaining CTA chest due to worsening shortness of breath that showed acute saddle pulmonary embolism mild right heart strain In the ED, patient is hemodynamically stable and saturating well on room air Patient was admitted in the ICU for close monitor In the ED, patient is hemodynamically stable and saturating well on room air She was started on IV heparin drip and transition to Lovenox as per oncology Dr. Rose Oncologist Dr. Rose recommended to transition to Lovenox BID x 1 month, then NOACs as outpatient Due to worsening renal function, case discussed with Oncology Dr. Rose that recommended to discontinue lovenox and switching to therapeutic dosing of apixaban Follow up with Oncology outpatient Dysphagia to solids -Ba swallow: Dysphagia is seen with incomplete clearance of contrast from the esophagus. The patient did not attempt swallowing the pill. -Speech Eval: Esoph dysmotility - CT abd/pelv: Thickening of the distal esophagus near the gastroesophageal junction consistent with a serosal deposit of metastatic disease. - GI consulted - Status post EGD donewith Positive esophageal stenosis, stent placed -GI recommended clear liquids x2 days, full liquids x2 days per GI -Continue to have worsening nausea -Repeat CT abdomen/pelvis Interval placement of a distal esophageal stent which traverses the area of thickening at the gastroesophageal junction. The stent is fluid-filled. The proximal esophagus is also mildly distended and fluid-filled. Therefore, this raises the possibility of a partial stent obstruction. Of note, the distal portion of the stent is not included on this study. CT finding discussed with GI Dr. Quintanilla that recommended to continue monitor for worsening GI symptoms Tolerated clear liquid diet, will advanced as tolerated Bilateral pleural Effusion Repeat chest x-ray showing bilateral pleural effusion, CT chest showed Slight increase in size in the small bilateral pleural fusions and moderate ascites. Given 2 doses of Lasix 20 mg IV for the past 2 days, However creatinine is increasing to 1.8 Hold Lasix today Nephrology on board for fluid management Continue to hold Lasix for now (2) Ovarian ca: (3) Metastatic disease: Plan: -Initial diagnosis in 2013 -Current treatment plan is p.o. Votrient -however on hold due to recent fatigue -Follows with Dr. Weinberg and Misti Zamorano PA-C -Unfortunately CT shows progression of disease (4) Diabetes mellitus, type 2: Plan: -Hgb A1c 5.4 03/2021 -Hold oral agents, NovoLog per protocol while hospitalized (5) CKD (chronic kidney disease), stage III: Plan: ANNIE on CKD stage III -Baseline creatinine runs in the low 1's -Creatinine 1.5 on admission -Creatinine worsening from 1.8 to 2.4 today - Continue to hold Lasix, lisinopril and Metformin - Pt does not want to stay longer in the hospital event though creatinine worsening - Nephrology does not feel comfortable as well to for her to discharge - She will sign AMA - Pt was advised to check her BMP in 1 to 2 days (6) DVT prophylaxis: Plan: - Lovenox, will transition to Eliquis Disposition Pt signed AMA Admission and Anticipated Discharge Date Admission Date: August 03, 2021 Subjective Patient was seen and examined for follow-up of nausea and vomiting Sitting in chair with no distress with daughter at bedside Pt said that she feels much better today She said that she was able to tolerate diet She is very anxious to go home today even though her creatinine continues to climb with 2.4 today Spoke to nephrology and would like her to stay in the hospital until creatinine trending down Pt refused to stay and plan to sign AMA Denies any chest pain, palpitation, dizziness, shortness of breath. Review of Systems Review of Systems: All systems reviewed & are unremarkable except as noted in Subjective Physical Exam Physical Exam: General- No acute distress Head- atraumatic Eyes- PERRL, EOMI, ENT- oropharynx clear Neck- supple, no JVD Lungs- clear to auscultation Heart- regular rhythm; no murmur Abdomen- normal bowel sounds, soft, nontender Extremities- RLE edema Neuro- alert, oriented x 3; PERRL, EOMI; no facial palsy; no dysarthria Skin- warm & dry Results & Data Results & Data ([facility]) Vital Signs (Past 12 Hours) Vital Signs Temp Pulse Pulse Resp BP Pulse Ox 08/12/21 08:00 100 H 08/12/21 03:19 36.4 C L 99 H 18 115/79 92 (1) Ovarian ca Laterality: unspecified laterality Qualified Code(s): C56.9 - Malignant neoplasm of unspecified ovary (2) Acute saddle pulmonary embolism Acute cor pulmonale presence: with acute cor pulmonale Qualified Code(s): I26.02 - Saddle embolus of pulmonary artery with acute cor pulmonale
[2021-08-12] MEDS ORDERED: APIXABAN 5 MG TABLET PO SCH (21:00)
--- NOTE | 2021-08-25 09:43 | Discharge Summary ---
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 Patient reports being diagnosed with bronchitis a few weeks ago. She was placed on Augmentin. She reports improvement in cough however shortness of breath has gotten worse. She reports ongoing fatigue and poor appetite. She was placed on prednisone to try and stimulate her appetite which did not help. She was also told to hold Votrient for two weeks to see if that would improve her symptoms as well. Patient denies chest pain. No lightheadedness, dizziness, diaphoresis, or syncopal events. No abdominal pain, vomiting, or diarrhea. Denies fever and chills. No urinary symptoms. In the ED, patient is hemodynamically stable. She was started on IV heparin. Admission Exam Per Admitting Provider NAD, well developed Card: Normal S1/S2, no murmur Lungs: R sided chest port in place, CTA Abd: mild distention, soft and NT LE: mild pitting edema of the RLE but no erythema or warmth Psych: AAOx3 Principal Diagnosis Acute saddle pulmonary embolism: Dysphagia to solids Bilateral pleural Effusion Diabetes mellitus, type 2: ANNIE on CKD stage III Discharge Exam General- No acute distress Head- atraumatic Eyes- PERRL, EOMI, ENT- oropharynx clear Neck- supple, no JVD Lungs- clear to auscultation Heart- regular rhythm; no murmur Abdomen- normal bowel sounds, soft, nontender Extremities- RLE edema Neuro- alert, oriented x 3; PERRL, EOMI; no facial palsy; no dysarthria Skin- warm & dry Discharge Data Allergies Allergy/AdvReac Type Severity Reaction Status Date / Time No Known Allergies Allergy Verified 08/12/21 22:17 Consultations 08/03/21 15:06 ED Decision to Admit Stat 08/03/21 18:24 Consult Barrel Assembly Inspector Routine 08/06/21 13:33 Consult Gastroenterology Routine 08/09/21 08:28 Consult Pulmonology Routine 08/10/21 07:54 Consult Nephrology Routine Procedures Performed Operation Date: 08/10/21 07:00 Actual Procedures p Esophagogastroduodenoscopy(Not Applicable) - Goyo Villareal MD Operation Date: 08/10/21 08:30 <No data on this case meets the specified criteria> Ordered Studies 08/03/21 16:04 US venous doppler LE BI Routine 08/05/21 13:45 FL barium swallow Routine 08/10/21 07:56 CT chest diagnostic wo con Routine 08/10/21 09:30 FL esophageal dilatation Routine CT chest diagnostic wo con CT DOSE: 237.27 mGy.cm HISTORY: Follow-up pleural effusion TECHNIQUE: Multiaxial CT images of the chest were performed without contrast. A dose lowering technique was utilized adhering to the principles of ALARA. COMPARISON: Chest CT 08/03/2021. FINDINGS: Mild respiratory motion artifact. The central airways are patent. No pneumothorax. Stable 1 cm tubular density seen within the lateral segmental bronchus of the right middle lobe best seen on image 111. Increase in size in the small bilateral pleural effusions. Opacities within the bilateral lower lobes have also progressed and may represent compressive atelectasis from the pleural effusions. No pneumothorax. No suspicious lytic or blastic osseous lesions. Limited views the upper abdomen demonstrate progressive moderate ascites and multiple metastatic lesions within the liver and spleen. Omental/peritoneal spread of tumor within the upper abdomen is again noted. There is persistent thickening at the gastroesophageal junction with interval placement of a distal esophageal stent with traverses the area of thickening. The stent is fluid-filled. The distal portion of the stent is not entirely included on this study. The proximal to mid esophagus is also mildly distended and filled with fluid and gas. Normal caliber thoracic aorta. The heart is normal in size. Small anterior diaphragmatic lymph nodes remain unchanged. IMPRESSION: 1. Slight increase in size in the small bilateral pleural fusions and moderate ascites. 2. Metastatic disease within the chest and abdomen is again noted. 3. Interval placement of a distal esophageal stent which traverses the area of thickening at the gastroesophageal junction. The stent is fluid-filled. The proximal esophagus is also mildly distended and fluid-filled. Therefore, this raises the possibility of a partial stent obstruction. Of note, the distal portion of the stent is not included on this study. 4. Stable 1 cm tubular density within the lateral segmental bronchus of the right middle lobe. This favors a partially impacted bronchus. However, this bears watching on future examinations. ACT 112: Negative or not required by law. Electronically signed by: Cas Arcos M.D. 08/11/2021 5:02 PM Dictated:08/11/218 Transcribed: 08/11/211647 XR chest 1V portable CLINICAL HISTORY: shortness of breath, r/o pulmonary edema, effusion TECHNIQUE: Single frontal radiograph of the chest was obtained. Comparison: None available at the time of this dictation. FINDINGS: Right portacatheter is seen. The cardiomediastinal silhouette is normal. There are bilateral lower lung airspace opacities. Bilateral small pleural effusions. IMPRESSION: Bilateral small pleural effusions are seen. Bilateral airspace opacities may represent atelectasis, pneumonia, and/or aspiration. ACT 112: Negative or not required by law. Electronically signed by: Roberto Carlos Sutherland M.D. 08/08/2021 11:28 AM Dictated:08/08/21 1123 Transcribed: 08/08/21 1123 FL barium swallow CLINICAL HISTORY: globus sensation with solids x few weeks TECHNIQUE: The patient was observed drinking thick and thin barium under fluoroscopic observation in both the upright and recumbent positions. Total fluoroscopy time: 1.5 minutes. COMPARISON: None available at the time of this dictation. FINDINGS: The patient had no problem initiating the swallowing mechanism. There was no evidence of aspiration. Dysmotility was seen with incomplete clearance of esophageal contents. There was no evidence of strictures, filling defects, or outpouchings. Contrast flowed readily from the esophagus into the stomach. No hiatal hernia was identified. There was no evidence of gastroesophageal reflux. The patient was unable to swallow a 13 mm barium pill. IMPRESSION: Dysphagia is seen with incomplete clearance of contrast from the esophagus. The patient did not attempt swallowing the pill. ACT 112: Negative or not required by law. Electronically signed by: Roberto Carlos Sutherland M.D. 08/05/2021 2:03 PM Dictated:08/05/21 1400 Transcribed: 08/05/21 1400 BILATERAL LOWER EXTREMITY VENOUS DOPPLER HISTORY: Acute pain and swelling of the lower legs PE, right leg swelling COMPARISON STUDY: None. FINDINGS: Occlusive and partially occlusive thrombus is noted within the proximal aspect of the right superficial femoral vein extending into the deep veins of the calf, likely acute. Nonocclusive thrombus in the left popliteal vein extends the posterior tibial vein. IMPRESSION: 1. Occlusive and partially occlusive likely acute deep venous thrombus of the r ight lower extremity. 2. Nonocclusive thrombi of the left lower extremity, possibly chronic. ACT 112: Negative or not required by law. Electronically signed by: Mariano Hurd M.D. 08/03/2021 8:58 PM Dictated:08/03/212055 Transcribed: 08/03/212055 Hospital Course (1) Acute saddle pulmonary embolism: Acute Saddle Pulmonary Embolism Present on admission notified by outpatient oncology after obtaining CTA chest due to worsening shortness of breath that showed acute saddle pulmonary embolism mild right heart strain In the ED, patient is hemodynamically stable and saturating well on room air Patient was admitted in the ICU for close monitor In the ED, patient is hemodynamically stable and saturating well on room air She was started on IV heparin drip and transition to Lovenox as per oncology Dr. Rose Oncologist Dr. Rose recommended to transition to Lovenox BID x 1 month, then NOACs as outpatient Due to worsening renal function, case discussed with Oncology Dr. Rose that recommended to discontinue lovenox and switching to therapeutic dosing of apixaban Follow up with Oncology outpatient Dysphagia to solids -Ba swallow: Dysphagia is seen with incomplete clearance of contrast from the esophagus. The patient did not attempt swallowing the pill. -Speech Eval: Esoph dysmotility - CT abd/pelv: Thickening of the distal esophagus near the gastroesophageal junction consistent with a serosal deposit of metastatic disease. - GI consulted - Status post EGD donewith Positive esophageal stenosis, stent placed -GI recommended clear liquids x2 days, full liquids x2 days per GI -Continue to have worsening nausea -Repeat CT abdomen/pelvis Interval placement of a distal esophageal stent which traverses the area of thickening at the gastroesophageal junction. The stent is fluid-filled. The proximal esophagus is also mildly distended and fluid-filled. Therefore, this raises the possibility of a partial stent obstruction. Of note, the distal portion of the stent is not included on this study. CT finding discussed with GI Dr. Quintanilla that recommended to continue monitor for worsening GI symptoms Tolerated clear liquid diet, will advanced as tolerated Bilateral pleural Effusion Repeat chest x-ray showing bilateral pleural effusion, CT chest showed Slight increase in size in the small bilateral pleural fusions and moderate ascites. Given 2 doses of Lasix 20 mg IV for the past 2 days, However creatinine is increasing to 1.8 Hold Lasix today Nephrology on board for fluid management Continue to hold Lasix for now (2) Ovarian ca: (3) Metastatic disease: -Initial diagnosis in 2013 -Current treatment plan is p.o. Votrient -however on hold due to recent fatigue -Follows with Dr. Weinberg and Misti Zamorano PA-C -Unfortunately CT shows progression of disease (4) Diabetes mellitus, type 2: -Hgb A1c 5.4 03/2021 -Hold oral agents, NovoLog per protocol while hospitalized (5) CKD (chronic kidney disease), stage III: ANNIE on CKD stage III -Baseline creatinine runs in the low 1's -Creatinine 1.5 on admission -Creatinine worsening from 1.8 to 2.4 today - Continue to hold Lasix, lisinopril and Metformin - Pt does not want to stay longer in the hospital event though creatinine worsening - Nephrology does not feel comfortable as well to for her to discharge - She will sign AMA - Pt was advised to check her BMP in 1 to 2 days (6) DVT prophylaxis: - Lovenox, will transition to Eliquis Disposition Pt signed AMA Total Time Total Time Spent Total Time Spent (In Minutes): 35 minutes Discharge Plan Discharge Items Patient Disposition: Against Medical Advice Reason For Visit: SADDLE EMBOLI, CP Activity: Resume your previous activity Non-emergency contact: Primary Care Provider, News Camera Person and Oncologist Follow-up/Referrals: Arpit Whitt MD [Primary Care Provider] - (Date & Time 08/16/2021 9:20 AM Provider Carlos Enrique Archer PA-C Department [facility] ) [employer] Pipe Fitter Provider Instructions: Follow up with your primary care provider 08/16/2021 9:20 AM Carlos Enrique Archer PA-C Department [facility] Follow up with Gastroenterology if symptoms reoccur Follow up with your Oncology Dr. Rose You will need to contact your primary care provider to check your BMP to monitor your kidney function Avoid any NSAID such as motrin, aleve, naproxen, ibuprofen, advil, .... Please hold Metformin, Lisinopril, Lasix for now until kidney function improves Recommend lifelong anticoagulation given the patient has metastatic cancer Please advance your diet slowly as tolerated Medication Instructions: Eliquis Your condition is typically treated with an anticoagulant. Anticoagulants will thin your blood to help prevent new clots. You should take her medication exactly as directed. Never skip a dose. Never take a double dose. If you miss a dose, take it as soon as you remember. Avoid NSAIDs (Motrin, Aleve, Naproxen, Ibuprofen, Advil, Meloxicam,..) due to risks of bleeding Call your Primary Care doctor if you experience any of the following: Swelling or Pain in your leg Sudden, continuous pain deep in a muscle Pain that worsens when you are active or when you stand still for a long time Chest Pain Sudden Shortness of Breath Rapid or pounding heart beat Fainting Dizziness Cough with blood or bloody sputum Sweating more than normal Bruises Heavy or uncontrolled bleeding Blood in your urine, stool or vomit Black or tarry stools Caring for Your Self at Home: Avoid sitting, standing or lying down for long periods without moving your legs and feet When traveling by car, stop to get out and move around at least once every 3 hours On long airplane, train or bus rides, get up and move around when possible If you can't get up, wiggle your toes and tighten your calves to keep your blood moving Follow Up: It is important for you to keep your follow up appointments with your medical provider. Pending Studies at Discharge: No Stand-Alone Forms: My [facility], Smoking Cessation Medications and DC Order Prescriptions: New Eliquis 5 mg Tablet 5 mg PO UD Qty: 74 RF: 0 Continued multivitamin Tablet 1 tab PO QAM RF: 0 metformin 500 mg Tablet 1,000 mg PO BID RF: 0 lorazepam 0.5 mg Tablet 0.5 mg PO TID PRN (Reason: Anxiety) RF: 0 simvastatin 20 mg Tablet 20 mg PO PM RF: 0 zolpidem 10 mg Tablet 1 tab PO HS RF: 0 prochlorperazine maleate [Compazine] 5 mg Tablet 5 mg PO TID PRN (Reason: Nausea) RF: 0 olanzapine 2.5 mg tablet 2.5 mg PO HS RF: 0 oxycodone 5 mg tablet 5 mg PO Q4 PRN (Reason: Pain) RF: 0 Changed pantoprazole 40 mg tablet,delayed release (DR/EC) 40 mg PO BID Qty: 60 RF: 0 No Action ondansetron HCl 8 mg tablet 8 mg PO UD PRN (Reason: Nausea) RF: 0 furosemide 80 mg tablet 80 mg PO BID Qty: 30 RF: 0 Discharge Orders: Left Against Medical Advice (Routine); Ordered 08/12/21 Ordered By: David Branch/Other Patient Handouts: Pulmonary Embolism, Embolism Pulmonary Dc Admission Data Admit Date/Time: 08/03/21 15:17 Attending Provider: David Ansari Admit Provider: Tequila Li Primary Care Provider: Arpit Whitt Other Providers: Kade Benjamin ; Goyo Villareal ; Hiram Soni ; Michael Thomas Other Interventions: Discharge Summary Assessment (RN) Last Done: 08/12/21 16:47
== END 2021-08-12 17:43 | disposition left against medical advice (07) | DRG 175 ==
LOC: ED 14:00 → SUATTDRO 15:17 → 1E 15:17 → 2S 08-04 18:17
DX: J90 Pleural effusion, not elsewhere classified; I26.92 Saddle embolus of pulmonary artery without acute cor pulmonale; J96.01 Acute respiratory failure with hypoxia; R00.0 Tachycardia, unspecified; Z87.891 Personal history of nicotine dependence; E11.22 Type 2 diabetes mellitus with diabetic chronic kidney disease; E78.5 Hyperlipidemia, unspecified; C79.9 Secondary malignant neoplasm of unspecified site; C56.9 Malignant neoplasm of unspecified ovary; N17.9 Acute kidney failure, unspecified; N18.30 Chronic kidney disease, stage 3 unspecified; I12.9 Hypertensive chronic kidney disease with stage 1 through stage 4 chronic kidney disease, or unspecified chronic kidney disease

== ENCOUNTER 2021-08-12 20:27 | Inpatient (IN) ==
[2021-08-12] MEDS ORDERED: PANTOprazole 80 MG in DEXTROSE 5% 100 ML IV ONE (21:18)
[2021-08-12] MEDS ORDERED: PANTOPRAZOLE BOLUS/DRIP 1 EA IV STA (21:18)
[2021-08-12] MEDS ORDERED: SODIUM CHLORIDE 0.9% 1000ML 1,000 ML IV SCH (21:30)
[2021-08-12 21:33] LABS: Hematocrit (blood only) 33.8 % (37-47); Hemoglobin 10.8 g/dL (12.0-16.0); Immature Granulocytes # (auto) 0.02 K/uL (0.00-0.02); Immature Granulocytes % (auto) 0.2 %; Lymphocytes # (auto) 0.75 K/uL (1.2-3.4); Lymphocytes % (auto) 7.3 %; Mean Corpuscular Hemoglobin 35.3 pg (25-34); Mean Corpuscular Volume 110.5 fL (80-100); Mean Platelet Volume 10.1 fL (7.4-10.4); Monocytes # (auto) 0.84 K/uL (0.11-0.59); Monocytes % (auto) 8.2 %; Neutrophils # (auto) 8.67 K/uL (1.4-6.5); Neutrophils % (auto) 84.3 %; Nucleated RBC # (auto) 0.03 K/uL (0-0); Nucleated RBC % (auto) 0.3 %; Platelet Count 296 K/uL (130-400); RDW Coefficient of Variation 20.4 % (11.5-14.5); RDW Standard Deviation 81.7 fL (36.4-46.3); Red Blood Count 3.06 M/uL (4.2-5.4); White Blood Count 10.28 K/uL (4.8-10.8)
[2021-08-12] MEDS ORDERED: DC ALL ANTICOAGULANTS ONE (21:41)
[2021-08-12] MEDS ORDERED: PROTHROMBIN COMP CONC- KCENTRA 2,000 UNITS in SYRINGE 0 ML IV STA (21:41)
--- NOTE | 2021-08-12 21:48 | Emergency Department Note ---
Impression & Plan Hematemesis/vomiting blood, Ovarian ca, Pulmonary emboli ED Provider Note NAME: JULIANA HERNANDEZ AGE: 65 SEX: F : 1955 ARRIVES VIA: Ambulance INFORMANT: Patient ED PROVIDER(S): Kodak Fox DO CHIEF COMPLAINT: Vomiting blood HPI: Patient is a 65-year-old female who presents the ER with recent past medical history which includes saddle PEs, pulmonary infarcts, DVTs, CKD, diabetes and ovarian cancer with metastatic disease who was just discharged within the past 24 hours. She had an esophageal stent placed at the GE junction secondary to a malignant stricture 2 days ago. She was placed on Eliquis. In the past 3 hours she started vomiting up blood. She notes it is dark blood. She denies any headache or change in vision. No chest pain or shortness of breath. No dysuria, urgency, or frequency. She took her last dose of Eliquis around 430 today. ROS: See above HPI for pertinent positives & negatives. A total of 10 systems reviewed and were otherwise negative. PAST MEDICAL HISTORY:See Below PAST SURGICAL HISTORY:See Below FAMILY HISTORY:See Below SOCIAL HISTORY:See Below HOME MEDICATIONS:See Below ALLERGIES:See Below VITALS:See Below PHYSICAL EXAMINATION: GENERAL: Sitting up in bed, alert, ill-appearing, moderate distress EYE EXAM: normal conjunctiva. PERRL and EOM's grossly intact. OROPHARYNX: Dried blood in the posterior pharynx NECK: supple, no nuchal rigidity, no adenopathy, non-tender LUNGS: Clear to auscultation. Normal chest wall mechanics HEART: no murmurs, S1 normal and S2 normal ABDOMEN: abdomen soft, non-tender, normo-active bowel sounds, no masses, no rebound or guarding. UPPER EXTREMITIES: upper extremities are grossly normal. LOWER EXTREMITIES: No pitting edema. NEURO EXAM: Normal sensorium, cranial nerves II-XII grossly intact, normal speech, no gross weakness of arms, no gross weakness of legs. MEDICAL DECISION MAKING: Patient is a 65-year-old female with a significant complicated past medical history which includes recent saddle PEs placed on anticoagulation vomiting blo od following having a stent placed at the GE junction secondary to stricture from metastatic lesion. She vomited multiple times in the ER for a total of 300 to 500 mL total of dark/bright blood. IV was established blood work was obtained. She was tachycardic. Labs showed no significant leukocytosis but a mild anemia 10.8 fairly consistent with previous. INR at 1.2. BMP with a CO2 of 17 creatinine of 2.5 consistent with last admission. Troponin was negative. Lipase was negative. Covid was negative. Patient was typed and crossed and given a unit of PRBCs due to the volume of blood that she vomited. CT of the chest and belly were obtained and showed previous ascites pleural effusions and no significant change from previous. Based on insurance initially called [facility] and [place] spoke with the transfer center who informed her that they are completely full and will not accept this patient. Following this discussed with the family and we discussed her case with Dr. Hughes from [facility]. He recommended having her belt knife feeder scoped patient first due to their bed shortage and having no available beds currently. He recommend rediscussing with our GI and informing that it would he would call me back later. I did rediscuss this with Dr. Lopez as I initially discussed it with him when the patient first presented and he recommended transferring for interventional radiology. Upon rediscussion Dr. Lopez noted that there would be little benefit from him scoping this patient at this time as he is not an advanced GI interventionalist. He did discuss with Dr. Reynold Licona and they concluded that she can be scoped in the morning and does not need to be scoped right now. Dr. Hughes called back and after speaking with his belt knife feeder recommended keeping the patient here and scoping the patient and calling them back if needed. Prior to this I had given the patient Kcentra to help reverse the NOAC which she took around 5 PM. The risk and benefits were weighed with the recent saddle PEs and as she vomited a fair amount of bright red blood I felt this was most prudent at this time. Family was updated throughout the entire stay. Discussed with Dr. Huizar who admitted the patient. Patient will likely be scoped in the morning unless situation changes. Patient did remain on a PPI drip and bolus. Triage Nursing notes reviewed. Limited review of prior medical records performed Vital Signs: reviewed and remarkable for tachycardic Differential diagnosis: Differential diagnosis includes etiologies such as diverticulitis, diverticulosis, AVM, coagulopathy, colitis, inflammatory bowel disease, malignancy, [place] tear, esophagitis, peptic ulcer disease, variceal bleed, gastritis, epistaxis, fissure, hemorrhoids, as well as others were entertained. ER treatment provided: See below Diagnostics interpreted by me: ECG: none Cardiac Monitoring: An order was placed for continuous cardiac monitoring. The monitor shows a rate of 101 with sinus rhythm. Laboratory studies: As stated above and show below. Imaging studies: CT of the chest and CT abdomen pelvis as discussed above Consultation(s): Discussed with her she via [place] secretary office clerk who informed her that they would not be accepting this patient Discussed with [facility] Dr. Hughes as discussed above Discussed with Dr. Lopez as discussed above from [facility] Discussed with Dr. Huizar who accepted the patient Procedures: none Critical Care: I have personally spent 80 minutes of critical care time in the direct management of this patient. This includes bedside care, interpretation of diagnostic studies, and testing, discussion with consultants, patient, and family members, and other required patient management activities. This 80 minutes is in excess of all separately billable procedures. 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 Treated with systemic chemotherapy. Continued surveillance and finding of lymphadenopathy/nodule of the pelvis February 23, 2018 Status post fine-needle aspiration April 18, 2018 revealing metastatic adenocarcinoma consistent with ovarian origin. Status post completion of stereotactic body radiation therapy June 04, 2018. 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 Treated with systemic chemotherapy. Continued surveillance and finding of lymphadenopathy/nodule of the pelvis February 23, 2018 Status post fine-needle aspiration April 18, 2018 revealing metastatic adenocarcinoma consistent with ovarian origin." Surgical History History of bilateral cataract extraction History of cholecystectomy History of esophagogastroduodenoscopy (EGD) History of tonsillectomy and adenoidectomy History of tooth extraction wisdom teeth History of total abdominal hysterectomy and bilateral salpingo-oophorectomy 2013 Hx of inguinal hernia repair unsure which side Family History Grandmother Family history of diabetes mellitus maternal Social History Smoking Status: Former smoker Tobacco Type: Cigarettes Second Hand Exposure: Yes (parents smoked); Hx Alcohol Use: No Hx Substance Use: No Preferred Language: Paraguayan Communication Ability: Effective Expeller Worker Required: No Beliefs That Will Affect Care: None marital status: Current Living Situation: Alone Feels Safe at Home: Yes Assistive Devices: None Allergies Allergies Allergy/AdvReac Type Severity Reaction Status Date / Time No Known Allergies Allergy Verified 08/12/21 22:17 Home Meds Home Medications Medication Instructions Recorded Confirmed lisinopril 10 mg tablet 10 mg PO QAM 08/27/18 08/12/21 lorazepam 0.5 mg tablet 0.5 mg PO TID PRN 08/27/18 08/12/21 metformin 500 mg tablet 1,000 mg PO BID 08/27/18 08/12/21 multivitamin 1 tab PO QAM 08/27/18 08/12/21 simvastatin 20 mg tablet 20 mg PO PM 08/27/18 08/12/21 zolpidem 10 mg tablet 1 tab PO HS 08/27/18 08/12/21 prochlorperazine maleate 5 mg 5 mg PO TID PRN 06/18/21 08/12/21 tablet (Compazine) olanzapine 2.5 mg tablet 2.5 mg PO HS 08/03/21 08/12/21 oxycodone 5 mg tablet 5 mg PO Q4 PRN 08/03/21 08/12/21 prednisone 20 mg tablet 20 mg PO DAILY 08/03/21 08/12/21 ondansetron HCl 8 mg tablet 8 mg PO UD PRN 08/12/21 08/12/21 Previous Rx's Medication Instructions Recorded apixaban 5 mg tablet (Eliquis) 5 mg PO UD #74 tab 08/12/21 pantoprazole 40 mg tablet,delayed 40 mg PO BID #60 tab 08/12/21 release Results & Data (ED) Vital Signs Vital Signs - 24 hr 08/12/21 20:34 08/12/21 21:00 08/12/21 21:23 Temperature 36.6 C Temperature Source Oral Pulse Rate 112 H 105 H Respiratory Rate 20 20 Respiratory Effort / Characteristics Non-Labored Spontaneous Respiratory Depth Normal Blood Pressure 118/80 106/72 Blood Pressure Mean 92 83 Blood Pressure Position Pulse Oximetry 95 96 97 Oxygen Delivery Method Room Air Room Air Sepsis New/Unexplained Change in Mental Status N/A Sepsis Action Taken by Nursing No Action Required 08/12/21 22:08 08/12/21 22:30 08/12/21 23:00 Temperature Temperature Source Pulse Rate 104 H 104 H 97 H Respiratory Rate 24 24 16 Respiratory Effort / Characteristics Respiratory Depth Blood Pressure 121/81 121/84 113/69 Blood Pressure Mean 94 96 83 Blood Pressure Position Pulse Oximetry 95 96 97 Oxygen Delivery Method Room Air Sepsis New/Unexplained Change in Mental Status Sepsis Action Taken by Nursing 08/12/21 23:29 08/12/21 23:45 08/13/21 00:15 Temperature 36.7 C 36.7 C 36.5 C Temperature Source Oral Oral Oral Pulse Rate 97 H 92 H 92 H Respiratory Rate 20 20 18 Respiratory Effort / Characteristics Respiratory Depth Blood Pressure 122/72 112/77 105/54 L Blood Pressure Mean 88 88 71 Blood Pressure Position Sitting Pulse Oximetry 98 95 99 Oxygen Delivery Method Sepsis New/Unexplained Change in Mental Status Sepsis Action Taken by Nursing Laboratory Data Result diagrams: 08/12/21 20:43 08/12/21 20:43 Lab Results 08/12/21 08/12/21 08/12/21 Range/Units 20:43 20:43 20:43 WBC 10.28 (4.8-10.8) K/uL RBC 3.06 L (4.2-5.4) M/uL Hgb 10.8 L (12.0-16.0) g/dL Hct 33.8 L (37-47) % MCV 110.5 H (80-100) fL MCH 35.3 H (25-34) pg MCHC 32.0 (32-36) g/dL RDW Std Deviation 81.7 H (36.4-46.3) fL RDW Coeff of Cely 20.4 H (11.5-14.5) % Plt Count 296 (130-400) K/uL MPV 10.1 (7.4-10.4) fL Immature Gran % (Auto) 0.2 % Neut % (Auto) 84.3 % Lymph % (Auto) 7.3 % [place] % (Auto) 8.2 % Eos % (Auto) 0.0 % Baso % (Auto) 0.0 % Neut # (Auto) 8.67 H (1.4-6.5) K/uL Lymph # (Auto) 0.75 L (1.2-3.4) K/uL [place] # (Auto) 0.84 H (0.11-0.59) K/uL Eos # (Auto) 0.00 (0-0.5) K/uL Baso # (Auto) 0.00 (0-0.2) K/uL Immature Gran # (Auto) 0.02 (0.00-0.02) K/uL Absolute Nucleated RBC 0.03 H (0-0) K/uL Nucleated RBC % (auto) 0.3 % Polychromasia 2+ Poikilocytosis Present Anisocytosis Present PT (9.0-12.0) Seconds INR (0.9-1.1) APTT (21.0-31.0) Seconds PTT Ratio Fibrinogen (184-400) mg/dl Heparin Anti-Xa, LM Wt (< 0.10) IU/ML VBG pH (7.36-7.41) VBG pCO2 (38-50) mmHg VBG pO2 mmHg VBG HCO3 mmol/L VBG O2 Saturation % VBG Base Excess mEq/L Barometric Pressure mm/Hg Sodium 138 (136-145) mmol/L Potassium 4.1 (3.5-5.1) mmol/L Chloride 109 H (98-107) mmol/L Carbon Dioxide 15 L (21-32) mmol/L Anion Gap 14.0 H (3-11) BUN 55 H (7-18) mg/dl Creatinine 2.75 H D (0.6-1.2) mg/dl Est Cr Clr Drug Dosing 21.4 ml/min Est GFR ( Amer) 19.9 ml/min Est GFR (Non-Af Amer) 17.1 ml/min BUN/Creatinine Ratio 19.9 (10-20) Glucose 140 H (70-99) mg/dl Calcium 8.8 (8.5-10.1) mg/dl Magnesium 1.8 (1.8-2.4) mg/dl Total Bilirubin 0.5 (0.2-1) mg/dl AST 34 (15-37) U/L ALT 13 (12-78) U/L Alkaline Phosphatase 162 H (45-117) U/L Troponin I < 0.015 (0-0.045) ng/ml Total Protein 6.2 L (6.4-8.2) gm/dl Albumin 2.1 L (3.4-5.0) gm/dl Globulin 4.1 H (2.5-4.0) gm/dl Albumin/Globulin Ratio 0.5 L (0.9-2) Lipase 55 L (73-393) U/L Specimen Hemolysis COVID-19 Eval Order SARS-CoV-2 (PCR) (Negative) Blood Type A Positive Antibody Screen NEGATIVE Crossmatch See Detail 08/12/21 08/12/21 08/12/21 Range/Units 20:43 21:34 21:34 WBC (4.8-10.8) K/uL RBC (4.2-5.4) M/uL Hgb (12.0-16.0) g/dL Hct (37-47) % MCV (80-100) fL MCH (25-34) pg MCHC (32-36) g/dL RDW Std Deviation (36.4-46.3) fL RDW Coeff of Cely (11.5-14.5) % Plt Count (130-400) K/uL MPV (7.4-10.4) fL Immature Gran % (Auto) % Neut % (Auto) % Lymph % (Auto) % [place] % (Auto) % Eos % (Auto) % Baso % (Auto) % Neut # (Auto) (1.4-6.5) K/uL Lymph # (Auto) (1.2-3.4) K/uL [place] # (Auto) (0.11-0.59) K/uL Eos # (Auto) (0-0.5) K/uL Baso # (Auto) (0-0.2) K/uL Immature Gran # (Auto) (0.00-0.02) K/uL Absolute Nucleated RBC (0-0) K/uL Nucleated RBC % (auto) % Polychromasia Poikilocytosis Anisocytosis PT 12.1 H (9.0-12.0) Seconds INR 1.2 H (0.9-1.1) APTT 40.2 H (21.0-31.0) Seconds PTT Ratio 1.5 Fibrinogen (184-400) mg/dl Heparin Anti-Xa, LM Wt (< 0.10) IU/ML VBG pH (7.36-7.41) VBG pCO2 (38-50) mmHg VBG pO2 mmHg VBG HCO3 mmol/L VBG O2 Saturation % VBG Base Excess mEq/L Barometric Pressure mm/Hg Sodium (136-145) mmol/L Potassium (3.5-5.1) mmol/L Chloride (98-107) mmol/L Carbon Dioxide (21-32) mmol/L Anion Gap (3-11) BUN (7-18) mg/dl Creatinine (0.6-1.2) mg/dl Est Cr Clr Drug Dosing ml/min Est GFR ( Amer) ml/min Est GFR (Non-Af Amer) ml/min BUN/Creatinine Ratio (10-20) Glucose (70-99) mg/dl Calcium (8.5-10.1) mg/dl Magnesium (1.8-2.4) mg/dl Total Bilirubin (0.2-1) mg/dl AST (15-37) U/L ALT (12-78) U/L Alkaline Phosphatase (45-117) U/L Troponin I (0-0.045) ng/ml Total Protein (6.4-8.2) gm/dl Albumin (3.4-5.0) gm/dl Globulin (2.5-4.0) gm/dl Albumin/Globulin Ratio (0.9-2) Lipase (73-393) U/L Specimen Hemolysis COVID-19 Eval Order Covid19 at [facility] SARS-CoV-2 (PCR) NEGATIVE (Negative) Blood Type Antibody Screen Crossmatch 08/12/21 08/13/21 08/13/21 Range/Units 21:48 00:01 00:01 WBC (4.8-10.8) K/uL RBC (4.2-5.4) M/uL Hgb (12.0-16.0) g/dL Hct (37-47) % MCV (80-100) fL MCH (25-34) pg MCHC (32-36) g/dL RDW Std Deviation (36.4-46.3) fL RDW Coeff of Cely (11.5-14.5) % Plt Count (130-400) K/uL MPV (7.4-10.4) fL Immature Gran % (Auto) % Neut % (Auto) % Lymph % (Auto) % [place] % (Auto) % Eos % (Auto) % Baso % (Auto) % Neut # (Auto) (1.4-6.5) K/uL Lymph # (Auto) (1.2-3.4) K/uL [place] # (Auto) (0.11-0.59) K/uL Eos # (Auto) (0-0.5) K/uL Baso # (Auto) (0-0.2) K/uL Immature Gran # (Auto) (0.00-0.02) K/uL Absolute Nucleated RBC (0-0) K/uL Nucleated RBC % (auto) % Polychromasia Poikilocytosis Anisocytosis PT 12.3 H (9.0-12.0) Seconds INR 1.2 H (0.9-1.1) APTT 43.1 H (21.0-31.0) Seconds PTT Ratio 1.6 Fibrinogen 404 H (184-400) mg/dl Heparin Anti-Xa, LM Wt > 1.50 (< 0.10) IU/ML VBG pH 7.40 (7.36-7.41) VBG pCO2 28 L (38-50) mmHg VBG pO2 83 mmHg VBG HCO3 17 mmol/L VBG O2 Saturation 96.7 % VBG Base Excess -6.7 mEq/L Barometric Pressure 738.6 mm/Hg Sodium (136-145) mmol/L Potassium (3.5-5.1) mmol/L Chloride (98-107) mmol/L Carbon Dioxide (21-32) mmol/L Anion Gap (3-11) BUN (7-18) mg/dl Creatinine (0.6-1.2) mg/dl Est Cr Clr Drug Dosing ml/min Est GFR ( Amer) ml/min Est GFR (Non-Af Amer) ml/min BUN/Creatinine Ratio (10-20) Glucose (70-99) mg/dl Calcium (8.5-10.1) mg/dl Magnesium (1.8-2.4) mg/dl Total Bilirubin (0.2-1) mg/dl AST (15-37) U/L ALT (12-78) U/L Alkaline Phosphatase (45-117) U/L Troponin I (0-0.045) ng/ml Total Protein (6.4-8.2) gm/dl Albumin (3.4-5.0) gm/dl Globulin (2.5-4.0) gm/dl Albumin/Globulin Ratio (0.9-2) Lipase (73-393) U/L Specimen Hemolysis COVID-19 Eval Order SARS-CoV-2 (PCR) (Negative) Blood Type Antibody Screen Crossmatch Administered Medications Pantoprazole Sodium 40 mg/ (Dextrose) 100 mls @ 20 mls/hr IV Q5H FERNANDO Stop: 09/11/21 21:44 Last Admin: 08/12/21 22:11 Dose: 8 mg/hr, 20 mls/hr Documented by: [id number] Discontinued Medications Sodium Chloride (Nss 1000ml) 1,000 mls @ 999 mls/hr IV .Q1H1M FERNANDO Stop: 08/12/21 22:30 Last Infusion: 08/12/21 22:48 Dose: 0 mls/hr Documented by: [id number] Admin: 08/12/21 21:47 Dose: 999 mls/hr Documented by: [id number] Pantoprazole Sodium (Protonix Bolus/Drip) 0 mls @ 1 mls/hr IV ONE STA Stop: 08/12/21 21:19 Last Admin: 08/12/21 22:11 Dose: 1 mls/hr Documented by: [id number] Pantoprazole Sodium 80 mg/ (Dextrose) 120 mls @ 400 mls/hr IV NOW ONE Stop: 08/12/21 21:35 Last Infusion: 08/12/21 22:11 Dose: 0 mls/hr Documented by: [id number] Admin: 08/12/21 21:46 Dose: 400 mls/hr Documented by: [id number] Prothrombin Complex Concent ( (Human) 2,000 units/ Syringe) 80 mls @ 10 mls/min IV NOW STA Stop: 08/12/21 21:48 Last Admin: 08/12/21 22:37 Dose: 10 mls/min Documented by: [id number] Prothrombin Complex Concent ( (Human) 2,000 units/ Syringe) 80 mls @ 10 mls/min IV NOW ONE; Protocol Stop: 08/12/21 22:37 Last Admin: 08/12/21 22:40 Dose: Not Given Documented by: [id number] Discharge Plan Visit Data Chief Complaint: Vomiting Stated Complaint: VOMITING ED Provider: Kodak Fox Discharge Problem: Hematemesis/vomiting blood, Ovarian ca, Pulmonary emboli Forms Stand Alone Forms: [facility] Prescriptions Prescriptions: No Action multivitamin Tablet 1 tab PO QAM RF: 0 metformin 500 mg Tablet 1,000 mg PO BID RF: 0 lorazepam 0.5 mg Tablet 0.5 mg PO TID PRN (Reason: Anxiety) RF: 0 simvastatin 20 mg Tablet 20 mg PO PM RF: 0 lisinopril 10 mg Tablet 10 mg PO QAM RF: 0 zolpidem 10 mg Tablet 1 tab PO HS RF: 0 prochlorperazine maleate [Compazine] 5 mg Tablet 5 mg PO TID PRN (Reason: Nausea) RF: 0 ondansetron HCl 8 mg tablet 8 mg PO UD PRN (Reason: Nausea) RF: 0 prednisone 20 mg tablet 20 mg PO DAILY RF: 0 olanzapine 2.5 mg tablet 2.5 mg PO HS RF: 0 oxycodone 5 mg tablet 5 mg PO Q4 PRN (Reason: Pain) RF: 0 Eliquis 5 mg Tablet 5 mg PO UD Qty: 74 RF: 0 pantoprazole 40 mg tablet,delayed release (DR/EC) 40 mg PO BID Qty: 60 RF: 0 Referrals Referrals: Arpit Whitt MD [Primary Care Provider] -
[2021-08-12 21:49] LABS: Alanine Aminotransferase 13 U/L (12-78); Albumin Level 2.1 gm/dl (3.4-5.0); Aspartate Aminotransferase 34 U/L (15-37); BUN Creatinine Ratio 19.9 (10-20); Blood Urea Nitrogen 55 mg/dl (7-18); Calcium 8.8 mg/dl (8.5-10.1); Carbon Dioxide 15 mmol/L (21-32); Chloride 109 mmol/L (98-107); Creatinine Clr Calc Pharmacy 21.4 ml/min; Est GFR (African American) 19.9 ml/min; Est GFR (Non-African American) 17.1 ml/min; Glucose 140 mg/dl (70-99); Lipase 55 U/L (73-393); Potassium 4.1 mmol/L (3.5-5.1); Sodium 138 mmol/L (136-145)
[2021-08-12 21:50] LABS: INR 1.2 (0.9-1.1); Partial Thromboplastin Ratio 1.5; Partial Thromboplastin Time 40.2 Seconds (21.0-31.0); Prothrombin Time 12.1 Seconds (9.0-12.0)
[2021-08-12 21:54] LABS: Albumin Globulin Ratio 0.5 (0.9-2); Alkaline Phosphatase 162 U/L (45-117); Bilirubin,Total 0.5 mg/dl (0.2-1); Globulin 4.1 gm/dl (2.5-4.0); Total Protein 6.2 gm/dl (6.4-8.2); Troponin I < 0.015 ng/ml (0-0.045)
[2021-08-12] MEDS: PANTOprazole 40 MG in DEXTROSE 5% 100 ML IV SCH (22:11)
[2021-08-12 22:23] LABS: Fibrinogen 404 mg/dl (184-400); INR 1.2 (0.9-1.1); Partial Thromboplastin Ratio 1.6; Partial Thromboplastin Time 43.1 Seconds (21.0-31.0); Prothrombin Time 12.3 Seconds (9.0-12.0)
[2021-08-12] MEDS ORDERED: KCENTRA (500unit vial) 2000 units IVP IV ONE (22:30)
[2021-08-12 22:40] LABS: Anisocytosis Present; Poikilocytosis Present; Polychromasia 2+
[2021-08-12] MEDS ORDERED: SODIUM CHLORIDE 0.9% 250 ML IV PRN (22:41)
[2021-08-12 23:02] LABS: Magnesium 1.8 mg/dl (1.8-2.4)
--- NOTE | 2021-08-12 23:28 | History & Physical Report ---
Date of Service August 12, 2021 Assessment & Plan (1) UGIB (upper gastrointestinal bleed): Plan: Patient predisposed Eliquis intake for saddle PE/DVT in the setting of worsening kidney dysfunction Differentials include [place] tear, esophagitis, esophageal tumor bleed, gastritis hx distal esophageal stenosis (metastatic disease from ovarian cancer status post surgery/radiation, chemotherapy) status post stent placement. Status post Kcentra administration at the ER. Patient currently hemodynamically stable. saddle PE/DVT on Eliquis in the setting of progressive malignancy ARF on CKD, AGMA Progressive kidney dysfunction with signs of third spacing Multifactorial : poor p.o. intake Recent IV radiocontrast administration Postrenal component given R hydronephrosis on CT noted from last confinement likely secondary to peritoneal carcinomatosis HTN, stable hyperlipidemia on statin Rx DM2 on oral medications, well-controlled as of recent hemoglobin A1c of 5.4 last February 2021 past tobacco abuse PCU IV PPI Follow H&H, transfuse PRBC if hemoglobin less than 7 and or for symptomatic anemia Appropriate to hold anticoagulation for now. GI consult RE UGI B, history esophageal stent placement (ER provider already in touch with Dr. Skelton who recommended tertiary center transfer given potential need for IR services. ER provider in touch with Dr. Hughes of [facility] who recommended endoscopy at [facility] for now.) Vascular surgery consult in a.m. Re: IVC filter placement given hx PE DVT with contraindication to anticoagulation. Baseline UA, monitor creatinine response to IVF (preferably colloid for now given third spacing) Appropriate to hold patient ELISSA inhibitor, Metformin given worsening kidney dysfunction Nephrology consult Re: ARF on CKD Urology consult Re: Obstructive uropathy on CAT scan N.p.o. in anticipation of procedures in a.m. ISS BG goal 1 10-1 40 DVT prophylaxis. TEDS (RE: GI bleed, SCDs contraindicated with recent DVTs) DNR Patient daughter requesting updates from providers. Wilmer Bladimir, contact #[phone]. Text document was generated using [employer] voice recognition software. It may contain grammatical or spelling errors. Kindly contact undersigned for clarification of any documentation item in quest ion. History of Present Illness Chief Complaint: Hematemesis Primary Care Provider: Arpit Whitt MD History obtained from patient, family, and records. Medical history significant for saddle PE/DVT on Eliquis, metastatic ovarian cancer status post surgery/radiation status post chemotherapy, esophageal stenosis status post stent placement, HTN, hyperlipidemia, CRI (baseline creatinine 1.4), chronic anemia (baseline hemoglobin 10), DM2 on oral medications, anxiety disorder, past tobacco abuse. Recent confinement August 03 to August 12, 2021 for acute saddle pulmonary embolism with LE DVT. Patient subsequently transitioned from Heparin to Eliquis secondary to worsening renal function during confinement as per leaf blender recommendations- serum creatinine progressively increased from 1.36 on admission to 2.75 yesterday when patient signed out AGAINST MEDICAL ADVICE. Mild right hydronephrosis on admission CT. Patient seen by Nephrology during confinement. Patient also underwent EGD for dysphagia symptoms. EGD showed gastritis and distal esophageal stenosis due to malignant submucosal infiltration. Esophageal stent placed and p.o. PPI recommended. Post stent placement, patient still with achy epigastric discomfort and inte rmittent nausea emesis. A few hours ago at home patient noted hematemesis, same epigastric discomfort. No black/bloody stools. No chest pain. Usual S OB on exertion. Poor appetite. Fluid retention with leg swelling/abdominal distention as per patient. Patient brought to ER by daughter for evaluation. IV PPI, Kcentra administered for UGI B secondary to Eliquis. 1 unit packed RBC administered at the ER. 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 Allergies Allergy/AdvReac Type Severity Reaction Status Date / Time No Known Allergies Allergy Verified 08/12/21 22:17 Home Medications Medication Instructions Recorded Confirmed Type lisinopril 10 mg tablet 10 mg PO QAM 08/27/18 08/12/21 History lorazepam 0.5 mg tablet 0.5 mg PO TID PRN 08/27/18 08/12/21 History metformin 500 mg tablet 1,000 mg PO BID 08/27/18 08/12/21 History multivitamin 1 tab PO QAM 08/27/18 08/12/21 History simvastatin 20 mg tablet 20 mg PO PM 08/27/18 08/12/21 History zolpidem 10 mg tablet 1 tab PO HS 08/27/18 08/12/21 History prochlorperazine maleate 5 mg 5 mg PO TID PRN 06/18/21 08/12/21 History tablet (Compazine) olanzapine 2.5 mg tablet 2.5 mg PO HS 08/03/21 08/12/21 History oxycodone 5 mg tablet 5 mg PO Q4 PRN 08/03/21 08/12/21 History apixaban 5 mg tablet (Eliquis) 5 mg PO UD #74 tab 08/12/21 08/12/21 Rx ondansetron HCl 8 mg tablet 8 mg PO UD PRN 08/12/21 08/12/21 History pantoprazole 40 mg tablet,delayed 40 mg PO BID #60 tab 08/12/21 08/12/21 Rx release Past Med/Surg History Medical History (Updated 08/13/21 @ 02:50 by Ismael Navas MD) Acute saddle pulmonary embolism 08/03/21 Anemia Anxiety CKD (chronic kidney disease), stage III Degenerative disc disease Diabetes mellitus, type 2 History of anesthesia reaction difficulty waking after cataract surgery Hyperlipidemia Hypertension Metastatic disease ovarian cancer with 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 Treated with systemic chemotherapy. Continued surveillance and finding of lymphadenopathy/nodule of the pelvis February 23, 2018 Status post fine-needle aspiration April 18, 2018 revealing metastatic adenocarcinoma consistent with ovarian origin. Status post completion of stereotactic body radiation therapy June 04, 2018. 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 Treated with systemic chemotherapy. Continued surveillance and finding of lymphadenopathy/nodule of the pelvis February 23, 2018 Status post fine-needle aspiration April 18, 2018 revealing metastatic adenocarcinoma consistent with ovarian origin." Surgical History History of bilateral cataract extraction History of cholecystectomy History of esophagogastroduodenoscopy (EGD) History of tonsillectomy and adenoidectomy History of tooth extraction wisdom teeth History of total abdominal hysterectomy and bilateral salpingo-oophorectomy 2014 Hx of inguinal hernia repair unsure which side Family History Grandmother Family history of diabetes mellitus maternal Social History Smoking Status: Former smoker Tobacco Type: Cigarettes Smoking End Date: 20 years ago; Second Hand Exposure: Yes (parents smoked); Hx Alcohol Use: No Hx Substance Use: No Preferred Language: Ukrainian Communication Ability: Effective Driller Portable Required: No Beliefs That Will Affect Care: None marital status: Current Living Situation: Alone Other Information That Helps Us Care for You: No Feels Safe at Home: Yes Safety Concerns: Feels Safe At This Time Assistive Devices: Glasses Review of Systems Review of Systems: As per HPI, all 10 systems reviewed, all other ROS negative Physical Exam Physical Exam: GENERAL: Comfortable, slightly anxious, no respiratory distress SKIN: Pallor , warm HEENT: Pale palpebral conjunctivae, no ptosis, dry buccal mucosa NECK : Supple, no tenderness CHEST : CTA, no tenderness HEART : Tachycardic, no obvious murmurs ABDOMEN: Some distention, epigastric tenderness EXTREMITIES : Bilateral LE swelling without tenderness, no other conspicuous deformities noted NEUROLOGIC : Coherent, no facial asymmetry, no other gross focality Results & Data Results & Data ([facility]) Vital Signs (Past 12 Hours) Vital Signs Temp Pulse Resp BP Pulse Ox 08/12/21 23:00 97 H 16 113/69 97 08/12/21 22:30 104 H 24 121/84 96 08/12/21 22:08 104 H 24 121/81 95 08/12/21 21:23 97 08/12/21 21:00 105 H 20 106/72 96 08/12/21 20:34 36.6 C 112 H 20 118/80 95 Laboratory Results Laboratory Results WBC 10.28 K/uL (4.8-10.8) 08/12/21 20:43 RBC 3.06 M/uL (4.2-5.4) L 08/12/21 20:43 Hgb 10.8 g/dL (12.0-16.0) L 08/12/21 20:43 Hct 33.8 % (37-47) L 08/12/21 20:43 MCV 110.5 fL (80-100) H 08/12/21 20:43 MCH 35.3 pg (25-34) H 08/12/21 20:43 MCHC 32.0 g/dL (32-36) 08/12/21 20:43 RDW Std Deviation 81.7 fL (36.4-46.3) H 08/12/21 20:43 RDW Coeff of Cely 20.4 % (11.5-14.5) H 08/12/21 20:43 Plt Count 296 K/uL (130-400) 08/12/21 20:43 MPV 10.1 fL (7.4-10.4) 08/12/21 20:43 Immature Gran % (Auto) 0.2 % 08/12/21 20:43 Neut % (Auto) 84.3 % 08/12/21 20:43 Lymph % (Auto) 7.3 % 08/12/21 20:43 [place] % (Auto) 8.2 % 08/12/21 20:43 Eos % (Auto) 0.0 % 08/12/21 20:43 Baso % (Auto) 0.0 % 08/12/21 20:43 Neut # (Auto) 8.67 K/uL (1.4-6.5) H 08/12/21 20:43 Lymph # (Auto) 0.75 K/uL (1.2-3.4) L 08/12/21 20:43 [place] # (Auto) 0.84 K/uL (0.11-0.59) H 08/12/21 20:43 Eos # (Auto) 0.00 K/uL (0-0.5) 08/12/21 20:43 Baso # (Auto) 0.00 K/uL (0-0.2) 08/12/21 20:43 Immature Gran # (Auto) 0.02 K/uL (0.00-0.02) 08/12/21 20:43 Absolute Nucleated RBC 0.03 K/uL (0-0) H 08/12/21 20:43 Nucleated RBC % (auto) 0.3 % 08/12/21 20:43 Polychromasia 2+ 08/12/21 20:43 Poikilocytosis Present 08/12/21 20:43 Anisocytosis Present 08/12/21 20:43 PT 12.3 Seconds (9.0-12.0) H 08/12/21 21:48 INR 1.2 (0.9-1.1) H 08/12/21 21:48 APTT 43.1 Seconds (21.0-31.0) H 08/12/21 21:48 PTT Ratio 1.6 08/12/21 21:48 Fibrinogen 404 mg/dl (184-400) H 08/12/21 21:48 Heparin Anti-Xa, LM Wt > 1.50 IU/ML (< 0.10) 08/12/21 21:48 Sodium 138 mmol/L (136-145) 08/12/21 20:43 Potassium 4.1 mmol/L (3.5-5.1) 08/12/21 20:43 Chloride 109 mmol/L (98-107) H 08/12/21 20:43 Carbon Dioxide 15 mmol/L (21-32) L 08/12/21 20:43 Anion Gap 14.0 (3-11) H 08/12/21 20:43 BUN 55 mg/dl (7-18) H 08/12/21 20:43 Creatinine 2.75 mg/dl (0.6-1.2) H D 08/12/21 20:43 Est Cr Clr Drug Dosing 21.4 ml/min 08/12/21 20:43 Est GFR ( Amer) 19.9 ml/min 08/12/21 20:43 Est GFR (Non-Af Amer) 17.1 ml/min 08/12/21 20:43 BUN/Creatinine Ratio 19.9 (10-20) 08/12/21 20:43 Glucose 140 mg/dl (70-99) H 08/12/21 20:43 Calcium 8.8 mg/dl (8.5-10.1) 08/12/21 20:43 Magnesium 1.8 mg/dl (1.8-2.4) 08/12/21 20:43 Total Bilirubin 0.5 mg/dl (0.2-1) 08/12/21 20:43 AST 34 U/L (15-37) 08/12/21 20:43 ALT 13 U/L (12-78) 08/12/21 20:43 Alkaline Phosphatase 162 U/L (45-117) H 08/12/21 20:43 Troponin I < 0.015 ng/ml (0-0.045) 08/12/21 20:43 Total Protein 6.2 gm/dl (6.4-8.2) L 08/12/21 20:43 Albumin 2.1 gm/dl (3.4-5.0) L 08/12/21 20:43 Globulin 4.1 gm/dl (2.5-4.0) H 08/12/21 20:43 Albumin/Globulin Ratio 0.5 (0.9-2) L 08/12/21: Lipase 55 U/L (73-393) L 08/12/21 20:43 Blood Type A Positive 08/12/21 20:43 Antibody Screen NEGATIVE 08/12/21: Crossmatch See Detail 08/12/21 20:[address] chest initial read: There is a Port-A-Cath in standard position on the right. The thoracic aorta is nondilated. This is a noncontrast study. There is fluid within the upper and midesophaguswhich is distended to 2.1 cmin diameter. There is a metallic stent extending through the lower esophagus into the stomach with abnormal thickening of the wall of the lower esophagus and proximal stomach suggesting neoplasm. There is at least one metallic clip at the superior margin of the stent. The configuration appears unchanged since previous. Small bilateral pleural effus ions layering 2.7 cmwith adjacent bibasilar atelectasis. There is a possible pulmonarynodule in the right middle lobe adjacent to the hilummeasuring 9 mm. The heart is not enlarged. No mediastinal or axillarylymphadenopathyor mass is seen. Limited images of the upper abdomen showa moderate amount of ascites. Moderate multilevel osteophytosis throughout the thoracic spine. No fracture or bone lesion. CT abdomen pelvis initial read: There are small bilateral pleural effusions measuring 3 4 cmwith bibasilar atelectasis. There is a metallic stent extending through the lower esophagus and into the proximal stomach with abnormal thickening of the wall of the lower esophagus and proximal stomach consistent with neoplasm. There is a moderate amount of free fluid throughout the peritoneal cavitymeasuring 3 cmthick adjacent to the liver and spleen. There is diffuse nodularityof the mesenteric fat adjacent to the fluid characteristic of peritoneal carcinomatosis. There are low-densityliver lesions measuring approximately3.3 cmin the left liver lobe and 2 cmin the right lower lobe consistent with metastasis. Mild right hydronephrosis. No ureterolithiasis or hydroureter is seen. Consider moderate UPJ obstruction. This is similar to previous. Incidental note is also made of a 8 cmleft renal cyst. Bowel loops are nondilated. No acute inflammatorychanges are seen involving the large or small bowel. The uterus appears to have been removed. The urinarybladder decompressed and unremarkable. Mild degenerative changes in the thoracic and lumbar spine. EKG as per my interpretation: Rate 110, sinus tachycardia, normal axis, nonspecific T wave abnormalities, low voltage
[2021-08-13 00:12] LABS: Base Excess VBG -6.7 mEq/L; Oxygen Saturation VBG 96.7 %; pH VBG 7.4 (7.36-7.41)
[2021-08-13 00:39] LABS: BUN Creatinine Ratio 21.3 (10-20); Creatinine Clr Calc Pharmacy 23.1 ml/min; Est GFR (African American) 21.8 ml/min; Est GFR (Non-African American) 18.8 ml/min; Potassium 4.2 mmol/L (3.5-5.1)
[2021-08-13] MEDS ORDERED: LACTATED RINGER'S 1,000 ML IV SCH (01:30)
[2021-08-13] MEDS ORDERED: DEXTROSE 50% 50 ML SYRINGE IV PRN (01:47)
[2021-08-13] MEDS ORDERED: LORazepam 0.5 MG TAB PO PRN (01:47)
[2021-08-13] MEDS ORDERED: CARBOHYDRATES FOR HYPOGLYCEMIA PO PRN (01:47)
[2021-08-13] MEDS ORDERED: PROMETHAZINE HCL 12.5 MG in SODIUM CHLORIDE 0.9% 50 ML IV PRN (01:47)
[2021-08-13] MEDS ORDERED: GLUCOSE 10 TABS/TUBE PO PRN (01:47)
[2021-08-13] MEDS ORDERED: GLUCOSE 40% GEL 15 GM TUBE PO PRN (01:47)
[2021-08-13] MEDS ORDERED: GLUCAGON FOR INJ 1 MG VIAL SQ PRN (01:47)
[2021-08-13] MEDS ORDERED: HYDROmorphone INJ 0.5 MG/0.5 ML SYR IV PRN (01:47)
[2021-08-13] MEDS: INSULIN ASPART 100 UNITS/ML 3 ML PEN SC SCH ×5 (02:09→20:43)
[2021-08-13] MEDS: PANTOprazole 40 MG in DEXTROSE 5% 100 ML IV SCH ×3 (02:23→12:09)
[2021-08-13] MEDS ORDERED: ALBUMIN 25% 100 mL 25 GM/100 ML VIAL IV ONE (04:45)
[2021-08-13 05:42] LABS: Albumin Level 1.8 gm/dl (3.4-5.0); BUN Creatinine Ratio 20.5 (10-20); Calcium 8.1 mg/dl (8.5-10.1); Creatinine Clr Calc Pharmacy 21.3 ml/min; Est GFR (Non-African American) 17.3 ml/min; Potassium 3.9 mmol/L (3.5-5.1)
[2021-08-13 05:45] LABS: Albumin Globulin Ratio 0.5 (0.9-2); Bilirubin,Total 0.5 mg/dl (0.2-1); Globulin 3.7 gm/dl (2.5-4.0); Total Protein 5.5 gm/dl (6.4-8.2)
[2021-08-13 05:46] LABS: Hematocrit (blood only) 34.8 % (37-47); Hemoglobin 11.4 g/dL (12.0-16.0); Mean Corpuscular Hemoglobin 33.9 pg (25-34); Mean Corpuscular Hgb Conc 32.8 g/dL (32-36); Mean Corpuscular Volume 103.6 fL (80-100); Mean Platelet Volume 10.1 fL (7.4-10.4); Platelet Count 218 K/uL (130-400); RDW Coefficient of Variation 23.5 % (11.5-14.5); RDW Standard Deviation 87.4 fL (36.4-46.3); Red Blood Count 3.36 M/uL (4.2-5.4); White Blood Count 7.32 K/uL (4.8-10.8)
[2021-08-13] MEDS ORDERED: ALBUMIN 25% 12.5 GM/50 ML VIAL IV SCH (06:00)
--- NOTE | 2021-08-13 07:03 | CT Scan Report ---
CT chest diagnostic wo con CLINICAL HISTORY: vomiting blood . Patient just discharged today. COMPARISON STUDY: 08/11/2021 TECHNIQUE: Standard CT of the Chest was performed without IV contrast. A dose lowering technique was utilized adhering to the principles of ALARA. FINDINGS: Airway: The airway is clear. No endobronchial lesion is identified. There is no change in the previou sly identified 1 cm tubular density within the lateral segment bronchus of the right middle lobe. Lungs and pleura: Compared to the previous examination, there is interval decrease in size and small bilateral pleural effusions. Mild compressive atelectasis again seen at the lung bases. The lungs are otherwise clear of acute alveolar opacities, air bronchograms or pulmonary nodules. Mediastinum: There is no evidence for pathologic adenopathy on these limited noncontrast images. A Po rt-A-Cath is in place. The heart size is within normal limits. The thoracic aorta is within normal li mits. There is no evidence for pericardial effusion. There is again a distal esophageal stent present extending into the stomach through a large mass at t he GE junction and extending into the fundus of the stomach. The stent is again filled with fluid and debris with distention of the more proximal esophagus with fluid and debris to the level of the thor acic inlet. This has increased since yesterday's examination. Findings are highly suspicious for obst ruction of the stent. Osseous structures: There is no acute osseous pathology. IMPRESSION: 1. Compared to the previous examination, increasing fluid and debris are seen within the patient's es ophageal stent and more proximal esophagus to the level of the thoracic inlet. The findings are highl y suspicious for obstruction of the stent. 2. Slight interval decrease in small bilateral pleural effusions with compressive atelectasis at both lung bases. 3. 1 cm tubular density within the lateral segmental bronchus of the right middle lobe, unchanged. 4. No other evidence for acute chest disease. Please see CT of the abdomen report for further evaluat ion. ACT 112: Negative or not required by law. Electronically signed by: Gary Ba M.D. 08/13/2021 7:01 AM
--- NOTE | 2021-08-13 07:20 | CT Scan Report ---
CT abd pelvis wo con CLINICAL HISTORY: vomiting blood . Patient discharged to day COMPARISON STUDY: 08/03/[address] of the chest from 08/11/2021 CT DOSE: 1231.17 mGy.cm TECHNIQUE: Standard CT of the Abdomen and Pelvis was performed without IV contrast. A dose lowering technique was utilized adhering to the principles of ALARA. FINDINGS: Lung base: Compared to the previous examination and seen on the CT the chest, there has been interva l placement of a esophageal stent extending through a large mass at the GE junction which extends int o the gastric fundus and body of the stomach. There is again fluid and debris present within the sten t with distention of the more proximal esophagus as described on the CT of the chest from 08/12/2021. Abdominal cavity: There is increase in the degree of moderate to marked ascites throughout the abdome n and pelvis. There is again evidence for omental and peritoneal metastases which are not as well-see n on these noncontrast images. Extensive periaortic, mesenteric and retroperitoneal adenopathy is aga in seen. Liver: There are again mass lesion seen within the liver characteristic of metastatic disease which a re again not as well seen on these noncontrast images.. Spleen: There are again mass is present within the spleen which also are not as well-seen on these no ncontrast images. Pancreas: The pancreas is homogeneous in attenuation on these limited noncontrast images. Gall Bladder: Surgical clips are present previous cholecystectomy. Adrenal glands: The adrenal glands are normal in size and attenuation on these limited noncontrast i mages. Kidneys: The kidneys are homogeneous in attenuation on these limited noncontrast images. There is aga in mild right-sided hydronephrosis which is unchanged. There is no left-sided hydronephrosis or calcu lillian. Incidental note is again made of a large left renal cyst. Bowel: The remaining bowel loops are normally placed within the abdomen and pelvis without evidence f or dilatation or obstruction. There is again evidence for diverticulosis without evidence for diverti culitis. Minimal radiopaque debris is seen within the colon from ingested material. There is no free air or inflammatory change. Bladder: There is no evidence for focal bladder wall thickening, calculus or diverticulum. : There is no evidence for pelvic mass or adenopathy. Vasculature:There is no evidence for focal aneurysmal dilatation of the abdominal aorta. Osseous structures: There is no acute osseous pathology. Extensive degenerative changes are seen wit hin the lumbar spine. IMPRESSION: 1. Compared to previous examination, there has been interval placement of a distal esophageal stent e xtending through a mass at the GE junction which extends into the gastric fundus. Fluid and debris ar e seen within the mass as described on concurrent CT of the chest from 08/12/2021. 2. Compared to the previous examination, there is increasing moderate to marked abdominal and pelvic ascites. 3. Diffuse metastatic disease is again seen and unchanged. 4. No other acute abnormality is identified. ACT 112: Negative or not required by law. Electronically signed by: Gary Ba M.D. 08/13/2021 7:19 AM
[2021-08-13 07:22] LABS: Appearance Urine Clear (Clear); Bacteria Urine Automated Negative (Negative); Blood Urine Negative (Negative); Color Urine Dark Yellow; Epithelial Cell Urine Auto >30 /lpf (0-5); Glucose Urine UA Negative (Negative); Ketones Urine Trace (Negative); Leukocyte Esterase Urine Trace (Negative); Nitrite Urine Negative (Negative); Protein Urine 1+ (Negative); Specific Gravity Urine 1.024 (1.000-1.030); Urobilinogen Urine Negative (Negative)
[2021-08-13 07:38] LABS: Bilirubin Urine 1+ (Negative)
[2021-08-13 07:43] LABS: Anisocytosis Present; Basophils # (auto) 0.01 K/uL (0-0.2); Basophils % (auto) 0.1 %; Immature Granulocytes # (auto) 0.02 K/uL (0.00-0.02); Immature Granulocytes % (auto) 0.3 %; Lymphocytes # (auto) 0.74 K/uL (1.2-3.4); Lymphocytes % (auto) 10.1 %; Macrocytosis Present; Monocytes # (auto) 0.53 K/uL (0.11-0.59); Monocytes % (auto) 7.2 %; Neutrophils # (auto) 6.02 K/uL (1.4-6.5); Neutrophils % (auto) 82.3 %; Polychromasia 1+
[2021-08-13] MEDS: ALBUMIN 25% 100 mL 25 GM/100 ML VIAL IV SCH ×2 (08:45→11:47)
--- NOTE | 2021-08-13 08:58 | Gastrointestinal Consultation ---
Date of Consultation August 13, 2021 Assessment & Plan (1) UGIB (upper gastrointestinal bleed): 65 year old female with h/o metastatic ovarian cancer admitted w/ acute saddle PE s/p EGD w/ esophageal stent for extrinsic moderate stenosis was found at the gastroesophageal junction with evidence of submucosal infiltration by underlying ovarian malignancy readmitted w/ hematemesis. Hemodynamically stable, transfused x 1 unit, w/ stable HGB pre and post transfusion Urgent paracentesis for fluid off before EGD w/ albumin 25% 50 g Arrange EGD in OR for evaluation of esophageal stent Continue IV PPI as ordered Continue supportive measures Thank you for allowing us to participate in the care of this patient. Please call with any acute changes, questions or concerns. Please see addendum below with additional recommendation from my supervising physician. Supervising Physician Co-Signing Physician Notes I performed a history and physical examination of the patient today, including specifically on physical exam - soft abdomen. I have discussed the patient's management with the advanced practitioner. Please refer to the nurse practitioner's note for the documented findings and plan of care. patient was doing well till she was started on DOACS and presented with hematemesis, her H/H remained stable. She is getting an IVC filter today. CT scan showed stent in place. EGD today to evaluate the source of bleeding and fluid filled esophagus on CT scan. Patient was explained in detail regarding risks, benefits, limitations and alternatives of the above endoscopic procedure. Risks of intravenous sedation used for procedure were also explained. Risks include, but not limited to perforation, bleeding, infection, respiratory distress, cardiac arrest and . Patient is also aware about the possibility of missed lesion. Patient's questions were answered. The patient verbalized understanding the information and agreed to undergo the procedure. History of Present Illness Reason for Consultation: hematemesis Requesting Physician: Elan Attending Physician: David Ansari MD History of Present Illness 65 year old female with h/o metastatic ovarian cancer admitted w/ acute saddle PE s/p EGD w/ esophageal stent for extrinsic moderate stenosis was found at the gastroesophageal junction with evidence of submucosal infiltration by underlying ovarian malignancy readmitted w/ hematemesis. Discharged yesterday, was feeling well. Had some liquids, felt nauseous vomited about 500CC of blood. Since admission has had small volume bloody emesis. No abd pain. No black or stools. Allergies Allergy/AdvReac Type Severity Reaction Status Date / Time No Known Allergies Allergy Verified 08/12/21 22:17 Home Medications Medication Instructions Recorded Confirmed Type lisinopril 10 mg tablet 10 mg PO QAM 08/27/18 08/12/21 History lorazepam 0.5 mg tablet 0.5 mg PO TID PRN 08/27/18 08/12/21 History metformin 500 mg tablet 1,000 mg PO BID 08/27/18 08/12/21 History multivitamin 1 tab PO QAM 08/27/18 08/12/21 History simvastatin 20 mg tablet 20 mg PO PM 08/27/18 08/12/21 History zolpidem 10 mg tablet 1 tab PO HS 08/27/18 08/12/21 History prochlorperazine maleate 5 mg 5 mg PO TID PRN 06/18/21 08/12/21 History tablet (Compazine) olanzapine 2.5 mg tablet 2.5 mg PO HS 08/03/21 08/12/21 History oxycodone 5 mg tablet 5 mg PO Q4 PRN 08/03/21 08/12/21 History apixaban 5 mg tablet (Eliquis) 5 mg PO UD #74 tab 08/12/21 08/12/21 Rx ondansetron HCl 8 mg tablet 8 mg PO UD PRN 08/12/21 08/12/21 History pantoprazole 40 mg tablet,delayed 40 mg PO BID #60 tab 08/12/21 08/12/21 Rx release Patient History Medical History Acute saddle pulmonary embolism 08/03/21 Anemia Anxiety CKD (chronic kidney disease), stage III Degenerative disc disease Diabetes mellitus, type 2 History of anesthesia reaction difficulty waking after cataract surgery Hyperlipidemia Hypertension Metastatic disease ovarian cancer with 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 Treated with systemic chemotherapy. Continued surveillance and finding of lymphadenopathy/nodule of the pelvis February 23, 2018 Status post fine-needle aspiration April 18, 2018 revealing metastatic adenocarcinoma consistent with ovarian origin. Status post completion of stereotactic body radiation therapy June 04, 2018. 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 Treated with systemic chemotherapy. Continued surveillance and finding of lymphadenopathy/nodule of the pelvis February 23, 2018 Status post fine-needle aspiration April 18, 2018 revealing metastatic adenocarcinoma consistent with ovarian origin." Surgical History History of bilateral cataract extraction History of cholecystectomy History of esophagogastroduodenoscopy (EGD) History of tonsillectomy and adenoidectomy History of tooth extraction wisdom teeth History of total abdominal hysterectomy and bilateral salpingo-oophorectomy 2013 Hx of inguinal hernia repair unsure which side Family History Grandmother Family history of diabetes mellitus maternal Social History Smoking Status: Former smoker Tobacco Type: Cigarettes Smoking End Date: 20 years ago; Second Hand Exposure: Yes (parents smoked); Hx Alcohol Use: No Hx Substance Use: No Preferred Language: Montenegrin Communication Ability: Effective 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 Beliefs That Will Affect Care: None marital status: Current Living Situation: Alone Other Information That Helps Us Care for You: No Feels Safe at Home: Yes Safety Concerns: Feels Safe At This Time Assistive Devices: Glasses Review of Systems Review of Systems: All systems reviewed & are unremarkable except as noted in HPI & below Physical Exam Constitutional: WD/WN, vitals as above Neck: trachea midline, no thyromegaly Respiratory: normal respiratory effort; no respiratory distress and no labored breathing Cardiovascular: Rate/Rhythm: regular rate and regular rhythm Gastrointestinal (Abdomen): normal bowel sounds, soft, nontender, no hepatosplenomegaly Skin: no rashes, warm and dry Results & Data ([facility]) Vital Signs (Past 12 Hours) Vital Signs Temp Pulse Pulse Resp BP BP Pulse Ox 08/13/21 06:00 83 19 122/80 89 L 08/13/21 05:00 92 H 19 122/77 95 08/13/21 04:00 92 H 19 104/81 95 08/13/21 03:30 80 17 104/81 91 08/13/21 03:00 84 21 109/82 86 L 08/13/21 02:30 86 22 102/83 89 L 08/13/21 02:00 91 H 19 103/80 94 08/13/21 01:47 93 H 08/13/21 01:45 94 H 22 112/68 96 08/13/21 01:43 36.4 C L 96 H 18 163/69 H 98 08/13/21 00:30 36.5 C 92 H 20 104/65 100 08/13/21 00:15 36.5 C 92 H 18 105/54 L 99 08/12/21 23:45 36.7 C 92 H 20 112/77 95 08/12/21 23:29 36.7 C 97 H 20 122/72 98 08/12/21 23:00 97 H 16 113/69 97 08/12/21 22:30 104 H 24 121/84 96 08/12/21 22:08 104 H 24 121/81 95 08/12/21 21:23 97 08/12/21 21:00 105 H 20 106/72 96 Pulse Ox 08/13/21 06:00 08/13/21 05:00 08/13/21 04:00 08/13/21 03:30 08/13/21 03:00 08/13/21 02:30 08/13/21 02:00 08/13/21 01:47 93 08/13/21 01:45 08/13/21 01:43 08/13/21 00:30 08/13/21 00:15 08/12/21 23:45 08/12/21 23:29 08/12/21 23:00 08/12/21 22:30 08/12/21 22:08 08/12/21 21:23 08/12/21 21:00
[2021-08-13] MEDS ORDERED: predniSONE 20 MG TAB PO SCH (09:00)
--- NOTE | 2021-08-13 09:02 | Consultation ---
Date of Consultation August 13, 2021 Assessment & Plan (1) Pulmonary emboli: Pt with recent PE and BLE DVT, now with GI bleeding. Pt discussed with Dr Danielson, recommends pt undergo IVC filter insertion later today. Procedure, risks, benefits, and alternatives discussed with pt at Dr Danielson's request, pt is agreeable to procedure and signed consent. Acute cor pulmonale presence: unspecified Chronicity: unspecified Pulmonary embolism type: unspecified Qualified Code(s): I26.99 - Other pulmonary embolism without acute cor pulmonale History of Present Illness Reason for Consultation: DVT/PE, GI bleed Attending Physician: David Ansari MD History of Present Illness 65 yo f with multiple medical problems, including DMII, CKD, HTN, and metastatic ovarian ca, admitted with GI bleed, seen in consultation today for possible IVC filter insertion. Pt had previous admission up to yesterday when she signed out AMA, during which she was noted to have saddle PE and BLE DVT and was started on eliquis. She developed coffee ground emesis yesterday, and came back to ED, and AC was stopped. Pt admits N/V presently, malaise, fatigue. Denies MCCARTHY, fever, chest pain, claudication, rest pain, ulcerations, other complaints. Allergies Allergy/AdvReac Type Severity Reaction Status Date / Time No Known Allergies Allergy Verified 08/12/21 22:17 Home Medications Medication Instructions Recorded Confirmed Type lisinopril 10 mg tablet 10 mg PO QAM 08/27/18 08/12/21 History lorazepam 0.5 mg tablet 0.5 mg PO TID PRN 08/27/18 08/12/21 History metformin 500 mg tablet 1,000 mg PO BID 08/27/18 08/12/21 History multivitamin 1 tab PO QAM 08/27/18 08/12/21 History simvastatin 20 mg tablet 20 mg PO PM 08/27/18 08/12/21 History zolpidem 10 mg tablet 1 tab PO HS 08/27/18 08/12/21 History prochlorperazine maleate 5 mg 5 mg PO TID PRN 06/18/21 08/12/21 History tablet (Compazine) olanzapine 2.5 mg tablet 2.5 mg PO HS 08/03/21 08/12/21 History oxycodone 5 mg tablet 5 mg PO Q4 PRN 08/03/21 08/12/21 History apixaban 5 mg tablet (Eliquis) 5 mg PO UD #74 tab 08/12/21 08/12/21 Rx ondansetron HCl 8 mg tablet 8 mg PO UD PRN 08/12/21 08/12/21 History pantoprazole 40 mg tablet,delayed 40 mg PO BID #60 tab 08/12/21 08/12/21 Rx release Patient History Medical History Acute saddle pulmonary embolism 08/03/21 Anemia Anxiety CKD (chronic kidney disease), stage III Degenerative disc disease Diabetes mellitus, type 2 History of anesthesia reaction difficulty waking after cataract surgery Hyperlipidemia Hypertension Metastatic disease ovarian cancer with mets to liver and spleen Ovarian ca (06/19/14) "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 Treated with systemic chemotherapy. Continued surveillance and finding of lymphadenopathy/nodule of the pelvis February 23, 2018 Status post fine-needle aspiration April 18, 2018 revealing metastatic adenocarcinoma consistent with ovarian origin. Status post completion of stereotactic body radiation therapy June 04, 2018. 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 Treated with systemic chemotherapy. Continued surveillance and finding of lymphadenopathy/nodule of the pelvis February 23, 2018 Status post fine-needle aspiration April 18, 2018 revealing metastatic adenocarcinoma consistent with ovarian origin." Surgical History History of bilateral cataract extraction History of cholecystectomy History of esophagogastroduodenoscopy (EGD) History of tonsillectomy and adenoidectomy History of tooth extraction wisdom teeth History of total abdominal hysterectomy and bilateral salpingo-oophorectomy 2013 Hx of inguinal hernia repair unsure which side Family History Grandmother Family history of diabetes mellitus maternal Social History Smoking Status: Former smoker Tobacco Type: Cigarettes Smoking End Date: 20 years ago; Second Hand Exposure: Yes (parents smoked); Hx Alcohol Use: No Hx Substance Use: No Preferred Language: Latvian Communication Ability: Effective 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 Beliefs That Will Affect Care: None marital status: Current Living Situation: Alone Other Information That Helps Us Care for You: No Feels Safe at Home: Yes Safety Concerns: Feels Safe At This Time Assistive Devices: Glasses Review of Systems Review of Systems: 14 systems reviewed and negative aside from HPI Physical Exam Constitutional: WD/WN, vitals as above + frail appearing and cooperative; not in distress ENMT: Ears: no hearing impairment Neck: trachea midline Respiratory: normal respiratory effort; no respiratory distress Auscultation: lungs clear to auscultation bilaterally and + diminished lung sounds Cardiovascular: Rate/Rhythm: regular rate and regular rhythm Vessels: femoral pulses present, posterior tibial pulses present, dorsalis pedis pulses present and radial pulses present; + abnormal peripheral pulses Extremities: normal capillary refill, + edema (abd, mild BLE) and + vascular access device (R IJ infusaport noted) Gastrointestinal (Abdomen): Inspection/Auscultation: + abdomen distended and + abdominal edema Percussion/Palpation: + abdomen tender and + ascites Musculoskeletal: no cyanosis or clubbing, extremities motor strength 5/5 Skin: no rashes, warm and dry Neurologic: moves all extremities and awake; no focal motor deficits and not confused Psychiatric: Orientation: alert and oriented x 3 Affect: + depressed affect Results & Data ([place]) Vital Signs (Past 12 Hours) Vital Signs Temp Pulse Pulse Resp BP BP Pulse Ox 08/13/21 06:00 83 19 122/80 89 L 08/13/21 05:00 92 H 19 122/77 95 08/13/21 04:00 92 H 19 104/81 95 08/13/21 03:30 80 17 104/81 91 08/13/21 03:00 84 21 109/82 86 L 08/13/21 02:30 86 22 102/83 89 L 08/13/21 02:00 91 H 19 103/80 94 08/13/21 01:47 93 H 08/13/21 01:45 94 H 22 112/68 96 08/13/21 01:43 36.4 C L 96 H 18 163/69 H 98 08/13/21 00:30 36.5 C 92 H 20 104/65 100 08/13/21 00:15 36.5 C 92 H 18 105/54 L 99 08/12/21 23:45 36.7 C 92 H 20 112/77 95 08/12/21 23:29 36.7 C 97 H 20 122/72 98 08/12/21 23:00 97 H 16 113/69 97 08/12/21 22:30 104 H 24 121/84 96 08/12/21 22:08 104 H 24 121/81 95 08/12/21 21:23 97 08/12/21 21:00 105 H 20 106/72 96 Pulse Ox 08/13/21 06:00 08/13/21 05:00 08/13/21 04:00 08/13/21 03:30 08/13/21 03:00 08/13/21 02:30 08/13/21 02:00 08/13/21 01:47 93 08/13/21 01:45 08/13/21 01:43 08/13/21 00:30 08/13/21 00:15 08/12/21 23:45 08/12/21 23:29 08/12/21 23:00 08/12/21 22:30 08/12/21 22:08 08/12/21 21:23 08/12/21 21:00
[2021-08-13] MEDS: MULTIVITAMIN TAB PO SCH (09:14)
--- NOTE | 2021-08-13 10:54 | Anesthesiology Consultation ---
Date of Service August 13, 2021 Assessment & Plan Chart Review Chart Review: Acceptable Risk for Surgery and Patient NOT seen in Pre Admission Testing Consults Requested none ASA [id number] Proposed Anesthesia Anesthesia Type: General History Surgery Operation Date: 08/13/21 12:05 Proposed Procedures p Esophagogastroduodenoscopy - Goyo Villareal MD Operation Date: 08/13/21 13:20 Proposed Procedures p Inferior Vena Cava Filter Placement - Sidney Danielson MD Operation Date: 08/13/21 16:30 Proposed Procedures p Esophagogastroduodenoscopy Dr Villareal - Goyo Villareal MD Height/Weight Height: 5 ft 5 in Weight: 83.2 kg Allergies Allergy/AdvReac Type Severity Reaction Status Date / Time No Known Allergies Allergy Verified 08/12/21 22:17 Medications Home Medications Medication Instructions Recorded Confirmed Last Taken lisinopril 10 mg tablet 10 mg PO QAM 08/27/18 08/12/21 08/03/21 lorazepam 0.5 mg tablet 0.5 mg PO TID PRN 08/27/18 08/12/21 08/22/18 21:00 metformin 500 mg tablet 1,000 mg PO BID 08/27/18 08/12/21 08/02/21 on hold for testing multivitamin 1 tab PO QAM 08/27/18 08/12/21 08/03/21 simvastatin 20 mg tablet 20 mg PO PM 08/27/18 08/12/21 08/02/21 zolpidem 10 mg tablet 1 tab PO HS 08/27/18 08/12/21 08/02/21 prochlorperazine maleate 5 mg 5 mg PO TID PRN 06/18/21 08/12/21 Unknown tablet (Compazine) olanzapine 2.5 mg tablet 2.5 mg PO HS 08/03/21 08/12/21 08/02/21 oxycodone 5 mg tablet 5 mg PO Q4 PRN 08/03/21 08/12/21 Unknown apixaban 5 mg tablet (Eliquis) 5 mg PO UD #74 tab 08/12/21 08/12/21 Unknown ondansetron HCl 8 mg tablet 8 mg PO UD PRN 08/12/21 08/12/21 Unknown pantoprazole 40 mg tablet,delayed 40 mg PO BID #60 tab 08/12/21 08/12/21 Unknown release Active Medications Generic Name Dose Route Start Last Admin Trade Name Freq PRN Reason Stop Dose Admin Pantoprazole Sodium 40 mg/ 100 mls @ 20 mls/hr 08/12/21 21:45 08/13/21 07:22 Dextrose IV 09/11/21 21:44 8 mg/hr Q5H FERNANDO 20 mls/hr Administration 8 MG/HR Albumin Human 25 gm in 100 mls @ 50 mls/hr 08/13/21 08:30 08/13/21 08:45 Albumin 25% 100 Ml IV 08/13/21 12:29 50 mls/hr Q2H FERNANDO Administration Insulin Aspart 0 units 08/13/21 02:00 08/13/21 08:42 Insulin Aspart 100 Units/Ml 3 Ml Pen SC 09/12/21 01:59 Not Given ACHS FERNANDO Multivitamins 1 tab 08/13/21 09:00 08/13/21 09:14 Multivitamin Tab PO 09/12/21 08:59 Not Given QAM FERNANDO Past Medical History Medical History Acute saddle pulmonary embolism 08/03/21 Anemia Anxiety CKD (chronic kidney disease), stage III Degenerative disc disease Diabetes mellitus, type 2 History of anesthesia reaction difficulty waking after cataract surgery Hyperlipidemia Hypertension Metastatic disease ovarian cancer with 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 Treated with systemic chemotherapy. Continued surveillance and finding of lymphadenopathy/nodule of the pelvis February 23, 2018 Status post fine-needle aspiration April 18, 2018 revealing metastatic adenocarcinoma consistent with ovarian origin. Status post completion of stereotactic body radiation therapy June 04, 2018. 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 Treated with systemic chemotherapy. Continued surveillance and finding of lymphadenopathy/nodule of the pelvis February 23, 2018 Status post fine-needle aspiration April 18, 2018 revealing metastatic adenocarcinoma consistent with ovarian origin." Exercise / Class Metabolic Activity III < 4 Walking/Shop/Light housework Past Family History Family History Grandmother Family history of diabetes mellitus maternal Past Surgical History Surgical History History of bilateral cataract extraction History of cholecystectomy History of esophagogastroduodenoscopy (EGD) History of tonsillectomy and adenoidectomy History of tooth extraction wisdom teeth History of total abdominal hysterectomy and bilateral salpingo-oophorectomy 2013 Hx of inguinal hernia repair unsure which side Past Anesthesia History No Hx of Anesthesia Complications and No Family Hx of Anesthesia Complications History of PONV History of PONV and Hx of Motion Sickness Social History Smoking Status: Former smoker Smoking End Date: 20 years ago Hx Alcohol Use: No Hx Substance Use: No substance use type: does not use Physical Exam Vital Signs Last Vital Signs Temp 36.4 C L 08/13/21 01:43 Pulse 83 08/13/21 06:00 Resp 19 08/13/21 06:00 BP 122/80 08/13/21 06:00 Pulse Ox 89 L 08/13/21 06:00 Testing Laboratory Results 08/13/21 04:48 08/13/21 04:48 PT 12.3 Seconds (9.0-12.0) H 08/12/21 21:48 INR 1.2 (0.9-1.1) H 08/12/21 21:48 APTT 43.1 Seconds (21.0-31.0) H 08/12/21 21:48 Urine Color Dark Yellow 08/13/21 06:50 Urine Appearance Clear (Clear) 08/13/21 06:50 Urine pH 5.0 (4.5-7.5) 08/13/21 06:50 Ur Specific [place] 1.024 (1.000-1.030) 08/13/21 06:50 Urine Protein 1+ (Negative) H 08/13/21 06:50 Urine Glucose (UA) Negative (Negative) 08/13/21 06:50 Urine Ketones Trace (Negative) H 08/13/21 06:50 Urine Nitrite Negative (Negative) 08/13/21 06:50 Ur Leukocyte Esterase Trace (Negative) H 08/13/21 06:50 Urine WBC (Auto) 1-5 /hpf (0-5) 08/13/21 06:50 Urine RBC (Auto) 5-10 /hpf (0-4) H 08/13/21 06:50 U Hyaline Cast (Auto) 5-10 /lpf (0-5) H 08/13/21 06:50 U Epithel Cells (Auto) >30 /lpf (0-5) H 08/13/21 06:50 Urine Bacteria (Auto) Negative (Negative) 08/13/21 06:50 Blood Type A Positive 08/12/21 20:43 Antibody Screen NEGATIVE 08/12/21 20:43 08/13/21 08/13/21 07:41 01:54 POC Glucose 126 H 130 H Electrocardiogram Date: 08/12/21 Findings: + NSST changes and + ST @ (111;low voltage QRS) Chest X-Ray Date: 08/08/21 Findings: + infiltrate (B/L lower lung airspace opacities) and + pleural effusion (B/L small ) Echocardiogram Date: 08/03/21 EF: 60% LV Function: normal RWMA: + none Valvular Disease: + pertinent finding (mild TN)
--- NOTE | 2021-08-13 11:12 | History & Physical Bridge Note ---
Date of Service August 13, 2021 History & Physical Bridge Note Patient for insertion of an IVC filter. Consent was obtained by the vascular PA under my permission. I have also discussed the risks options and benefits of the procedure with the patient. The patient understands the risks options and benefits and agrees to the procedure. I have examined the patient, reviewed the History & Physical and in the interval since the performance of the History & Physical I have noted the following changes of clinical significance: no changes noted
--- NOTE | 2021-08-13 11:23 | Ultrasound Report ---
US paracentesis abd w/image CLINICAL HISTORY: 65 years-old Female with ascites, remove prior to EGD, no fluid studies nee. Recur rent ascites. COMPARISON: CT abdomen and pelvis 08/12/2021 PROCEDURE: The procedure was explained to the patient in the care including the benefits and possible risks/complications. The patient gave verbal understanding and written consent was obtained. A time -out was performed prior to the start of the procedure. The patient was placed on the ultrasound table in the supine position. Using ultrasound guidance, an appropriate procedure site in the left lower abdomen was marked. This area was then prepped and drape d in the usual sterile fashion. Local anesthesia was achieved within 1% lidocaine. An 8-Cymraes AirWatch is catheter was attempted to be inserted, however secondary to the peritoneal thickening was difficul t to be inserted into the abdominal cavity. The secondary 20-gauge trocar needle was used. Approximat guillermina 3.5 liters of clear, yellowish fluid was removed for therapeutic purposes only. The patient exper ienced nausea before and during the procedure, therefore the needle was then removed secondary to pat ient actively vomiting. The catheter was removed and external pressure was held to achieve hemostasis . A sterile dressing was applied to the procedure site. The patient tolerated the procedure well with out immediate complications. IMPRESSION: Successful ultrasound-guided paracentesis with removal of 3.5 L ascitic fluid. ACT 112: Negative or not required by law. The above report was generated using voice recognition software. It may contain grammatical, syntax o r spelling errors. Electronically signed by: Mariano Hurd M.D. 08/13/2021 11:22 AM
[2021-08-13] MEDS: ALBUMIN 25% 12.5 GM/50 ML VIAL IV SCH ×3 (11:34→17:16)
[2021-08-13] MEDS ORDERED: PROPOFOL IV EMULSION 10 MG/ML 20 ML VIAL IV ONE (11:47)
[2021-08-13] MEDS ORDERED: fentaNYL citrate 100 MCG/2 ML VIAL ONE (11:47)
[2021-08-13] MEDS ORDERED: LIDOCAINE 2% 2 ML VIAL/AMP(20MG/ML) INFIL ONE (11:47)
[2021-08-13] MEDS ORDERED: ROCURONIUM BROMIDE 10 MG/ML 5 ML VIAL IV ONE (11:47)
[2021-08-13] MEDS ORDERED: SUCCINYLCHOLINE 100MG/5ML SYR IV ONE (12:19)
[2021-08-13] MEDS ORDERED: ONDANSETRON INJ 2 MG/ML 2 ML VIAL ONE (12:25)
[2021-08-13] MEDS ORDERED: DEXAMETHASONE SOD INJ 4 MG/ML VIAL ONE (12:25)
--- NOTE | 2021-08-13 12:27 | Operative Report ---
Post Operative Report Pre & Post Diagnosis Operation Date: 08/13/21 12:05 <No data on this case meets the specified criteria> Operation Date: 08/13/21 13:20 Pre-Op Diagnosis: deep vein thrombosis, contraindication to anticoagulation Post-Op Diagnosis: deep vein thrombosis, contraindication to anticoagulation Operation Date: 08/13/21 16:30 <No data on this case meets the specified criteria> I identified the patient and participated in the time-out.: Yes Procedure Operation Date: 08/13/21 12:05 <No data on this case meets the specified criteria> Operation Date: 08/13/21 13:20 Actual Procedures p Insertion of Vena Cava Filter, Right Femoral Approach, Ultrasound Localization of Right Internal Femoral Vein, Fluroscopy for Positioning(Right) - Sidney Danielson MD Operation Date: 08/13/21 16:30 <No data on this case meets the specified criteria> Surgeon Sidney Danielson MD Hotel General Manager None Estimated Blood Loss 0 Findings Consistent with Post-Op Diagnosis Specimens None Anesthesia Type General Complications none Disposition Accompanied Patient To Recovery: No Disposition: PCU Indications This is a 65-year-old female who was admitted with a GI bleed. She does have a deep venous thrombosis being treated with anticoagulation. Anticoagulation is now contraindicated due to her GI bleeding. Filter was recommended. I have discussed the risks options and benefits of the procedure with the patient. The patient understands the risks options and benefits and agrees to the procedure. Description of Procedure The patient was brought to the angio suite and placed in the supine position. The patient was identified and a timeout performed. The right groin was prepped and draped in the usual fashion. The right femoral vein was located with ultrasound. It was patent, compressed easily, and had no filling defects. The vein was then punctured under ultrasound visualization. A guidewire was then passed centrally into the inferior vena cava under fluoroscopic guidance. The puncture site was then dilated and the filter sheath inserted. It was passed to the infra renal vena cava. A venacavagram was done which showed no cava clot and an acceptable size. The renal veins were identified. The filter was then passed through the sheath and deployed in the infra renal vena cava in an upright position. Satisfied with the positioning of the filter, the sheath was removed. Pressure was applied to the puncture site. Adequate hemostasis was obtained and a sterile dressing was applied. The patient left the operation room in satisfactory condition and tolerated the procedure well. All needle and sponge counts were correct at the end of the procedure. I attest to the content of the Intraoperative Record and any orders documented therein. Any exceptions are noted below.
--- NOTE | 2021-08-13 12:41 | Operative Report ---
Post Operative Report Pre & Post Diagnosis Operation Date: 08/13/21 12:05 <No data on this case meets the specified criteria> Operation Date: 08/13/21 13:20 Pre-Op Diagnosis: deep vein thrombosis, contraindication to anticoagulation Post-Op Diagnosis: deep vein thrombosis, contraindication to anticoagulation Operation Date: 08/13/21 16:30 <No data on this case meets the specified criteria> I identified the patient and participated in the time-out.: Yes Procedure Operation Date: 08/13/21 12:05 Actual Procedures p Esophagogastroduodenoscopy - Goyo Villareal MD Operation Date: 08/13/21 13:20 Actual Procedures p Insertion of Vena Cava Filter, Right Femoral Approach, Ultrasound Localization of Right Internal Femoral Vein, Fluroscopy for Positioning(Right) - Sidney Danielson MD Operation Date: 08/13/21 16:30 <No data on this case meets the specified criteria> Surgeon Goyo Villareal MD Melter Loader None Estimated Blood Loss 0 Findings See Below (Esophageal stent removed due to gastric erosions around the stent) Specimens None Description of Procedure EGD I attest to the content of the Intraoperative Record and any orders documented therein. Any exceptions are noted below.
[2021-08-13] MEDS ORDERED: LIDOCAINE 1% LOCAL 20 ML VIAL INJ ONE (12:45)
--- NOTE | 2021-08-13 13:25 | GI REPORT ---
Patient Name: Ania Hoskins Procedure Date: 08/13/2021 11:50 AM Date of : 1955 Admit Type: Inpatient Age: 65 Gender: Female Attending MD: Goyo Villareal MD Procedure: Upper GI endoscopy Providers: Goyo Villareal MD Referring MD: Ismael Navas Indications: Hematemesis Medicines: General Anesthesia Complications: No immediate complications. Estimated Blood Loss: Estimated blood loss: none. Procedure: Pre-Anesthesia Assessment: - Prior to the procedure, a History and Physical was performed, and patient medications, allergies and sensitivities were reviewed. The patient's tolerance of previous anesthesia was reviewed. - The risks and benefits of the procedure and the sedation options and risks were discussed with the patient. All questions were answered and informed consent was obtained. - Patient identification and proposed procedure were verified prior to the procedure by the physician and the nurse. The procedure was verified in the procedure room. - Pre-procedure physical examination revealed no contraindications to sedation. After obtaining informed consent, the endoscope was passed under direct vision. Throughout the procedure, the patient's blood pressure, pulse, and oxygen saturations were monitored continuously. The Endoscope was introduced through the mouth, and advanced to the second part of duodenum. The upper GI endoscopy was accomplished without difficulty. The patient tolerated the procedure well. Findings: An esophageal stent was found in the lower third of the esophagus. Stent removal was accomplished with a rat-toothed forceps. Esophagitis with no bleeding was found in the lower third of the esophagus after stent removal. Submucosal malignancy noted. Localized moderate inflammation characterized by adherent blood was found in the gastric body at the area were the distal end of the stent was in contact with the gastric wall, likely due to her coagulopathy. No active bleeding seen. The duodenal bulb and second portion of the duodenum were normal. Impression: - No active GI bleeding. - Pre-existing esophageal stent, removed given patient need for anticoagulation and risk of recurrent bleeding from the stent. - Esophagitis. - Gastritis. - Normal duodenal bulb and second portion of the duodenum. Recommendation: - Return patient to ICU for ongoing care. - Clear liquid diet today then advance to full liquids for one day then as tolerated. - No ibuprofen, naproxen, or other non-steroidal anti-inflammatory drugs. - Use a proton pump inhibitor IV daily for 2 days then switch to PO BID. - Use sucralfate suspension 1 gram PO BID for 2 weeks. - If patient's dysphagia recurs then she will need a surgical PEG tube placement due to ascites. Goyo Villareal MD 08/13/2021 1:24:28 PM This report has been signed electronically. Note Initiated On: 08/13/2021 11:50 AM Number of Addenda: 0 I attest to the content of the Intraoperative Record and orders documented therein, exceptions below {[id number]}
--- NOTE | 2021-08-13 13:33 | Anesthesiology Progress Note ---
Date of Service August 13, 2021 Anesthesia Post Procedure Vital Signs Vital Signs: Temp Pulse Pulse Resp BP BP Pulse Ox 08/13/21 13:25 36.5 C 85 20 110/65 92 08/13/21 13:15 82 19 128/72 93 08/13/21 13:05 87 19 112/70 93 08/13/21 12:55 89 20 116/71 96 08/13/21 12:48 36.5 C 87 21 123/72 96 08/13/21 12:10 36.6 C 87 20 119/71 93 08/13/21 11:00 36.9 C 86 88 20 119/71 119/71 92 08/13/21 10:50 89 17 95 08/13/21 10:40 86 21 92 08/13/21 10:30 85 22 108/66 93 08/13/21 10:20 96 08/13/21 08:50 92 H 18 98 08/13/21 08:40 90 14 95 08/13/21 08:30 89 20 93 08/13/21 08:20 92 H 19 95 08/13/21 08:10 91 H 20 94 08/13/21 08:00 92 H 19 106/89 96 08/13/21 07:50 90 20 95 08/13/21 07:40 92 H 19 94 08/13/21 07:30 89 18 89 L 08/13/21 07:20 85 23 95 08/13/21 07:10 89 17 95 08/13/21 07:00 94 H 21 85 L 08/13/21 06:50 101 H 17 94 08/13/21 06:40 93 H 21 94 08/13/21 06:30 89 20 117/71 94 08/13/21 06:20 90 21 94 08/13/21 06:10 92 H 20 93 08/13/21 06:00 83 19 122/80 89 L 08/13/21 05:00 92 H 19 122/77 95 08/13/21 04:00 92 H 19 104/81 95 08/13/21 03:30 80 17 104/81 91 08/13/21 03:00 84 21 109/82 86 L 08/13/21 02:30 86 22 102/83 89 L 08/13/21 02:00 91 H 19 103/80 94 08/13/21 01:47 93 H 08/13/21 01:45 94 H 22 112/68 96 08/13/21 01:43 36.4 C L 96 H 18 163/69 H 98 08/13/21 00:30 36.5 C 92 H 20 104/65 100 08/13/21 00:15 36.5 C 92 H 18 105/54 L 99 08/12/21 23:45 36.7 C 92 H 20 112/77 95 08/12/21 23:29 36.7 C 97 H 20 122/72 98 08/12/21 23:00 97 H 16 113/69 97 08/12/21 22:30 104 H 24 121/84 96 08/12/21 22:08 104 H 24 121/81 95 08/12/21 21:23 97 08/12/21 21:00 105 H 20 106/72 96 08/12/21 20:34 36.6 C 112 H 20 118/80 95 Pulse Ox 08/13/21 13:25 08/13/21 13:15 08/13/21 13:05 08/13/21 12:55 08/13/21 12:48 08/13/21 12:10 08/13/21 11:00 08/13/21 10:50 08/13/21 10:40 08/13/21 10:30 08/13/21 10:20 08/13/21 08:50 08/13/21 08:40 08/13/21 08:30 08/13/21 08:20 08/13/21 08:10 08/13/21 08:00 08/13/21 07:50 08/13/21 07:40 08/13/21 07:30 08/13/21 07:20 08/13/21 07:10 08/13/21 07:00 08/13/21 06:50 08/13/21 06:40 08/13/21 06:30 08/13/21 06:20 08/13/21 06:10 08/13/21 06:00 08/13/21 05:00 08/13/21 04:00 08/13/21 03:30 08/13/21 03:00 08/13/21 02:30 08/13/21 02:00 08/13/21 01:47 93 08/13/21 01:45 08/13/21 01:43 08/13/21 00:30 08/13/21 00:15 08/12/21 23:45 08/12/21 23:29 08/12/21 23:00 08/12/21 22:30 08/12/21 22:08 08/12/21 21:23 08/12/21 21:00 08/12/21 20:34 Transfer of Care Handoff Completed per policy Notes Mental Status: alert / awake / arousable and participated in evaluation Patient Amnestic to Procedure: Yes Nausea / Vomiting: adequately controlled Pain: adequately controlled Airway Patency, RR, SpO2: stable & adequate BP & HR: stable & adequate Hydration State: stable & adequate Anesthetic Complications: no major complications apparent and Pt Satisfied with anesthetic care
[2021-08-13 14:12] LABS: Hematocrit (blood only) 30.9 % (37-47)
[2021-08-13] MEDS: ACETAMINOPHEN 325 MG TAB PO PRN (17:15)
[2021-08-13 20:10] LABS: Hematocrit (blood only) 27.8 % (37-47); Hemoglobin 9.1 g/dL (12.0-16.0)
[2021-08-13] MEDS: SIMVASTATIN 20 MG TAB PO SCH (20:42)
[2021-08-13] MEDS: PANTOprazole 40 MG in SYRINGE 0 ML IV SCH (20:42)
[2021-08-13] MEDS: OLANZAPINE 2.5 MG TAB PO SCH (20:42)
--- NOTE | 2021-08-13 22:26 | Hospitalist Progress Note ---
Date of Service August 13, 2021 Assessment & Plan (1) UGIB (upper gastrointestinal bleed): Plan: Present on admission with episode of current hematemesis Hemoglobin on admission 10.8 and dropped to 9.1 Possible related to anticoagulation she patient was trying to Eliquis yesterday Compared to previous examination, there has been interval placement of a distal esophageal stent extending through a mass at the GE junction which extends into the gastric fundus. Fluid and debris are seen within the mass as described on concurrent CT of the chest from 08/12/2021.. Compared to the previous examination, there is increasing moderate to marked abdominal and pelvic ascites. Status post 1 unit PRBC given earlier Status post K Centra administered in the ER Gastro on board S/P EGD esophagitis and gastritis, stent removal Case discussed with gastro Dr. Villareal that recommended to hold anticoagulant for 24 hours Recommended to start on IV heparin drip when started on anticoagulant then if tolerated after 24 hours will transition to the eliquis Continue monitor H&H closely PE/DVT [place] Pulmonary Embolism Last admission Lovenox was transition to Eliquis Oncology recommended Eliquis [address] Rose was notified about patient was back due to GI bleed Anticoagulant on hold due to recent GI bleed Status post IVC filter placement by vascular Continue monitor closely Ascites Mostly due to the malignancy CT abd/pelvis showed increasing moderate to marked abdominal and pelvic ascites. Status post paracentesis where 3.5 L ascites fluid remove Bilateral pleural Effusion CT chest showed slight interval decrease in small bilateral pleural effusions with compressive atelectasis at both lung bases. Lasix on due to elevated creatinine Saturating well on room air Continue monitor closely Ovarian ca: Metastatic disease: Initial diagnosis in 2013 Current treatment plan is p.o. Votrient -however on hold due to recent fatigue Follows with Dr. Weinberg and Misti Zamorano PA-C Diabetes mellitus, type 2: -Hgb A1c 5.4 03/2021 -Hold oral agents, NovoLog per protocol while hospitalized (5) CKD (chronic kidney disease), stage III: ANNIE on CKD stage III -Baseline creatinine runs in the low 1's -Creatinine continues to worsening to 2.7 - Continue to hold Lasix, lisinopril and Metformin -Continue monitor BMP (6) DVT prophylaxis:on SCDs Anticoagulant on hold due to acute GI bleed (7) Mild right-sided hydronephrosis urology on board-no plan for any intervention since hydronephrosis seems to be chronic DNR Patient daughter requesting updates from providers. Ms. Wilmer Garrison, contact #[phone]. Admission and Anticipated Discharge Date Admission Date: August 12, 2021 Subjective Patient was seen and examined for follow-up of GI bleed Lying in bed with no acute distress Yesterday patient signed AMA because she did not want to spend another night in the hospital Then came back after she developed multiple episodes hematemesis She had thoracentesis done earlier where 3.5 L ascites fluid removed Currently denies any chest pain, patient, dizziness, shortness of breath. Review of Systems Review of Systems: All systems reviewed & are unremarkable except as noted in Subjective Physical Exam Physical Exam: General- No acute distress Head- atraumatic Eyes- PERRL, EOMI, ENT- oropharynx clear Neck- supple, no JVD Lungs- clear to auscultation Heart- regular rhythm; no murmur Abdomen- normal bowel sounds, soft, +mild tender with palpation Extremities- RLE edema Neuro- alert, oriented x 3; PERRL, EOMI; no facial palsy; no dysarthria Skin- warm & dry Results & Data Results & Data ([facility]) Vital Signs (Past 12 Hours) Vital Signs Temp Pulse Pulse Resp BP BP Pulse Ox 08/13/21 18:00 83 19 110/62 94 08/13/21 17:30 85 21 107/60 95 08/13/21 17:00 90 22 117/70 96 08/13/21 16:30 87 15 120/72 95 08/13/21 16:00 86 18 115/71 95 08/13/21 15:30 85 24 127/75 97 08/13/21 15:00 88 19 116/69 93 08/13/21 14:30 82 18 114/71 92 08/13/21 14:00 36.9 C 83 18 120/70 96 08/13/21 13:25 36.5 C 85 20 110/65 92 08/13/21 13:15 82 19 128/72 93 08/13/21 13:05 87 19 112/70 93 08/13/21 12:55 89 20 116/71 96 08/13/21 12:48 36.5 C 87 21 123/72 96 08/13/21 12:10 36.6 C 87 20 119/71 93 08/13/21 11:00 36.9 C 86 88 20 119/71 119/71 92 08/13/21 10:50 89 17 95 08/13/21 10:40 86 21 92 08/13/21 10:30 85 22 108/66 93
--- NOTE | 2021-08-13 22:31 | Electrocardiogram Report ---
Test Reason : Blood Pressure : / mmHG Vent. Rate : 111 BPM Atrial Rate : 111 BPM P-R Int : 146 ms QRS Dur : 082 ms QT Int : 350 ms P-R-T Axes : 006 063 068 degrees QTc Int : 476 ms Sinus tachycardia Low voltage QRS Nonspecific T wave abnormality Abnormal ECG When compared with ECG of 03-AUG-2021 14:17, Nonspecific T wave abnormality, worse in Inferior leads Confirmed by Jorden Armstrong ([id number]) on 08/13/2021 10:30:50 PM Referred By: REFERRED SELF Confirmed By:Jorden Armstrong
--- NOTE | 2021-08-13 22:36 | Urology Consultation ---
Date of Consultation August 13, 2021 Assessment & Plan (1) Elevated serum creatinine: Patient has been admitted under the hospitalist service: It appears as though the hydronephrosis on patient's CT scan is chronic and unchanged Her elevated creatinine may be due to underlying prerenal state potentially from dehydration or third spacing of fluid Recommend following serial labs As the patient is asymptomatic in this regard no acute/emergent urologic intervention is required Supervising Physician Co-Signing Physician Notes Discussed patient with ARIN. Agree with plan. Rounded on patient personally. Asymptomatic from a hydronephrosis standpoint. No concern for urinary tract infection. ANNIE but creatinine is improving. In the setting of hydronephrosis due to suspected metastatic obstruction, only ind ication to intervene would be due to intractable pain or concern for infection. Patient has neither. Committing her to a stent at this time would likely be for the remainder of her life and cause significant quality of life issues. No indication for urologic intervention. Urology will sign off. Please call with questions or concerns. Kidney function can be followed by her primary care provider or oncologist. Hydronephrosis can be followed with regular scans for cancer surveillance. If any further concerns in the future from a urologic perspective, please reach out to my office and I would be happy to see her. History of Present Illness Reason for Consultation: Obstructive uropathy Attending Physician: David Ansari MD History of Present Illness This is a 65-year-old female with a history of metastatic ovarian cancer. The patient also has a history of pulmonary emboli for which she takes Eliquis. She was admitted to the hospital this admission secondary concern for GI bleed. She therefore had her Eliquis stopped. She did undergo an EGD earlier this admission which revealed the patient had a esophageal stent which had migrated and was ultimately removed. Due to concern for GI bleed she had an IVC filter placed. Urology has been consulted due to concern for obstructive uropathy. I did question the patient out symptoms related to this and she denies any back or flank pain. She has a Chan catheter in at the present time but notes that previously when she was at home she did not have any dysuria, hematuria, or urinary frequency. She also denies any fevers, shakes, chills. Relevant imaging and labs from this admission were reviewed. The patient did have a CT scan of the abdomen and pelvis. On this scan the patient was noted to have mild right-sided hydronephrosis but this appeared unchanged when compared to prior scans. No left-sided hydronephrosis was noted. No renal stones were noted. Patient was noted to have a renal cyst that was present on previous scans. Labs include a CBC her white blood cell count was 7.3. Hemoglobin and hematocrit were 9.1 and 27.8 respectively. The patient's platelet count was within normal range. Chemistry profile showed sodium and potassium were both within normal range. Her BUN and creatinine were elevated at 56 and 2.7. It does appear that the patient's underlying baseline creatinine is 1.3-1.4. Urinalysis performed today showed trace leukocyte Estrace. This was negative for nitrites. Only 1-5 white blood cells per high-power field were noted and it was negative for bacteria. At the time my interview the patient is resting comfortably in bed she was no distress or pain. Allergies Allergy/AdvReac Type Severity Reaction Status Date / Time No Known Allergies Allergy Verified 08/12/21 22:17 Home Medications Medication Instructions Recorded Confirmed Type lisinopril 10 mg tablet 10 mg PO QAM 08/27/18 08/12/21 History lorazepam 0.5 mg tablet 0.5 mg PO TID PRN 08/27/18 08/12/21 History metformin 500 mg tablet 1,000 mg PO BID 08/27/18 08/12/21 History multivitamin 1 tab PO QAM 08/27/18 08/12/21 History simvastatin 20 mg tablet 20 mg PO PM 08/27/18 08/12/21 History zolpidem 10 mg tablet 1 tab PO HS 08/27/18 08/12/21 History prochlorperazine maleate 5 mg 5 mg PO TID PRN 06/18/21 08/12/21 History tablet (Compazine) olanzapine 2.5 mg tablet 2.5 mg PO HS 08/03/21 08/12/21 History oxycodone 5 mg tablet 5 mg PO Q4 PRN 08/03/21 08/12/21 History apixaban 5 mg tablet (Eliquis) 5 mg PO UD #74 tab 08/12/21 08/12/21 Rx ondansetron HCl 8 mg tablet 8 mg PO UD PRN 08/12/21 08/12/21 History pantoprazole 40 mg tablet,delayed 40 mg PO BID #60 tab 08/12/21 08/12/21 Rx release Patient History Medical History Acute saddle pulmonary embolism 08/03/21 Anemia Anxiety CKD (chronic kidney disease), stage III Degenerative disc disease Diabetes mellitus, type 2 History of anesthesia reaction difficulty waking after cataract surgery Hyperlipidemia Hypertension Metastatic disease ovarian cancer with 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 Treated with systemic chemotherapy. Continued surveillance and finding of lymphadenopathy/nodule of the pelvis February 23, 2018 Status post fine-needle aspiration April 18, 2018 revealing metastatic adenocarcinoma consistent with ovarian origin. Status post completion of stereotactic body radiation therapy June 04, 2018. 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 Treated with systemic chemotherapy. Continued surveillance and finding of lymphadenopathy/nodule of the pelvis February 23, 2018 Status post fine-needle aspiration April 18, 2018 revealing metastatic adenocarcinoma consistent with ovarian origin." Surgical History History of bilateral cataract extraction History of cholecystectomy History of esophagogastroduodenoscopy (EGD) History of tonsillectomy and adenoidectomy History of tooth extraction wisdom teeth History of total abdominal hysterectomy and bilateral salpingo-oophorectomy 2013 Hx of inguinal hernia repair unsure which side Family History Grandmother Family history of diabetes mellitus maternal Social History Smoking Status: Former smoker Tobacco Type: Cigarettes Smoking End Date: 20 years ago; Second Hand Exposure: Yes (parents smoked); Hx Alcohol Use: No Hx Substance Use: No Preferred Language: Azeri Communication Ability: Effective Help Desk Administrator Required: No Beliefs That Will Affect Care: None marital status: Current Living Situation: Alone Other Information That Helps Us Care for You: No Feels Safe at Home: Yes Safety Concerns: Feels Safe At This Time Assistive Devices: None Review of Systems Constitutional: no fever and no chills Eyes: no diplopia Ear, Nose, Mouth, Throat: no ear pain Respiratory: no cough and no dyspnea Cardiovascular: no chest pain Gastrointestinal: no abdominal pain Genitourinary: no dysuria, no difficulty urinating and no urinary frequency Musculoskeletal: no back pain Integumentary: no rash Neurologic: no localized weakness Physical Exam Constitutional: well developed and well nourished; no acute distress Eyes: no conjunctival abnormality ENMT: Ears: no hearing impairment Mouth: no oropharynx abnormality Neck: trachea midline Respiratory: normal respiratory effort; no respiratory distress and no labored breathing Cardiovascular: Rate/Rhythm: regular rate and regular rhythm Gastrointestinal (Abdomen): Abdomen is soft and nondistended. There is no pawel n with palpation Musculoskeletal: No calf tenderness Skin: no rashes Neurologic: moves all extremities Psychiatric: A+Ox3, euthymic affect Genitourinary: no CVA tenderness Results & Data ([facility]) Vital Signs (Past 12 Hours) Vital Signs Temp Pulse Pulse Resp BP BP Pulse Ox 08/13/21 18:00 83 19 110/62 94 08/13/21 17:30 85 21 107/60 95 08/13/21 17:00 90 22 117/70 96 08/13/21 16:30 87 15 120/72 95 08/13/21 16:00 86 18 115/71 95 08/13/21 15:30 85 24 127/75 97 08/13/21 15:00 88 19 116/69 93 08/13/21 14:30 82 18 114/71 92 08/13/21 14:00 36.9 C 83 18 120/70 96 11/05/21 13:25 36.5 C 85 20 110/65 92 08/13/21 13:15 82 19 128/72 93 08/13/21 13:05 87 19 112/70 93 08/13/21 12:55 89 20 116/71 96 08/13/21 12:48 36.5 C 87 21 123/72 96 08/13/21 12:10 36.6 C 87 20 119/71 93 08/13/21 11:00 36.9 C 86 88 20 119/71 119/71 92 08/13/21 10:50 89 17 95 08/13/21 10:40 86 21 92 PG Care Time/CCT Total # of Minutes Spent Total Time Spent with Patient: Total time spent is greater than 50% in coordination of care (as documented) at patient's floor/unit and/or counseling patient: Coding Level of Care Code 52298 Inpt Consult Level 5 Diagnoses Elevated serum creatinine R79.89
[2021-08-14] MEDS: ALBUMIN 25% 12.5 GM/50 ML VIAL IV SCH ×5 (00:20→22:45)
[2021-08-14] MEDS: ACETAMINOPHEN 325 MG TAB PO PRN (02:44)
[2021-08-14] MEDS: ONDANSETRON INJ 2 MG/ML 2 ML VIAL IV PRN ×2 (06:09→19:48)
[2021-08-14 08:00] LABS: Hematocrit (blood only) 29.5 % (37-47); Hemoglobin 9.4 g/dL (12.0-16.0); Mean Corpuscular Hemoglobin 33.7 pg (25-34); Mean Corpuscular Hgb Conc 31.9 g/dL (32-36); Mean Corpuscular Volume 105.7 fL (80-100); Mean Platelet Volume 9.3 fL (7.4-10.4); Platelet Count 123 K/uL (130-400); RDW Coefficient of Variation 23.5 % (11.5-14.5); RDW Standard Deviation 87.8 fL (36.4-46.3); Red Blood Count 2.79 M/uL (4.2-5.4); White Blood Count 4.77 K/uL (4.8-10.8)
[2021-08-14 08:29] LABS: BUN Creatinine Ratio 21.6 (10-20); Calcium 8.6 mg/dl (8.5-10.1); Est GFR (African American) 23.2 ml/min; Potassium 3.7 mmol/L (3.5-5.1)
[2021-08-14] MEDS: PANTOprazole 40 MG in SYRINGE 0 ML IV SCH ×2 (08:38→19:48)
[2021-08-14] MEDS: INSULIN ASPART 100 UNITS/ML 3 ML PEN SC SCH ×4 (08:38→20:40)
[2021-08-14] MEDS: MULTIVITAMIN TAB PO SCH (08:38)
[2021-08-14] MEDS: oxyCODONE HCL IR 5 MG TAB (IMMEDIATE RELEASE) PO PRN (09:00)
--- NOTE | 2021-08-14 10:57 | Gastroenterology Progress Note ---
Date of Service August 14, 2021 Assessment & Plan Admission and Anticipated Discharge Date Admission Date: August 12, 2021 Subjective Patient was seen and examined today, doing well, tolerated clear liquid diet. No further hematemesis. H/H stable. Recommend: Continue PPI. Continue clears today then full liquid diet tomorrow. May start IV Heparin drip today without a bolus and closely monitor for rebleeding. Recall GI if needed. Results & Data ([facility]) Vital Signs (Past 12 Hours) Vital Signs Temp Pulse Pulse Resp BP BP Pulse Ox 08/14/21 08:08 36.8 C 86 18 106/66 97 08/14/21 03:36 36.6 C 79 18 119/66 93 08/14/21 00:50 73 08/14/21 00:21 36.7 C 79 18 114/72 96
--- NOTE | 2021-08-14 12:06 | Nephrology Consultation ---
Date of Consultation August 14, 2021 Assessment & Plan (1) Acute kidney injury superimposed on CKD: Patient with acute kidney injury likely due to contrast-induced nephropathy several days ago after her CT PE. Creatinine has been uptrending since then. I suspect renal function will start to improve. Creatinine slightly better today at 2.4. Electrolytes are stable. No need for IV fluids as she is high risk for CHF. -Avoid further contrast (2) Anemia: Patient with a GI bleed. Hemoglobin of 9.4 today. She is off Eliquis and status post IVC filter. No need for STEF History of Present Illness Reason for Consultation: Acute kidney injury Requesting Physician: David Ansari MD Attending Physician: David Ansari MD History of Present Illness This is a 5-year-old female with history of metastatic ovarian cancer to the spleen and liver, type 2 diabetes and PE who was readmitted with vomiting found to have acute kidney injury with creatinine of 2.7. patient was recently hospitalized on 08/04/2021 with PE. Her baseline creatinine was 1.2 in March [address] with contrast her creatinine has been rising and most recently 2.7 yesterday. she was started on Eliquis. She was discharged few days ago and to be readmitted. She was now found to have GI bleed. She is off Eliquis now. She had IVC filter placed yesterday. She has a Chan catheter and making urine. CT abdomen showed right-sided hydronephrosis but it appears chronic. She denies any shortness of breath. Legs are mildly swollen. No abdominal pain. Allergies Allergy/AdvReac Type Severity Reaction Status Date / Time No Known Allergies Allergy Verified 08/12/21 22:17 Home Medications Medication Instructions Recorded Confirmed Type lisinopril 10 mg tablet 10 mg PO QAM 08/27/18 08/12/21 History lorazepam 0.5 mg tablet 0.5 mg PO TID PRN 08/27/18 08/12/21 History metformin 500 mg tablet 1,000 mg PO BID 08/27/18 08/12/21 History multivitamin 1 tab PO QAM 08/27/18 08/12/21 History simvastatin 20 mg tablet 20 mg PO PM 08/27/18 08/12/21 History zolpidem 10 mg tablet 1 tab PO HS 08/27/18 08/12/21 History prochlorperazine maleate 5 mg 5 mg PO TID PRN 06/18/21 08/12/21 History tablet (Compazine) olanzapine 2.5 mg tablet 2.5 mg PO HS 08/03/21 08/12/21 History oxycodone 5 mg tablet 5 mg PO Q4 PRN 08/03/21 08/12/21 History apixaban 5 mg tablet (Eliquis) 5 mg PO UD #74 tab 08/12/21 08/12/21 Rx ondansetron HCl 8 mg tablet 8 mg PO UD PRN 08/12/21 08/12/21 History pantoprazole 40 mg tablet,delayed 40 mg PO BID #60 tab 08/12/21 08/12/21 Rx release Patient History Medical History Acute saddle pulmonary embolism 08/03/21 Anemia Anxiety CKD (chronic kidney disease), stage III Degenerative disc disease Diabetes mellitus, type 2 History of anesthesia reaction difficulty waking after cataract surgery Hyperlipidemia Hypertension Metastatic disease ovarian cancer with 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 Treated with systemic chemotherapy. Continued surveillance and finding of lymphadenopathy/nodule of the pelvis February 23, 2018 Status post fine-needle aspiration April 18, 2018 revealing metastatic adenocarcinoma consistent with ovarian origin. Status post completion of stereotactic body radiation therapy June 04, 2018. 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 Treated with systemic chemotherapy. Continued surveillance and finding of lymphadenopathy/nodule of the pelvis February 23, 2018 Status post fine-needle aspiration April 18, 2018 revealing metastatic adenocarcinoma consistent with ovarian origin." Surgical History History of bilateral cataract extraction History of cholecystectomy History of esophagogastroduodenoscopy (EGD) History of tonsillectomy and adenoidectomy History of tooth extraction wisdom teeth History of total abdominal hysterectomy and bilateral salpingo-oophorectomy 2014 Hx of inguinal hernia repair unsure which side Family History Grandmother Family history of diabetes mellitus maternal Social History Smoking Status: Former smoker Tobacco Type: Cigarettes Smoking End Date: 20 years ago; Second Hand Exposure: Yes (parents smoked); Hx Alcohol Use: No Hx Substance Use: No Preferred Language: Panamanian Communication Ability: Effective Fern Cutter Required: No Beliefs That Will Affect Care: None marital status: Current Living Situation: Alone Other Information That Helps Us Care for You: No Feels Safe at Home: Yes Safety Concerns: Feels Safe At This Time Assistive Devices: None Review of Systems Review of Systems: All other systems were reviewed and negative except as noted in HPI Physical Exam Physical Exam: General exam: Appears comfortable, no acute distress HEENT: Pupils are equal and reactive to light Neck: No JVD, neck is supple trachea is midline Respiratory system: Clear breath sounds bilaterally. Gastrointestinal: Abdomen is soft, non distended, non tender, bowel sounds are present CVS: Regular rate and rhythm. No murmurs, rubs or gallops Musculoskeletal: No joint or muscle tenderness Extremities: Non tender, 1+ edema, peripheral pulses are present Neuro: Oriented, no tremors, no focal neurological deficits Skin: No rashes Results & Data ([facility]) Vital Signs (Past 12 Hours) Vital Signs Temp Pulse Pulse Resp BP BP Pulse Ox 08/14/21 11:53 36.4 C L 90 19 97/65 L 94 08/14/21 08:08 36.8 C 86 18 106/66 97 08/14/21 08:00 81 08/14/21 03:36 36.6 C 79 18 119/66 93 08/14/21 00:50 73 08/14/21 00:21 36.7 C 79 18 114/72 96 Laboratory Results 08/14/21 07:34 08/14/21 07:34 WBC 4.77 L RBC 2.79 L MCV 105.7 H MCH 33.7 MCHC 31.9 L RDW Std Deviation 87.8 H RDW Coeff of Cely 23.5 H Plt Count 123 L MPV 9.3
[2021-08-14] MEDS ORDERED: Heparin IV Adult Wt-Based Standard *NO* Bolus Protocol IV SCH (13:10)
[2021-08-14 14:29] LABS: INR 1.1 (0.9-1.1); Partial Thromboplastin Ratio 1.2; Partial Thromboplastin Time 32.2 Seconds (21.0-31.0); Prothrombin Time 11.1 Seconds (9.0-12.0)
[2021-08-14] MEDS: HEPARIN SODIUM/DEXTROSE 25,000 UNITS/500 ML BAG IV SCH (14:56)
[2021-08-14] MEDS: SIMVASTATIN 20 MG TAB PO SCH (19:48)
[2021-08-14] MEDS: OLANZAPINE 2.5 MG TAB PO SCH (19:48)
--- NOTE | 2021-08-14 23:01 | Hospitalist Progress Note ---
Date of Service August 14, 2021 Assessment & Plan (1) UGIB (upper gastrointestinal bleed): Plan: Present on admission with episode of current hematemesis Hemoglobin on admission 10.8 and dropped to 9.1 Possible related to anticoagulation she patient was trying to Eliquis yesterday Compared to previous examination, there has been interval placement of a distal esophageal stent extending through a mass at the GE junction which extends into the gastric fundus. Fluid and debris are seen within the mass as described on concurrent CT of the chest from 08/12/2021.. Compared to the previous examination, there is increasing moderate to marked abdominal and pelvic ascites. Status post 1 unit PRBC given earlier Status post K Centra administered in the ER Hemoglobin 9.4 today Gastro on board S/P EGD esophagitis and gastritis, stent removal Case discussed with gastro Dr. Villareal that recommended to hold anticoagulant for 24 hours from EGD Okay with GI to start on IV heparin drip today with no bolus Continue clear liquid diet for today then advance to full liquid diet tomorrow Continue monitor H&H closely PE/DVT Saddle Pulmonary Embolism Last admission Lovenox was transition to Eliquis Oncology recommended Eliquis [address] Rose was notified about patient was back due to GI bleed Anticoagulant on hold due to recent GI bleed Status post IVC filter placement by vascular Continue monitor closely Ascites Mostly due to the malignancy CT abd/pelvis showed increasing moderate to marked abdominal and pelvic ascites. Status post paracentesis where 3.5 L ascites fluid removed Bilateral pleural Effusion CT chest showed slight interval decrease in small bilateral pleural effusions with compressive atelectasis at both lung bases. Lasix on due to elevated creatinine Saturating well on room air Continue monitor closely Ovarian ca: Metastatic disease: Initial diagnosis in 2013 Current treatment plan is p.o. Votrient -however on hold due to recent fatigue Follows with Dr. Weinberg and Misti Zamorano PA-C Diabetes mellitus, type 2: -Hgb A1c 5.4 03/2021 -Hold oral agents, NovoLog per protocol while hospitalized (5) CKD (chronic kidney disease), stage III: ANNIE on CKD stage III -Baseline creatinine runs in the low 1's -Creatinine slightly improved to 2.4 - Continue to hold Lasix, lisinopril and Metformin -Continue monitor BMP (6) DVT prophylaxis:on SCDs Anticoagulant on hold due to acute GI bleed (7) Mild right-sided hydronephrosis urology on board-no plan for any intervention since hydronephrosis seems to be chronic DNR Patient daughter requesting updates from providers. Ms. Wilmer Garrison, contact #[phone]. Admission and Anticipated Discharge Date Admission Date: August 12, 2021 Subjective Patient was seen and examined for follow-up of hematemesis Lying in bed no acute distress Patient said that she feels fine today she said she has not had any dark stools or vomiting She would like her diet to be advanced to something better Denies any chest pain, palpitation, dizziness, shortness of breath. Review of Systems Review of Systems: All systems reviewed & are unremarkable except as noted in Subjective Physical Exam Physical Exam: General- No acute distress Head- at raumatic Eyes- PER RL, EOMI, ENT- valdemar pharynx clear Neck - supple, no JVD L ungs- clear to aus cultation Heart- r egular rhythm; no murmur Abdomen- no rmal bowel sounds, soft, +mild tende r with palpation E xtremities- RLE e nita Neuro- alert, oriented x 3; PER RL, EOMI; no facia l palsy; no dysart hria Skin- warm & dry Results & Data Results & Data ([facility]) Vital Signs (Past 12 Hours) Vital Signs Temp Pulse Pulse Resp BP Pulse Ox 08/14/21 19:37 36.8 C 93 H 20 117/77 94 08/14/21 16:12 36.3 C L 92 H 16 109/73 93 08/14/21 16:00 95 H 08/14/21 11:53 36.4 C L 90 19 97/65 L 94
[2021-08-14 23:47] LABS: Partial Thromboplastin Ratio 4.6
[2021-08-15 00:05] LABS: Partial Thromboplastin Time 122.1 Seconds (21.0-31.0)
[2021-08-15] MEDS: oxyCODONE HCL IR 5 MG TAB (IMMEDIATE RELEASE) PO PRN (02:07)
[2021-08-15] MEDS: ALBUMIN 25% 12.5 GM/50 ML VIAL IV SCH ×5 (04:56→23:56)
[2021-08-15] MEDS: ONDANSETRON INJ 2 MG/ML 2 ML VIAL IV PRN (05:15)
[2021-08-15 07:42] LABS: Hematocrit (blood only) 32.9 % (37-47); Hemoglobin 10.5 g/dL (12.0-16.0); Mean Corpuscular Hgb Conc 31.9 g/dL (32-36); Mean Corpuscular Volume 106.5 fL (80-100); Mean Platelet Volume 10.1 fL (7.4-10.4); Platelet Count 122 K/uL (130-400); RDW Coefficient of Variation 23.1 % (11.5-14.5); RDW Standard Deviation 88.8 fL (36.4-46.3); Red Blood Count 3.09 M/uL (4.2-5.4); White Blood Count 4.76 K/uL (4.8-10.8)
[2021-08-15] MEDS: MULTIVITAMIN TAB PO SCH (07:54)
[2021-08-15] MEDS: PANTOprazole 40 MG in SYRINGE 0 ML IV SCH ×2 (07:54→20:32)
[2021-08-15] MEDS: INSULIN ASPART 100 UNITS/ML 3 ML PEN SC SCH ×4 (07:57→20:23)
[2021-08-15 08:01] LABS: Partial Thromboplastin Ratio 2.9
[2021-08-15 08:10] LABS: Partial Thromboplastin Time 76.6 Seconds (21.0-31.0)
[2021-08-15 08:15] LABS: BUN Creatinine Ratio 23.2 (10-20); Calcium 8.8 mg/dl (8.5-10.1); Creatinine Clr Calc Pharmacy 27.7 ml/min; Est GFR (African American) 27.5 ml/min; Est GFR (Non-African American) 23.8 ml/min; Potassium 3.4 mmol/L (3.5-5.1)
--- NOTE | 2021-08-15 10:12 | Nephrology Progress Note ---
Date of Service August 15, 2021 Assessment & Plan (1) Acute kidney injury superimposed on CKD: Plan: Patient with acute kidney injury likely due to contrast-induced nephropathy several days ago after her CT PE. Creatinine worsened then but now improving. I suspect renal function will continue to improve. Creatinine slightly better today at 2.1. Electrolytes are stable. No need for IV fluids as she is high risk for CHF. -Avoid further contrast -She will likely need Lasix in a day or 2 (2) Anemia: Plan: Patient with a GI bleed. Hemoglobin of 10.5 today. She is off Eliquis and status post IVC filter. No need for STEF. She is on heparin drip. Admission and Anticipated Discharge Date Admission Date: August 12, 2021 Subjective Seen in follow-up for acute kidney injury. She feels better today. She is making urine. No shortness of breath. Review of Systems Review of Systems: All other systems were reviewed and negative except as noted in HPI Physical Exam Physical Exam: General exam: Appears comfortable, no acute distress HEENT: Pupils are equal and reactive to light Neck: No JVD, neck is supple trachea is midline Respiratory system: Clear breath sounds bilaterally. Gastrointestinal: Abdomen is soft, non distended, non tender, bowel sounds are present CVS: Regular rate and rhythm. No murmurs, rubs or gallops Musculoskeletal: No joint or muscle tenderness Extremities: Non tender, 1+ edema, peripheral pulses are present Neuro: Oriented, no tremors, no focal neurological deficits Skin: No rashes Results & Data ([facility]) Vital Signs (Past 12 Hours) Vital Signs Temp Pulse Pulse Pulse Resp BP BP 08/15/21 07:01 36.5 C 91 H 18 139/89 08/15/21 06:19 92 H 08/15/21 04:06 36.2 C L 92 H 20 119/79 08/15/21 00:01 36.3 C L 92 H 20 109/73 08/15/21 00:00 91 H Pulse Ox 08/15/21 07:01 92 08/15/21 06:19 08/15/21 04:06 95 08/15/21 00:01 93 08/15/21 00:00 Laboratory Results 08/15/21 07:10 08/15/21 07:10 WBC 4.76 L RBC 3.09 L MCV 106.5 H MCH 34.0 MCHC 31.9 L RDW Std Deviation 88.8 H RDW Coeff of Cely 23.1 H Plt Count 122 L MPV 10.1
[2021-08-15] MEDS ORDERED: POTASSIUM CHLORIDE CRTAB 20 MEQ TABCR PO STA (11:43)
[2021-08-15 14:49] LABS: Partial Thromboplastin Ratio 3.5
[2021-08-15 15:02] LABS: Partial Thromboplastin Time 90.8 Seconds (21.0-31.0)
[2021-08-15] MEDS: HEPARIN SODIUM/DEXTROSE 25,000 UNITS/500 ML BAG IV SCH (16:03)
--- NOTE | 2021-08-15 17:32 | Hospitalist Progress Note ---
Date of Service August 15, 2021 Assessment & Plan (1) UGIB (upper gastrointestinal bleed): Plan: Present on admission with episode of current hematemesis Hemoglobin on admission 10.8 and dropped to 9.1 Possible related to anticoagulation she patient was trying to Eliquis yesterday Compared to previous examination, there has been interval placement of a distal esophageal stent extending through a mass at the GE junction which extends into the gastric fundus. Fluid and debris are seen within the mass as described on concurrent CT of the chest from 08/12/2021.. Compared to the previous examination, there is increasing moderate to marked abdominal and pelvic ascites. Status post 1 unit PRBC given earlier Status post K Centra administered in the ER Hemoglobin 10.5 today Gastro on board S/P EGD esophagitis and gastritis, stent removal Case discussed with gastro Dr. Villareal that recommended to hold anticoagulant for 24 hours from EGD Okay with GI to start on IV heparin drip with no bolus yesterday as per GI Tolerate clear liquid diet, then advance to full liquid today Continue monitor H&H closely PE/DVT S[facility] Pulmonary Embolism Last admission Lovenox was transition to Eliquis Oncology recommended Eliquis [address] Rose was notified about patient was back due to GI bleed Anticoagulant was on hold due to recent GI bleed Status post IVC filter placement by vascular She has been on IV heparin drip for about 24 hours, will transition to Eliquis tonight Continue monitor closely Ascites Mostly due to the malignancy CT abd/pelvis showed increasing moderate to marked abdominal and pelvic ascites. Status post paracentesis where 3.5 L ascites fluid removed Bilateral pleural Effusion CT chest showed slight interval decrease in small bilateral pleural effusions with compressive atelectasis at both lung bases. Lasix on due to elevated creatinine Saturating well on room air Continue monitor closely Ovarian ca: Metastatic disease: Initial diagnosis in 2013 Current treatment plan is p.o. Votrient -however on hold due to recent fatigue Follows with Dr. Weinberg and Misti Zamorano PA-C Diabetes mellitus, type 2: -Hgb A1c 5.4 03/2021 -Hold oral agents, NovoLog per protocol while hospitalized (5) CKD (chronic kidney disease), stage III: ANNIE on CKD stage III -Baseline creatinine runs in the low 1's -Creatinine slightly improved to 2.1 - Continue to hold Lasix, lisinopril and Metformin -Continue monitor BMP (6) DVT prophylaxis:on SCDs Anticoagulant on hold due to acute GI bleed (7) Mild right-sided hydronephrosis urology on board-no plan for any intervention since hydronephrosis seems to be chronic DNR Patient daughter requesting updates from providers. Ms. Wilmer Garrison, contact #[phone]. Admission and Anticipated Discharge Date Admission Date: August 12, 2021 Subjective Patient was seen and examined for follow-up of GI bleed Sitting in chair with no acute distress Patient said that she feels fine today She was able to tolerate clear diet she said she has not had any dark stools or vomiting Denies any chest pain, palpitation, dizziness, shortness of breath. Review of Systems Review of Systems: All systems reviewed & are unremarkable except as noted in Subjective Physical Exam Physical Exam: General- No acute distress Head- at raumatic Eyes- PER RL, EOMI, ENT- valdemar pharynx clear Neck - supple, no JVD L ungs- clear to aus cultation Heart- r egular rhythm; no murmur Abdomen- no rmal bowel sounds, soft, +mild tende r with palpation E xtremities- RLE e nita Neuro- alert, oriented x 3; PER RL, EOMI; no facia l palsy; no dysart hria Skin- warm & dry Results & Data Results & Data ([facility]) Vital Signs (Past 12 Hours) Vital Signs Temp Pulse Pulse Resp BP BP Pulse Ox 08/15/21 16:19 36.3 C L 106 H 18 126/76 96 08/15/21 14:19 108 H 08/15/21 12:37 36.5 C 103 H 18 115/66 98 08/15/21 07:01 36.5 C 91 H 18 139/89 92 08/15/21 06:19 92 H
[2021-08-15] MEDS ORDERED: HEPARIN STOP ORDER ONE (20:30)
[2021-08-15] MEDS: OLANZAPINE 2.5 MG TAB PO SCH (20:32)
[2021-08-15] MEDS: SIMVASTATIN 20 MG TAB PO SCH (20:32)
[2021-08-15] MEDS: APIXABAN 5 MG TABLET PO SCH (21:41)
[2021-08-15] MEDS: ZOLPIDEM TARTRATE 10 MG TAB PO PRN (21:41)
[2021-08-15 22:08] LABS: Partial Thromboplastin Ratio 1.7; Partial Thromboplastin Time 44.1 Seconds (21.0-31.0)
[2021-08-16] MEDS: ALBUMIN 25% 12.5 GM/50 ML VIAL IV SCH (05:29)
[2021-08-16 07:18] LABS: Estimated Average Glucose 105 mg/dl; Hemoglobin A1C 5.3 % (4.5-5.6)
[2021-08-16] MEDS: PANTOprazole 40 MG in SYRINGE 0 ML IV SCH ×2 (08:29→21:05)
[2021-08-16] MEDS: INSULIN ASPART 100 UNITS/ML 3 ML PEN SC SCH ×4 (08:29→21:08)
[2021-08-16] MEDS: MULTIVITAMIN TAB PO SCH (08:29)
[2021-08-16] MEDS: APIXABAN 5 MG TABLET PO SCH ×2 (08:29→21:05)
[2021-08-16 09:38] LABS: Hematocrit (blood only) 32.8 % (37-47); Hemoglobin 10.5 g/dL (12.0-16.0); Mean Corpuscular Hemoglobin 33.9 pg (25-34); Mean Corpuscular Volume 105.8 fL (80-100); Mean Platelet Volume 9.9 fL (7.4-10.4); Platelet Count 125 K/uL (130-400); RDW Coefficient of Variation 22.2 % (11.5-14.5); White Blood Count 5.18 K/uL (4.8-10.8)
[2021-08-16 10:11] LABS: BUN Creatinine Ratio 23.1 (10-20); Calcium 8.6 mg/dl (8.5-10.1); Creatinine Clr Calc Pharmacy 30.8 ml/min; Est GFR (African American) 31.3 ml/min; Potassium 4.3 mmol/L (3.5-5.1)
[2021-08-16] MEDS: ONDANSETRON INJ 2 MG/ML 2 ML VIAL IV PRN (12:08)
--- NOTE | 2021-08-16 13:51 | XRay Report ---
XR chest 1V portable CLINICAL HISTORY: sob TECHNIQUE: Single frontal radiograph of the chest was obtained. Comparison: Comparison is made to chest one view 08/08/2021 FINDINGS: Port catheter is unchanged in position. Exam is limited by patient rotation. The cardiomediastinal si lhouette is normal. There is a left retrocardiac opacity and faint right lower lung airspace opacity. Small bilateral pleural effusions. IMPRESSION: Bilateral small pleural effusions and airspace opacities, similar in extent to prior exam. ACT 112: Negative or not required by law. Electronically signed by: Roberto Carlos Sutherland M.D. 08/16/2021 1:50 PM
[2021-08-16] MEDS: ALBUT/IPRATROP 3MG/0.5MG NEB 3 ML VIAL NEB PRN (16:47)
[2021-08-16] MEDS: oxyCODONE HCL IR 5 MG TAB (IMMEDIATE RELEASE) PO PRN (19:31)
[2021-08-16] MEDS: SIMVASTATIN 20 MG TAB PO SCH (21:05)
[2021-08-16] MEDS: OLANZAPINE 2.5 MG TAB PO SCH (21:05)
[2021-08-16] MEDS: ZOLPIDEM TARTRATE 10 MG TAB PO PRN (21:47)
--- NOTE | 2021-08-16 23:39 | Hospitalist Progress Note ---
Date of Service August 16, 2021 Assessment & Plan (1) UGIB (upper gastrointestinal bleed): Plan: Present on admission with episode of current hematemesis Hemoglobin on admission 10.8 and dropped to 9.1 Possible related to anticoagulation she patient was trying to Eliquis yesterday Compared to previous examination, there has been interval placement of a distal esophageal stent extending through a mass at the GE junction which extends into the gastric fundus. Fluid and debris are seen within the mass as described on concurrent CT of the chest from 08/12/2021.. Compared to the previous examination, there is increasing moderate to marked abdominal and pelvic ascites. Status post 1 unit PRBC given earlier Status post K Centra administered in the ER Hemoglobin 10.5 today Gastro on board S/P EGD esophagitis and gastritis, stent removal Case discussed with gastro Dr. Villareal that recommended to hold anticoagulant for 24 hours from EGD Okay with GI to start on IV heparin drip with no bolus yesterday as per GI Tolerate clear liquid diet, then advance to full liquid, but developed nausea today Continue monitor H&H closely PE/DVT S[facility] Pulmonary Embolism Last admission Lovenox was transition to Eliquis Oncology recommended Eliquis [address] Rose was notified about patient was back due to GI bleed Anticoagulant was on hold due to recent GI bleed Status post IVC filter placement by vascular She was on IV heparin drip for about 24 hours, then transition to Eliquis Continue monitor closely Ascites Mostly due to the malignancy CT abd/pelvis showed increasing moderate to marked abdominal and pelvic ascites. Status post paracentesis where 3.5 L ascites fluid removed Bilateral pleural Effusion CT chest showed slight interval decrease in small bilateral pleural effusions with compressive atelectasis at both lung bases. Lasix on due to elevated creatinine Saturating well on room air Continue monitor closely Ovarian ca: Metastatic disease: Initial diagnosis in 2013 Current treatment plan is p.o. Votrient -however on hold due to recent fatigue Follows with Dr. Weinberg and Misti Zamorano PA-C Diabetes mellitus, type 2: -Hgb A1c 5.4 03/2021 -Hold oral agents, NovoLog per protocol while hospitalized Shortness of breath Patient said that she felt congested CXR showed bilateral small pleural effusions and airspace opacities, similar in extent to prior exam. (5) CKD (chronic kidney disease), stage III: ANNIE on CKD stage III -Baseline creatinine runs in the low 1's -Creatinine slightly improved to 1.9 - Continue to hold Lasix, lisinopril and Metformin -Continue monitor BMP -Discussed with nephrology recommend to check BMP weekly x3 on discharge -Okay from nephrology standpoint to discharge home -We will need follow-up to nephrology in 2 to 4 weeks (6) DVT prophylaxis:on SCDs Anticoagulant on hold due to acute GI bleed (7) Mild right-sided hydronephrosis urology on board-no plan for any intervention since hydronephrosis seems to be chronic DNR Patient daughter requesting updates from providers. Ms. Wilmer Garrison, contact #[phone]. Admission and Anticipated Discharge Date Admission Date: August 12, 2021 Subjective Patient was seen and examined for follow-up of GI bleed Sitting in chair with no acute distress Patient said that she feels fine early Diet was advanced to full liquid yesterday but today nurse said after patient ate breakfast she felt nauseated she said she has not had any dark stools or vomiting Denies any chest pain, palpitation, dizziness, shortness of breath. Review of Systems Review of Systems: All systems reviewed & are unremarkable except as noted in Subjective Physical Exam Physical Exam: General- No acute distress Head- at raumatic Eyes- PER RL, EOMI, ENT- valdemar pharynx clear Neck - supple, no JVD L ungs- clear to aus cultation Heart- r egular rhythm; no murmur Abdomen- no rmal bowel sounds, soft, +mild tende r with palpation E xtremities- RLE e nita Neuro- alert, oriented x 3; PER RL, EOMI; no facia l palsy; no dysart hria Skin- warm & dry Results & Data Results & Data ([facility]) Vital Signs (Past 12 Hours) Vital Signs Temp Pulse Pulse Resp BP Pulse Ox 08/16/21 19:00 36.3 C L 107 H 18 108/71 97 08/16/21 16:48 116 H 20 97 08/16/21 15:52 36.6 C 110 H 20 115/72 96 08/16/21 15:23 111 H 08/16/21 13:09 36.6 C 113 H 16 127/84 93
[2021-08-17 08:02] LABS: Hematocrit (blood only) 35.9 % (37-47); Hemoglobin 11.5 g/dL (12.0-16.0); Mean Corpuscular Hemoglobin 33.4 pg (25-34); Mean Corpuscular Volume 104.4 fL (80-100); Mean Platelet Volume 10.1 fL (7.4-10.4); Platelet Count 156 K/uL (130-400); RDW Coefficient of Variation 21.6 % (11.5-14.5); RDW Standard Deviation 82.4 fL (36.4-46.3); Red Blood Count 3.44 M/uL (4.2-5.4); White Blood Count 6.51 K/uL (4.8-10.8)
[2021-08-17] MEDS: INSULIN ASPART 100 UNITS/ML 3 ML PEN SC SCH ×4 (08:31→21:32)
[2021-08-17] MEDS: APIXABAN 5 MG TABLET PO SCH ×2 (08:32→21:31)
[2021-08-17] MEDS: PANTOprazole 40 MG in SYRINGE 0 ML IV SCH ×2 (08:33→21:30)
[2021-08-17] MEDS: MULTIVITAMIN TAB PO SCH (08:33)
[2021-08-17 08:35] LABS: BUN Creatinine Ratio 25.9 (10-20); Calcium 8.8 mg/dl (8.5-10.1); Creatinine Clr Calc Pharmacy 31.9 ml/min; Est GFR (African American) 32.3 ml/min; Est GFR (Non-African American) 27.9 ml/min; Potassium 4.5 mmol/L (3.5-5.1)
--- NOTE | 2021-08-17 11:38 | Nephrology Progress Note ---
Date of Service August 17, 2021 Assessment & Plan (1) Acute kidney injury superimposed on CKD: Plan: Improving nonoliguric stage 1 ANNIE on CKD 3 in complex patient. 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 Creatinine peak was 11/5 at 2.8; slowly improving now . Creatinine slightly better today at 2.1. Electrolytes are stable though she does have an emerging AG metabolic acidosis. Labile renal function recently but baseline about 1.2. -daily bmp -monitor tolerance of po now w/ discontinuation of esophageal stent -Avoid further contrast -She will likely need Lasix in a day or 2 but continue to defer as renal function slowly improves and she resumes po -She will need close nephro f/u at d/c, ideally in [place] area. Care coordinated w/ Dr Ansari (2) Anemia: Plan: Patient with an upper GI bleed. Hemoglobin of 11.5 today. She is on Eliquis and status post IVC filter. No need for STEF. Admission and Anticipated Discharge Date Admission Date: August 12, 2021 Subjective Seen on rounds this morning at approximately 0900. Attempted regular food yesterday and had severe esophageal pain with this and dry heaves Back on clear liquids and yogurt currently which she is tolerating. Denies prior history of paracentesis requirements before August 13. As of breath unchanged. She does believe that there would may be reaccumulating in her abdomen. Mild lower extremity edema. No new Or worrisome voiding symptoms. Endorses significant thirst Review of Systems Review of Systems: All systems reviewed & are unremarkable except as noted in Subjective Physical Exam 2 Constitutional: well developed, well nourished, + frail appearing and c ooperative; no acute distress Eyes: EOM intact bilaterally ENMT: Ears: no external ear abnormality Nose: no external nose abnormality Mouth: + dry oral mucous membranes Neck: no nuchal rigidity Respiratory: normal respiratory effort Auscultation: + diminished lung sounds (Bilateral bases) Cardiovascular: Rate/Rhythm: + tachycardic Heart Sounds: normal S1 and normal S2 Extremities: + edema (2-3+ pedal edema and right greater than left lower extremity edema from 1+ ) Gastrointestinal (Abdomen): Inspection/Auscultation: normal bowel sounds Percussion/Palpation: abdomen soft; abdomen nontender Musculoskeletal: Extremities: strength 5/5 throughout Skin: no rashes, warm and dry Neurologic: dash, fluent speech, no tremor Psychiatric: Orientation: alert and oriented x 3 Insight: good insight Judgement: good judgement Results & Data ([facility]) Vital Signs (Past 12 Hours) Vital Signs Temp Pulse Pulse Resp BP Pulse Ox 08/17/21 11:03 98 08/17/21 10:21 36.7 C 106 H 16 111/78 98 08/17/21 08:00 104 H 08/17/21 07:37 36.2 C L 106 H 16 117/84 97 08/17/21 04:00 36.4 C L 103 H 18 112/79 98 08/17/21 01:00 93 H Laboratory Results 08/17/21 07:38 08/17/21 07:38 Diagnostic Findings cxr Bilateral small pleural effusions and airspace opacities, similar in extent to prior exam.
[2021-08-17] MEDS: oxyCODONE HCL IR 5 MG TAB (IMMEDIATE RELEASE) PO PRN (15:43)
[2021-08-17] MEDS: ONDANSETRON INJ 2 MG/ML 2 ML VIAL IV PRN (18:39)
[2021-08-17] MEDS: SIMVASTATIN 20 MG TAB PO SCH (21:30)
[2021-08-17] MEDS: OLANZAPINE 2.5 MG TAB PO SCH (21:31)
[2021-08-17] MEDS: ZOLPIDEM TARTRATE 10 MG TAB PO PRN (22:43)
--- NOTE | 2021-08-17 23:58 | Hospitalist Progress Note ---
Date of Service August 17, 2021 Assessment & Plan (1) UGIB (upper gastrointestinal bleed): Plan: Present on admission with episode of current hematemesis Hemoglobin on admission 10.8 and dropped to 9.1 Possible related to anticoagulation she patient was trying to Eliquis yesterday Compared to previous examination, there has been interval placement of a distal esophageal stent extending through a mass at the GE junction which extends into the gastric fundus. Fluid and debris are seen within the mass as described on concurrent CT of the chest from 08/12/2021.. Compared to the previous examination, there is increasing moderate to marked abdominal and pelvic ascites. Status post 1 unit PRBC given earlier Status post K Centra administered in the ER Hemoglobin 10.5 today Gastro on board S/P EGD esophagitis and gastritis, stent removal Case discussed with gastro Dr. Villareal that recommended to hold anticoagulant for 24 hours from EGD Okay with GI to start on IV heparin drip with no bolus yesterday as per GI Tolerate clear liquid diet, then advance to full liquid, but developed nausea today Diet advanced to soft, will monitor Continue monitor H&H closely PE/DVT [facility] Pulmonary Embolism Last admission Lovenox was transition to Eliquis Oncology recommended Eliquis [address] Rose was notified about patient was back due to GI bleed Anticoagulant was on hold due to recent GI bleed Status post IVC filter placement by vascular She was on IV heparin drip for about 24 hours, then transition to Eliquis Continue Eliquis 5 mg twice daily Continue monitor closely for sign of bleeding Ascites Mostly due to the malignancy CT abd/pelvis showed increasing moderate to marked abdominal and pelvic ascites. Status post paracentesis where 3.5 L ascites fluid removed Bilateral pleural Effusion CT chest showed slight interval decrease in small bilateral pleural effusions with compressive atelectasis at both lung bases. Lasix on hold due to elevated creatinine Saturating well on room air Continue monitor closely Ovarian ca: Metastatic disease: Initial diagnosis in 2013 Current treatment plan is p.o. Votrient -however on hold due to recent fatigue Follows with Dr. Weinberg and Misti Zamorano PA-C Diabetes mellitus, type 2: -Hgb A1c 5.4 03/2021 -Hold oral agents, NovoLog per protocol while hospitalized Shortness of breath Patient said that she felt congested CXR showed bilateral small pleural effusions and airspace opacities, similar in extent to prior exam. (5) CKD (chronic kidney disease), stage III: ANNIE on CKD stage III -Baseline creatinine runs in the low 1's -Creatinine slightly improved to 1.9 - Continue to hold Lasix, lisinopril and Metformin -Continue monitor BMP -Discussed with nephrology recommend to check BMP weekly x3 on discharge -Okay from nephrology standpoint to discharge home -We will need follow-up to nephrology in 2 to 4 weeks (6) DVT prophylaxis:on SCDs Anticoagulant on hold due to acute GI bleed (7) Mild right-sided hydronephrosis urology on board-no plan for any intervention since hydronephrosis seems to be chronic DNR Patient daughter requesting updates from providers. Ms. Wilmer Garrison, contact #[phone]. Admission and Anticipated Discharge Date Admission Date: August 12, 2021 Subjective Patient was seen and examined for follow-up of GI bleed Sitting in chair with no acute distress with daughter was in the room Patient said that she feels fine much better she said she has not had any dark stools or vomiting She tolerated soft diet with no nausea and vomiting Denies any chest pain, palpitation, dizziness, shortness of breath. Review of Systems Review of Systems: All systems reviewed & are unremarkable except as noted in Subjective Physical Exam Physical Exam: General- No acute distress Head- at raumatic Eyes- PER RL, EOMI, ENT- valdemar pharynx clear Neck - supple, no JVD L ungs- clear to aus cultation Heart- r egular rhythm; no murmur Abdomen- no rmal bowel sounds, soft, +mild tende r with palpation E xtremities- RLE e nita Neuro- alert, oriented x 3; PER RL, EOMI; no facia l palsy; no dysart hria Skin- warm & dry Results & Data Results & Data ([facility]) Vital Signs (Past 12 Hours) Vital Signs Temp Pulse Pulse Resp BP BP Pulse Ox 08/17/21 23:32 36.4 C L 103 H 18 113/80 94 08/17/21 19:59 36.4 C L 103 H 18 117/87 95 08/17/21 18:23 104 H 08/17/21 15:04 36.4 C L 105 H 18 117/84 95
[2021-08-18] MEDS: ALBUT/IPRATROP 3MG/0.5MG NEB 3 ML VIAL NEB PRN (03:51)
[2021-08-18 06:29] LABS: Hematocrit (blood only) 36.1 % (37-47); Mean Corpuscular Hemoglobin 34.6 pg (25-34); Mean Corpuscular Hgb Conc 33.2 g/dL (32-36); Mean Platelet Volume 9.7 fL (7.4-10.4); Platelet Count 181 K/uL (130-400); RDW Coefficient of Variation 21.1 % (11.5-14.5); RDW Standard Deviation 79.8 fL (36.4-46.3); Red Blood Count 3.47 M/uL (4.2-5.4); White Blood Count 9.78 K/uL (4.8-10.8)
[2021-08-18 07:05] LABS: BUN Creatinine Ratio 25.1 (10-20); Calcium 8.5 mg/dl (8.5-10.1); Creatinine Clr Calc Pharmacy 28.2 ml/min; Est GFR (African American) 27.7 ml/min; Est GFR (Non-African American) 23.9 ml/min; Potassium 4.9 mmol/L (3.5-5.1)
--- NOTE | 2021-08-18 08:22 | Hospitalist Progress Note ---
Date of Service August 18, 2021 Assessment & Plan (1) UGIB (upper gastrointestinal bleed): Plan: Present on admission with episode of current hematemesis Hemoglobin on admission 10.8 and dropped to 9.1 Possible related to anticoagulation /Eliquis Compared to previous examination, there has been interval placement of a distal esophageal stent extending through a mass at the GE junction which extends into the gastric fundus. Fluid and debris are seen within the mass as described on concurrent CT of the chest from 08/12/2021.. Compared to the previous examination, there is increasing moderate to marked abdominal and pelvic ascites. Status post 1 unit PRBC given earlier Status post K Centra administered in the ER Current Hemoglobin 12.0 (08/18/21) GI consulted S/P EGD esophagitis and gastritis, stent removal Case discussed with GI - Dr. Villareal that recommended to hold anticoagulant for 24 hours from EGD Okay with GI to start on IV heparin drip with no bolus as per GI Currently on Eliquis No more emesis, dark stools, hemoglobin stable as above Patient able to tolerate soft diet PE/DVT Saddle Pulmonary Embolism Last admission Lovenox was transition to Eliquis Oncology recommended Eliquis [address] Rose was notified about patient was back due to GI bleed Anticoagulant was on hold due to recent GI bleed Status post IVC filter placement by vascular She was on IV heparin drip for about 24 hours, then transitioned to Eliquis Continue monitor closely Ascites Mostly due to the malignancy CT abd/pelvis showed increasing moderate to marked abdominal and pelvic ascites. Status post paracentesis where 3.5 L ascites fluid removed Bilateral pleural Effusion CT chest showed slight interval decrease in small bilateral pleural effusions with compressive atelectasis at both lung bases. Lasix on due to elevated creatinine Saturating well on room air Continue monitor closely Started on IV Lasix 40 IV twice daily, will be discharged on 80 p.o. twice daily (discussed with nephrology) Ovarian ca: Metastatic disease: Initial diagnosis in 2013 Current treatment plan is p.o. Votrient -however on hold due to recent fatigue Follows with Dr. Weinberg and KRISTIAN Umana Dr. to see the pt tomorrow (08/19/21) - discussed care with her over the phone today Diabetes mellitus, type 2: -Hgb A1c 5.4 03/2021 -Hold oral agents, NovoLog per protocol while hospitalized Shortness of breath CXR showed bilateral small pleural effusions and airspace opacities, similar in extent to prior exam. Currently on RA CKD (chronic kidney disease), stage III: ANNIE on CKD stage III -Baseline creatinine runs in the low 1's -Creatinine slightly improved to 1.9 - Continued to hold Lasix, lisinopril and Metformin -Continue monitor BMP -Discussed with nephrology recommend to check BMP weekly x3 on discharge -Okay from nephrology standpoint to discharge home -We will need follow-up to nephrology in 2 to 4 weeks (6) DVT prophylaxis: Eliquis (7) Mild right-sided hydronephrosis urology contacted -no plan for any intervention since hydronephrosis seems to be chronic DNR Patient daughter's Ms. Wilmer Garrison, contact #[phone]. Admission and Anticipated Discharge Date Admission Date: August 12, 2021 Subjective Patient seen in follow-up of GI bleed, ANNIE on CKD, in the setting of metastatic ovarian cancer Sitting up in bed in NAD Reports having bowel movements, able to eat soft foods without difficulty No dark stools, or emesis, no abdominal pain Denies any chest pain, palpitation, dizziness, shortness of breath. Discussed with nephrology and oncology, oncology plans to see the patient tomorrow in their clinic Nephrology discussed the need for diuresis and close follow-up Review of Systems Review of Systems: All systems reviewed & are unremarkable except as noted in Subjective Physical Exam Physical Exam: General- No acute distress Head- atraumatic Eyes- PERRL, EOMI, ENT- oropharynx clear Neck- supple, no JVD Lungs- clear to auscultation upper lobes, diminished at bases b/l Heart- regular rhythm; no murmur Abdomen- normal bowel sounds, soft, +mild tender with palpation Extremities- LE edema b/l R>L Neuro- alert, oriented x 3; PERRL, EOMI; no facial palsy; no dysarthria Skin- warm &dry Results & Data Results & [facility] ([facility]) Vital Signs (Past 12 Hours) Vital Signs Temp Pulse Pulse Resp BP BP Pulse Ox 08/18/21 04:00 36.4 C L 117 H 18 129/84 96 08/18/21 03:52 113 H 20 95 08/18/21 00:42 97 H 11/10/21 00:14 36.4 C L 108 H 20 138/93 95 08/17/21 23:32 36.4 C L 103 H 18 113/80 94 Laboratory Results 08/18/21 08/18/21 08/18/21 Range/Units 07:53 06:14 06:14 WBC 9.78 (4.8-10.8) K/uL RBC 3.47 L (4.2-5.4) M/uL Hgb 12.0 (12.0-16.0) g/dL Hct 36.1 L (37-47) % MCV 104.0 H (80-100) fL MCH 34.6 H (25-34) pg MCHC 33.2 (32-36) g/dL RDW Std Deviation 79.8 H (36.4-46.3) fL RDW Coeff of Cely 21.1 H (11.5-14.5) % Plt Count 181 (130-400) K/uL MPV 9.7 (7.4-10.4) fL Sodium 129 L (136-145) mmol/L Potassium 4.9 (3.5-5.1) mmol/L Chloride 100 (98-107) mmol/L Carbon Dioxide 21 (21-32) mmol/L Anion Gap 8.0 (3-11) BUN 52 H (7-18) mg/dl Creatinine 2.09 H (0.6-1.2) mg/dl Est Cr Clr Drug Dosing 28.2 ml/min Est GFR ( Amer) 27.7 ml/min Est GFR (Non-Af Amer) 23.9 ml/min BUN/Creatinine Ratio 25.1 H (10-20) Glucose 144 H (70-99) mg/dl POC Glucose 130 H (70-99) mg/dl Calcium 8.5 (8.5-10.1) mg/dl 08/17/21 08/17/21 08/17/21 Range/Units 19:56 16:49 11:00 WBC (4.8-10.8) K/uL RBC (4.2-5.4) M/uL Hgb (12.0-16.0) g/dL Hct (37-47) % MCV (80-100) fL MCH (25-34) pg MCHC (32-36) g/dL RDW Std Deviation (36.4-46.3) fL RDW Coeff of Cley (11.5-14.5) % Plt Count (130-400) K/uL MPV (7.4-10.4) fL Sodium (136-145) mmol/L Potassium (3.5-5.1) mmol/L Chloride (98-107) mmol/L Carbon Dioxide (21-32) mmol/L Anion Gap (3-11) BUN (7-18) mg/dl Creatinine (0.6-1.2) mg/dl Est Cr Clr Drug Dosing ml/min Est GFR ( Amer) ml/min Est GFR (Non-Af Amer) ml/min BUN/Creatinine Ratio (10-20) Glucose (70-99) mg/dl POC Glucose 130 H 121 H 156 H (70-99) mg/dl Calcium (8.5-10.1) mg/dl 08/17/21 Range/Units 07:38 WBC (4.8-10.8) K/uL RBC (4.2-5.4) M/uL Hgb (12.0-16.0) g/dL Hct (37-47) % MCV (80-100) fL MCH (25-34) pg MCHC (32-36) g/dL RDW Std Deviation (36.4-46.3) fL RDW Coeff of Cely (11.5-14.5) % Plt Count (130-400) K/uL MPV (7.4-10.4) fL Sodium 134 L (136-145) mmol/L Potassium 4.5 (3.5-5.1) mmol/L Chloride 106 (98-107) mmol/L Carbon Dioxide 18 L (21-32) mmol/L Anion Gap 11.0 (3-11) BUN 48 H (7-18) mg/dl Creatinine 1.84 H (0.6-1.2) mg/dl Est Cr Clr Drug Dosing 31.9 ml/min Est GFR ( Amer) 32.3 ml/min Est GFR (Non-Af Amer) 27.9 ml/min BUN/Creatinine Ratio 25.9 H (10-20) Glucose 121 H (70-99) mg/dl POC Glucose (70-99) mg/dl Calcium 8.8 (8.5-10.1) mg/dl Medications Administered Current Inpatient Medications Acetaminophen (Acetaminophen 325 Mg Tab) 650 mg PO Q6H PRN PRN Reason: Fever/pain Stop: 09/12/21 01:46 Last Admin: 08/14/21 02:44 Dose: 650 mg Documented by: Albuterol (Albut/Ipratrop 3mg/0.5mg Neb 3 Ml Vial) 3 ml NEB Q4R PRN PRN Reason: sob Stop: 09/15/21 18:59 Last Admin: 08/18/21 03:51 Dose: 3 ml Documented by: Apixaban (Apixaban 5 Mg Tablet) 5 mg PO BID FERNANDO Stop: 09/14/21 20:59 Last Admin: 08/17/21 21:31 Dose: 5 mg Documented by: Dextrose (Dextrose 50% 50 Ml Syringe) 25 - 50 ml IV UD PRN; Protocol PRN Reason: Hypoglycemia Protocol Stop: 09/12/21 01:46 Glucagon (Glucagon For Inj 1 Mg Vial) 1 mg SQ UD PRN; Protocol PRN Reason: Hypoglycemia Protocol Stop: 09/12/21 01:46 Glucose (Glucose 10 Tabs/Tube) 4 - 8 tabs PO UD PRN; Protocol PRN Reason: Hypoglycemia Protocol Stop: 09/12/21 01:46 Glucose (Glucose 40% Gel 15 Gm Tube) 15 - 30 gm PO UD PRN; Protocol PRN Reason: Hypoglycemia Protocol Stop: 09/12/21 01:46 Hydromorphone HCl (Hydromorphone Inj 0.5 Mg/0.5 Ml Syr) 0.5 mg IV Q3H PRN PRN Reason: Pain Stop: 08/27/21 01:46 Promethazine HCl 12.5 mg/ (Sodium Chloride) 50.5 mls @ 202 mls/hr IV Q6H PRN PRN Reason: Nausea And Vomiting Stop: 09/12/21 01:46 Last Infusion: 08/13/21 20:57 Dose: Infused Documented by: Pantoprazole Sodium 40 mg/ (Syringe) 10 mls @ 5 mls/min IV BID FERNANDO Stop: 09/12/21 20:59 Last Admin: 08/17/21 21:30 Dose: 5 mls/min Documented by: Insulin Aspart (Insulin Aspart 100 Units/Ml 3 Ml Pen) 0 units SC ACHS FERNANDO Stop: 09/12/21 01:59 Last Admin: 08/17/21 21:32 Dose: Not Given Documented by: Lorazepam (Lorazepam 0.5 Mg Tab) 0.5 mg PO TID PRN PRN Reason: Anxiety Stop: 09/12/21 01:46 Last Admin: 08/14/21 22:29 Dose: 0.5 mg Documented by: Miscellaneous (Carbohydrates For Hypoglycemia ) 15 - 30 gm PO UD PRN PRN Reason: Hypoglycemia Protocol Stop: 09/12/21 01:46 Multivitamins (Multivitamin Tab) 1 tab PO QAM [facility] Stop: 09/12/21 08:59 Last Admin: 08/17/21 08:33 Dose: 1 tab Documented by: Olanzapine (Olanzapine 2.5 Mg Tab) 2.5 mg PO HS [facility] Stop: 09/12/21 20:59 Last Admin: 08/17/21 21:31 Dose: 2.5 mg Documented by: Ondansetron HCl (Ondansetron Inj 2 Mg/Ml 2 Ml Vial) 4 mg IV Q8H PRN PRN Reason: Nausea Stop: 09/12/21 15:32 Last Admin: 08/17/21 18:39 Dose: 4 mg Documented by: Oxycodone HCl (Oxycodone Hcl Ir 5 Mg Tab (Immediate Release)) 5 mg PO Q4 PRN PRN Reason: Pain Stop: 08/27/21 01:46 Last Admin: 08/17/21 15:43 Dose: 5 mg Documented by: Simvastatin (Simvastatin 20 Mg Tab) 20 mg PO PM FERNANDO Stop: 09/12/21 20:59 Last Admin: 08/17/21 21:30 Dose: 20 mg Documented by: Zolpidem Tartrate (Zolpidem Tartrate 10 Mg Tab) 10 mg PO HS PRN PRN Reason: Sleep Stop: 09/14/21 21:02 Last Admin: 08/17/21 22:43 Dose: 10 mg Documented by:
--- NOTE | 2021-08-18 08:49 | Nephrology Progress Note ---
Date of Service August 18, 2021 Assessment & Plan (1) Hyponatremia: Plan: hypervolemic hyponatremia > started lasix, FR, low Na diet; full w/u not needed though will ck osm status >recheck bmp 1700 with serum osms (2) Acute kidney injury superimposed on CKD: Plan: Improving nonoliguric stage 1 ANNIE on CKD 3 in an exceptionally complex patient. Patient with multifactorial acute kidney injury likely due to contrast-induced nephropathy after her CT 08/03 for PE and complicated by new need for pa racentesis w/ presume malignant ascites (liver met and omental/peritoneal metastasis; may also have prerenal component with large GE junction mass s/p esoph stent removal). Creatinine peak was 08/13 at 2.8; slowly improving until 08/18 when upward trend started to recur . Creatinine slightly better today at 2.1. Electrolytes are stable though she does have an emerging AG metabolic acidosis. Labile renal function recently but baseline about 1.2. -daily bmp -monitor tolerance of po now w/ discontinuation of esophageal stent -started lasix 40 mg IV bid17 today to manage volume/electrolytes >> likely to worsen renal function >>since plan is given other competing clinical needs to d/c her for reeval for further chemo, will change BELOW -Avoid further contrast DISCHARGE RECOMMENDATIONS -weekly bmp to come to nephrology x 3 -hold lisinopril and metformin at d/c -d/c on lasix 80 mg po bid 17 -d/c on 1.5L FR (protein shakes don't count toward this) and <2 gm daily Na diet -She will need close nephro f/u at d/c, ideally in [place] area in 2-4 wks -daily standing wts at home care coordinated w/ dr Watters (3) Anemia: Plan: Patient with an upper GI bleed. Hemoglobin of 11.5 today. She is on Eliquis and status post IVC filter. STEF contraindicated unless deemed palliative. (4) Metastatic disease: Plan: -she has had several new onset game-changing clinical complications in past 2-3 wks > removal of esophageal stent (but mass it was blocking still there), saddle PE, new onset ascites/anasarca needing paracentesis and lasix, ANNIE on CKD. --consider palliative consultation or other to discuss goals of care > she is very eager for hospital d/c [facility] but clinical issues may not be able to be stabilized; concern she may need hospice if getting home is the top goal Admission and Anticipated Discharge Date Admission Date: August 12, 2021 Subjective seen on rounds w/ dr watters at about 0930; remains quite tired, some sob; to see oncology as OP tomorrow; tolerating po but thickened liquids mostly Review of Systems Review of Systems: All systems reviewed & are unremarkable except as noted in Subjective Physical Exam Constitutional: well developed, well nourished, + frail appearing and cooperative; no acute distress Eyes: EOM intact bilaterally ENMT: Ears: no external ear abnormality Nose: no external nose abnormality Mouth: + dry oral mucous membranes Neck: no nuchal rigidity Respiratory: normal respiratory effort Auscultation: + diminished lung sounds (Bilateral bases) Cardiovascular: Rate/Rhythm: + tachycardic Heart Sounds: normal S1 and normal S2 Extremities: + edema (2-3+ pedal edema and right greater than left lower extremity edema from 1+ ) Gastrointestinal (Abdomen): Inspection/Auscultation: normal bowel sounds Percussion/Palpation: abdomen soft; abdomen nontender Musculoskeletal: Extremities: strength 5/5 throughout Skin: no rashes, warm and dry Psychiatric: Orientation: alert and oriented x 3 Insight: good insight Judgement: good judgement Results & Data ([facility]) Vital Signs (Past 12 Hours) Vital Signs Temp Pulse Pulse Resp BP BP Pulse Ox 08/18/21 04:00 36.4 C L 117 H 18 129/84 96 08/18/21 03:52 113 H 20 95 08/18/21 00:42 97 H 08/18/21 00:14 36.4 C L 108 H 20 138/93 95 08/17/21 23:32 36.4 C L 103 H 18 113/80 94 Laboratory Results 08/18/21 06:14 08/18/21 06:14
[2021-08-18] MEDS ORDERED: FUROSEMIDE 40 MG/4 ML VIAL IV SCH (09:00)
[2021-08-18] MEDS: MULTIVITAMIN TAB PO SCH (09:16)
[2021-08-18] MEDS: APIXABAN 5 MG TABLET PO SCH (09:16)
[2021-08-18] MEDS: PANTOprazole 40 MG in SYRINGE 0 ML IV SCH (09:58)
[2021-08-18] MEDS: INSULIN ASPART 100 UNITS/ML 3 ML PEN SC SCH (09:59)
--- NOTE | 2021-08-18 10:19 | Discharge Summary ---
Date of Service August 18, 2021 Admission HPI Per Admitting Provider History obtained from patient, family, and records. Medical history significant for saddle PE/DVT on Eliquis, metastatic ovarian cancer status post surgery/radiation status post chemotherapy, esophageal stenosis status post stent placement, HTN, hyperlipidemia, CRI (baseline creatinine 1.4), chronic anemia (baseline hemoglobin 10), DM2 on oral medications, anxiety disorder, past tobacco abuse. Recent confinement August 03 to August 12, 2021 for acute saddle pulmonary embolism with LE DVT. Patient subsequently transitioned from Heparin to Eliquis secondary to worsening renal function during confinement as per propagation manager recommendations- serum creatinine progressively increased from 1.36 on admission to 2.75 yesterday when patient signed out AGAINST MEDICAL ADVICE. Mild right hydronephrosis on admission CT. Patient seen by Nephrology during confinement. Patient also underwent EGD for dysphagia symptoms. EGD showed gastritis and distal esophageal stenosis due to malignant submucosal infiltration. Esophageal stent placed and p.o. PPI recommended. Post stent placement, patient still with achy epigastric discomfort and intermittent nausea emesis. A few hours ago at home patient noted hematemesis, same epigastric discomfort. No black/bloody stools. No chest pain. Usual S OB on exertion. Poor appetite. Fluid retention with leg swelling/abdominal distention as per patient. Patient brought to ER by daughter for evaluation. IV PPI, Kcentra administered for UGI B secondary to Eliquis. 1 unit packed RBC administered at the ER. 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 Admission Exam Per Admitting Provider GENERAL: Comfortable, slightly anxious, no respiratory distress SKIN: Pallor , warm HEENT: Pale palpebral conjunctivae, no ptosis, dry buccal mucosa NECK : Supple, no tenderness CHEST : CTA, no tenderness HEART : Tachycardic, no obvious murmurs ABDOMEN: Some distention, epigastric tenderness EXTREMITIES : Bilateral LE swelling without tenderness, no other conspicuous deformities noted NEUROLOGIC : Coherent, no facial asymmetry, no other gross focality Principal Diagnosis Upper GI bleed DVT/PE Ovarian cancer with metastasis Ascites Hyponatremia ANNIE on CKD stage III Discharge Exam General- No acute distress Head- atraumatic Eyes- PERRL, EOMI, ENT- oropharynx clear Neck- supple, no JVD Lungs- clear to auscultation upper lobes, diminished at bases b/l Heart- regular rhythm; no murmur Abdomen- normal bowel sounds, soft, +mild tender with palpation Extremities- LE edema b/l R>L Neuro- alert, oriented x 3; PERRL, EOMI; no facial palsy; no dysarthria Skin- warm &dry Discharge Data Allergies Allergy/AdvReac Type Severity Reaction Status Date / Time No Known Allergies Allergy Verified 08/12/21 22:17 Consultations 08/12/21 23:04 ED Decision to Admit Stat 08/12/21 23:46 Consult Vascular Surgery Routine 08/13/21 00:14 Consult Gastroenterology Routine 08/13/21 21:00 Consult Nephrology Routine Consult Urology Routine Procedures Performed Operation Date: 08/13/21 12:05 Actual Procedures p Esophagogastroduodenoscopy, removal of stent. - Goyo Villareal MD Operation Date: 08/13/21 13:20 Actual Procedures p Insertion of Vena Cava Filter, Right Femoral Approach, Ultrasound Localization of Right Internal Femoral Vein, Fluroscopy for Positioning(Right) - Sidney Danielson MD Operation Date: 08/13/21 16:30 <No data on this case meets the specified criteria> Ordered Studies 08/12/21 21:48 CT abd pelvis wo con Urgent CT chest diagnostic wo con Urgent 08/13/21 08:02 US paracentesis abd w/image Urgent 08/13/21 11:38 EV IVC filter placement Routine Hospital Course (1) UGIB (upper gastrointestinal bleed): Present on admission with episode of current hematemesis Hemoglobin on admission 10.8 and dropped to 9.1 Possible related to anticoagulation /Eliquis Compared to previous examination, there has been interval placement of a distal esophageal stent extending through a mass at the GE junction which extends into the gastric fundus. Fluid and debris are seen within the mass as described on concurrent CT of the chest from 08/12/2021.. Compared to the previous examination, there is increasing moderate to marked abdominal and pelvic ascites. Status post 1 unit PRBC given earlier Status post K Centra administered in the ER Current Hemoglobin 12.0 (08/18/21) GI consulted S/P EGD esophagitis and gastritis, stent removal Case discussed with GI - Dr. Villareal that recommended to hold anticoagulant for 24 hours from EGD Okay with GI to start on IV heparin drip with no bolus as per GI Currently on Eliquis No more emesis, dark stools, hemoglobin stable as above Patient able to tolerate soft diet PE/DVT Saddle Pulmonary Embolism Last admission Lovenox was transition to Eliquis Oncology recommended Eliquis [address] Rose was notified about patient was back due to GI bleed Anticoagulant was on hold due to recent GI bleed Status post IVC filter placement by vascular She was on IV heparin drip for about 24 hours, then transitioned to Eliquis Continue monitor closely Ascites Mostly due to the malignancy CT abd/pelvis showed increasing moderate to marked abdominal and pelvic ascites. Status post paracentesis where 3.5 L ascites fluid removed Bilateral pleural Effusion CT chest showed slight interval decrease in small bilateral pleural effusions with compressive atelectasis at both lung bases. Lasix on due to elevated creatinine Saturating well on room air Continue monitor closely Started on IV Lasix 40 IV twice daily, will be discharged on 80 p.o. twice daily (discussed with nephrology) Ovarian ca: Metastatic disease: Initial diagnosis in 2013 Current treatment plan is p.o. Votrient -however on hold due to recent fatigue Follows with Dr. Weinberg and KRISTIAN Umana Dr. to see the pt tomorrow (08/19/21) - discussed care with her over the phone today Diabetes mellitus, type 2: -Hgb A1c 5.4 03/2021 -Hold oral agents, NovoLog per protocol while hospitalized Shortness of breath CXR showed bilateral small pleural effusions and airspace opacities, similar in extent to prior exam. Currently on RA CKD (chronic kidney disease), stage III: ANNIE on CKD stage III -Baseline creatinine runs in the low 1's -Creatinine slightly improved to 1.9 - Continued to hold Lasix, lisinopril and Metformin -Continue monitor BMP -Discussed with nephrology recommend to check BMP weekly x3 on discharge -Okay from nephrology standpoint to discharge home -We will need follow-up to nephrology in 2 to 4 weeks (6) DVT prophylaxis: Eliquis (7) Mild right-sided hydronephrosis urology contacted -no plan for any intervention since hydronephrosis seems to be chronic Code: DNR Patient daughter's Ms. Wilmer Garrison, contact #[phone]. Total Time Total Time Spent Total Time Spent (In Minutes): 40 Discharge Plan Discharge Items Patient Disposition: Home - Self-Care Reason For Visit: SADDLE PE, UGIB Discharge Diagnosis: Upper GI bleed DVT/PE Ovarian cancer with metastasis Ascites Hyponatremia ANNIE on CKD stage III Activity: Per Instructions section Non-emergency contact: Primary Care Provider and Oncologist Call non-emergency contact if: you have any medication questions and your symptoms worsen Follow-up/Referrals: Arpit Whitt MD [Primary Care Provider] - (Date & Time 08/24/2021 4:20 PM Provider Arpit Whitt MD Department [facility] ) Diet: Full liquid and Low Sodium (2gm) Fluids: 1500ml (6 cups) Diet Comment: Recommend protein shakes/boost drink, yogurt, easy to swallow Addtl Attending Provider Instructions: Follow-up with your oncologist, the appointment was scheduled for you for tomorrow, August 19. Follow-up with your primary care provider, the appointment was scheduled for you for August 24. You should get blood work, BMP, when you are seen either by your oncologist or primary care doctor. You will also need to follow-up with nephrology/kidney doctor. You were started on a new medication, furosemide/Lasix, this is a diuretic (wate r pill) - take 80 mg twice a day, until further discussion with box printer. Pending Studies at Discharge: No Stand-Alone Forms: My [employer], Smoking Cessation Medications and DC Order Prescriptions: New furosemide 80 mg tablet 80 mg PO BID Qty: 30 RF: 0 Continued multivitamin Tablet 1 tab PO QAM RF: 0 metformin 500 mg Tablet 1,000 mg PO BID RF: 0 lorazepam 0.5 mg Tablet 0.5 mg PO TID PRN (Reason: Anxiety) RF: 0 simvastatin 20 mg Tablet 20 mg PO PM RF: 0 zolpidem 10 mg Tablet 1 tab PO HS RF: 0 prochlorperazine maleate [Compazine] 5 mg Tablet 5 mg PO TID PRN (Reason: Nausea) RF: 0 ondansetron HCl 8 mg tablet 8 mg PO UD PRN (Reason: Nausea) RF: 0 olanzapine 2.5 mg tablet 2.5 mg PO HS RF: 0 oxycodone 5 mg tablet 5 mg PO Q4 PRN (Reason: Pain) RF: 0 Eliquis 5 mg Tablet 5 mg PO UD Qty: 74 RF: 0 pantoprazole 40 mg tablet,delayed release (DR/EC) 40 mg PO BID Qty: 60 RF: 0 Discontinued lisinopril 10 mg Tablet 10 mg PO QAM RF: 0 Discharge Orders: Discharge Order (Routine); Ordered 08/18/21 Ordered By: Velasquez Branch/Other Patient Handouts: High Blood Sugar (Hyperglycemia), Managing Type 2 Diabetes Admission Data Admit Date/Time: 08/12/21 23:39 Attending Provider: Velasquez Watters Admit Provider: Ismael Navas Primary Care Provider: Arpit Whitt Other Providers: Ismael Navas ; Irais sOuna ; Sheila Davis ; Sidney Danielson ; Carrie Hall ; Macrina Diaz ; Marlon Waldrop ; Tameka Ojeda ; Eleanor Pierre ; Rosa Monroe ; Lita Calvin ; Supriya Amaya ; Lynsey Moreno ; Antoine Montalvo ; Alicia Chi ; Bhakti Bejarano ; Faustino Bland ; Kellee Ramsey ; Lily Villatoro ; Zoie Pantoja ; Tahira Edwards ; Goyo Villareal ; Chloe Juan ; Michael Thomas ; Zofia Cazares RParminder ; Mague Eagle ; Bob Murrell. ; Davy Lundberg ; Perez Tello ; Brian Duvall ; Danny Monreal ; Misti Farmer ; Kulwinder Trivedi ; Erica Osuna ; Amisha Burden ; Anna King ; Emanuel Manuel ; Fer Farr ; Audra Mackey ; Nimco King ; Jonatan Whitten ; [facility] ; David Ansari
--- NOTE | 2021-08-25 13:47 | Coding Query ---
CODING QUERY To promote full compliance with coding requirements relating to patient care, provider participation is requested in all cases of senior medical writer uncertainty. Please assist us with the question(s) below: Coding Question(s): The Discharge Summary documents under the Principal Diagnosis area, "DVT/PE" and under the Hospital Course there is documentation of , "PE/DVT Saddle Pulmonary Embolism Last admission Lovenox was transition to Eliquis Oncology recommended Eliquis [address] Rose was notified about patient was back due to GI bleed Anticoagulant was on hold due to recent GI bleed Status post IVC filter placement by vascular She was on IV heparin drip for about 24 hours, then transitioned to Eliquis Continue monitor closely", and the Vascular Consultation documents, "Pulmonary emboli: Pt with recent PE and BLE DVT, now with GI bleeding. Pt discussed with Dr Danielson, recommends pt undergo IVC filter insertion later today. Procedure, risks, benefits, and alternatives discussed with pt at Dr Danielson's request, pt is agreeable to procedure and signed consent. Acute cor pulmonale presence: unspecified Chronicity: unspecified Pulmonary embolism type: unspecified Qualified Code(s): I26.99 - Other pulmonary embolism without acute cor pulmonale", and, "65 yo f with multiple medical problems, including DMII, CKD, HTN, and metastatic ovarian ca, admitted with GI bleed, seen in consultation today for possible IVC filter insertion. Pt had previous admission up to yesterday when she signed out AMA, during which she was noted to have saddle PE and BLE DVT and was started on eliquis. She developed coffee ground emesis yesterday, and came back to ED, and AC was stopped". Saddle Pulmonary Embolism is documented throughout the record and the Op Report by Dr. Danielson documents Pre and Post-op Diagnosis of deep vein thrombosis and documents, "This is a 65-year-old female who was admitted with a GI bleed. She does have a deep venous thrombosis being treated with anticoagulation. Anticoagulation is now contraindicated due to her GI bleeding. Filter was recommended.". Please specify, in your clinical opinion, regarding DVT and Pulmonary Embolism during this admission. ( ) Acute Saddle Pulmonary Embolism and Acute Bilateral DVT ( ) Chronic Pulmonary Embolism and Chronic DVT ( x) Other Pulmonary Embolism and DVT. Please Specify__subacute DVT/PE - diagnosed during last admission ( ) History only of DVT and Pulmonary Embolism Physician's Response(s): Thank you Laura Mata Principal Diagnosis: "that condition established after study, to be chiefly responsible for occasioning the admission of the patient to the hospital for care." Co-Existing Principal Diagnosis: "when two or more diagnoses equally meet the criteria for principal diagnosis as determined by the circumstances of admission, diagnostic work up, and/or therapy provided, and the Alphabetic Index, Tabular List, or another coding guideline does not provide sequencing direction, any one of the diagnoses may be sequenced first." "When the physician has documented what appears to be a current diagnosis in the body of the record, but has not included the diagnosis in the final diagnostic statement, the physician should be asked whether the diagnosis should be added." (Source Coding Clinic 2 QTR90. p3-4) FERNANDO
== END 2021-08-18 12:53 | disposition home health service (06) | DRG 368 ==
LOC: ED 20:27 → 1E 23:39 → SUATTDRO 23:39 → 1E 08-13 01:10 → 2W 08-14 00:08